=== PATIENT | female | born 1965 | race Caucasian/White ===

== ENCOUNTER 2019-04-06 16:15 | Emergency (ER) | payer OTHER ==
[~2019-04-06] VITALS: Ht 165.1 cm; Wt 97.5 kg
[~2019-04-06 16:15] MED LIST: Armour Thyroid90 MG PO; BUPR100ER PO
[2019-04-06 17:30] LABS: BASOPHILS ABSOLUTE AUTO 0.03 K/mm3 (0.00-0.23); BASOPHILS PERCENT AUTO 0 % (0-2); EOSINOPHILS PERCENT AUTO 2 % (0-6); Hematocrit 42.9 % (33.0-51.0); IMMATURE GRAN ABSOLUTE AUTO 0.02 K/mm3 (0.00-0.10); IMMATURE GRAN PERCENT AUTO 0 % (0-1); LYMPHOCYTES ABSOLUTE AUTO 2.35 K/mm3 (0.84-5.20); LYMPHOCYTES PERCENT AUTO 35 % (21-46); MONOCYTES ABSOLUTE AUTO 0.37 K/mm3 (0.16-1.47); MONOCYTES PERCENT AUTO 6 % (4-13); Mean Corpuscular HGB 28.6 pg (26.0-34.0); Mean Corpuscular HGB Conc 32.6 g/dL (31.5-36.5); Mean Corpuscular Volume 88 fL (80-100); Mean Platelet Volume 8.9 fL (9.1-12.4); NEUTROPHILS ABSOLUTE AUTO 3.83 K/mm3 (1.96-9.15); NEUTROPHILS PERCENT AUTO 57 % (41-73); Platelet Count 332 K/mm3 (150-400); RDW Coefficient Variation 12.9 % (11.7-14.2); RDW Standard Deviation 41.7 fL (35.1-46.3); Red Blood Cell Count 4.89 M/mm3 (3.80-5.20)
[2019-04-06 17:44] LABS: International Normalized Ratio 0.99; Prothrombin Time Results 10.5 Sec (9.7-11.5)
[2019-04-06 17:58] LABS: Alanine Aminotransfer (ALT/SGP 23 U/L (12-78); Albumin, Blood 3.5 g/dL (3.4-5.0); Alk Phos 78 U/L (50-136); Anion Gap 4 mmol/L (6-16); Aspartate Aminotrans (AST/SGOT 23 U/L (12-37); Bilirubin, Total 0.2 mg/dL (0.1-1.0); Blood Urea Nitrogen 17 mg/dL (8-24); Bun/Creatinine Ratio 17.3 (12.0-20.0); CO2, Blood 29 mmol/L (21-32); Calcium, Blood 9.1 mg/dL (8.5-10.1); Chloride, Blood 110 mmol/L (98-108); Creatinine, Blood 0.98 mg/dL (0.40-1.00); Globulin, Blood 3.5 g/dL (2.2-4.0); Glomerular Filtration Rate >60 (60-); Glucose, Blood 120 mg/dL (70-99); Potassium, Blood 3.8 mmol/L (3.5-5.5); Sodium, Blood 143 mmol/L (136-145)
== END 2019-04-06 21:15 | disposition short-term general hospital (02) ==
LOC: ER 16:15
PROVIDERS: Physician Assistant
DX: G93.89 Other specified disorders of brain (principal); Z88.2 Allergy status to sulfonamides; Z79.899 Other long term (current) drug therapy
CPT/HCPCS: 36415; 70450; 80053; 82947; 85025; 85610; 93005; 93010; 96374; 99285-25; J1100

== ENCOUNTER 2019-04-26 16:41 | Emergency (ER) | payer OTHER ==
[~2019-04-26] VITALS: Ht 160 cm; Wt 82.1 kg
[2019-04-26] MEDS ORDERED: ALPR.25 PO (18:42)
[2019-04-26] MEDS ORDERED: AM STRESS PO (18:44)
[2019-04-26] MEDS ORDERED: VITAMIN D35000 UNIT PO (18:45)
[2019-04-26] MEDS ORDERED: Lexapro 10 mg T10 MG PO (22:19)
[2019-04-26] MEDS ORDERED: Klonopin0.5 MG PO (22:19)
== END 2019-04-26 22:50 | disposition home or self-care (01) ==
LOC: ER 16:41
DX: F32.9 Major depressive disorder, single episode, unspecified (principal); F41.9 Anxiety disorder, unspecified; Z88.2 Allergy status to sulfonamides; Z79.899 Other long term (current) drug therapy
CPT/HCPCS: 99284; Q3014

== ENCOUNTER → 2019-08-11 | Outpatient (CLI) | payer OTHER ==
[~2019-08-11] MED LIST changes: +ALPR.25 PO; +AM STRESS PO; +Klonopin0.5 MG PO; +Lexapro 10 mg T10 MG PO; +VITAMIN D35000 UNIT PO
== END | disposition home or self-care (01) ==
LOC: OLS 17:24 → LAB SHORT 17:24
DX: R19.7 Diarrhea, unspecified (principal)
CPT/HCPCS: 87177; 87209

== ENCOUNTER 2020-04-01 00:32 | Emergency (ER) | payer OTHER ==
[~2020-04-01] VITALS: Ht 160 cm; Wt 66.2 kg
[2020-04-01] MEDS ORDERED: LEVSOD25 PO (01:18)
[2020-04-01] MEDS ORDERED: CAPE500 (01:19)
[2020-04-01] MEDS ORDERED: OMEP20ER PO (02:02)
[2020-04-01] MEDS ORDERED: SUCR1 PO (02:02)
== END 2020-04-01 02:00 | disposition home or self-care (01) ==
LOC: ER 00:32
DX: R20.2 Paresthesia of skin (principal); M79.81 Nontraumatic hematoma of soft tissue; F32.9 Major depressive disorder, single episode, unspecified; E03.9 Hypothyroidism, unspecified; Z88.2 Allergy status to sulfonamides; Z79.899 Other long term (current) drug therapy
CPT/HCPCS: 99283

== ENCOUNTER 2020-10-24 14:30 | Emergency (ER) | payer OTHER ==
[~2020-10-24] VITALS: Ht 162.6 cm; Wt 68.0 kg
[~2020-10-24 14:30] MED LIST changes: +CAPE500; +LEVSOD25 PO; +OMEP20ER PO; +SUCR1 PO
[2020-10-24] MEDS ORDERED: EUTHYROX100 MC1 PO (14:52)
[2020-10-24] MEDS ORDERED: Lexapro5 MG PO (14:53)
[2020-10-24] MEDS ORDERED: HYDROCODONE-AC1 EA11 PO (14:53)
[2020-10-24] MEDS ORDERED: ANASTROZOLE1 M2 PO (14:53)
[2020-10-24] MEDS ORDERED: VERZENIO150 MG PO (14:53)
--- NOTE | 2020-10-24 15:03 | NUR ---
Rapid presponse called to ultra-sound rm 4, I find out that patient's spouse, Radha is in the waiting rm. Patient is brought to ER rm 3 and I bring patient around through admitting and we meet patient in the rm. Radha tells me about their 37yrs of marriage, their 4 grown children and the patient's long pa with breast cancer metastasized to her brain. He talks about the many ups and downs with the pa and how he has been along for the ride. I normalize his experience and stay with Radha provide therapeutic listening and a calming presence until the ER doctor comes in. I will continue to remain available to patient and family.
[2020-10-24 15:11] LABS: BASOPHILS ABSOLUTE AUTO 0.06 K/mm3 (0.00-0.23); BASOPHILS PERCENT AUTO 1 % (0-2); EOSINOPHILS ABSOLUTE AUTO 0.05 K/mm3 (0.00-0.68); EOSINOPHILS PERCENT AUTO 1 % (0-6); Hematocrit 37.9 % (33.0-51.0); Hemoglobin 12.6 g/dL (11.5-16.0); IMMATURE GRAN ABSOLUTE AUTO 0.02 K/mm3 (0.00-0.10); IMMATURE GRAN PERCENT AUTO 0 % (0-1); LYMPHOCYTES ABSOLUTE AUTO 2.36 K/mm3 (0.84-5.20); LYMPHOCYTES PERCENT AUTO 38 % (21-46); MONOCYTES ABSOLUTE AUTO 0.33 K/mm3 (0.16-1.47); MONOCYTES PERCENT AUTO 5 % (4-13); Mean Corpuscular HGB 34.3 pg (26.0-34.0); Mean Corpuscular HGB Conc 33.2 g/dL (31.5-36.5); Mean Corpuscular Volume 103 fL (80-100); Mean Platelet Volume 9.1 fL (9.1-12.4); NEUTROPHILS ABSOLUTE AUTO 3.41 K/mm3 (1.96-9.15); NEUTROPHILS PERCENT AUTO 55 % (41-73); Platelet Count 182 K/mm3 (150-400); RDW Coefficient Variation 13.3 % (11.7-14.2); RDW Standard Deviation 50.4 fL (35.1-46.3); Red Blood Cell Count 3.67 M/mm3 (3.80-5.20); White Blood Cell Count 6.23 K/mm3 (4.00-11.30)
[2020-10-24 15:43] LABS: Albumin, Blood 2.9 g/dL (3.4-5.0); Albumin/Globulin Ratio 0.8 (0.8-1.8); Bilirubin, Total 0.4 mg/dL (0.1-1.0); Bun/Creatinine Ratio 15.8 (12.0-20.0); Calcium, Blood 8.6 mg/dL (8.5-10.1); Creatinine, Blood 1.2 mg/dL (0.40-1.00); Globulin, Blood 3.5 g/dL (2.2-4.0); Total Protein, Blood 6.4 g/dL (6.4-8.2)
[2020-10-24] MEDS ORDERED: DEXA1 PO (17:31)
== END 2020-10-24 18:57 | disposition short-term general hospital (02) ==
LOC: ER 14:30
PROVIDERS: Emergency Medicine
DX: C79.31 Secondary malignant neoplasm of brain (principal); R56.9 Unspecified convulsions; E03.9 Hypothyroidism, unspecified; Z88.2 Allergy status to sulfonamides; Z79.899 Other long term (current) drug therapy
CPT/HCPCS: 36415; 70450; 80053; 85025; 93005; 93010; 96365; 96374; 96375; 99285-25; J1953; J2405

== ENCOUNTER 2021-01-14 14:03 | Emergency (ER) | payer OTHER ==
[~2021-01-14] VITALS: Ht 160 cm; Wt 68.0 kg
[~2021-01-14 14:03] MED LIST changes: +ANASTROZOLE1 M2 PO; +DEXA1 PO; +EUTHYROX100 MC1 PO; +HYDROCODONE-AC1 EA11 PO; +Lexapro5 MG PO; +VERZENIO150 MG PO
[2021-01-14 15:10] LABS: BASOPHILS ABSOLUTE AUTO 0.01 K/mm3 (0.00-0.23); BASOPHILS PERCENT AUTO 0 % (0-2); EOSINOPHILS ABSOLUTE AUTO 0.02 K/mm3 (0.00-0.68); EOSINOPHILS PERCENT AUTO 1 % (0-6); Hematocrit 38.6 % (33.0-51.0); Hemoglobin 12.7 g/dL (11.5-16.0); IMMATURE GRAN ABSOLUTE AUTO 0.02 K/mm3 (0.00-0.10); IMMATURE GRAN PERCENT AUTO 1 % (0-1); LYMPHOCYTES PERCENT AUTO 27 % (21-46); MONOCYTES ABSOLUTE AUTO 0.25 K/mm3 (0.16-1.47); MONOCYTES PERCENT AUTO 6 % (4-13); Mean Corpuscular HGB 35.9 pg (26.0-34.0); Mean Corpuscular HGB Conc 32.9 g/dL (31.5-36.5); Mean Corpuscular Volume 109 fL (80-100); Mean Platelet Volume 9.8 fL (9.1-12.4); NEUTROPHILS ABSOLUTE AUTO 2.89 K/mm3 (1.96-9.15); NEUTROPHILS PERCENT AUTO 66 % (41-73); NRBC ABSOLUTE 0.02 K/mm3 (0.00-0.02); NRBC Auto 0.5 /100 WBC (0.0-0.2); Platelet Count 148 K/mm3 (150-400); RDW Coefficient Variation 12.2 % (11.7-14.2); Red Blood Cell Count 3.54 M/mm3 (3.80-5.20); White Blood Cell Count 4.39 K/mm3 (4.00-11.30)
[2021-01-14 15:31] LABS: Alanine Aminotransfer (ALT/SGP 86 U/L (12-78); Albumin, Blood 2.7 g/dL (3.4-5.0); Albumin/Globulin Ratio 0.8 (0.8-1.8); Alk Phos 57 U/L (50-136); Anion Gap 2 mmol/L (6-16); Aspartate Aminotrans (AST/SGOT 25 U/L (12-37); Bilirubin, Total 0.3 mg/dL (0.1-1.0); Blood Urea Nitrogen 24 mg/dL (8-24); Bun/Creatinine Ratio 26.6 (12.0-20.0); CO2, Blood 31 mmol/L (21-32); Calcium, Blood 8.3 mg/dL (8.5-10.1); Chloride, Blood 106 mmol/L (98-108); Globulin, Blood 3.2 g/dL (2.2-4.0); Glomerular Filtration Rate >60 (60-); Glucose, Blood 93 mg/dL (70-99); Potassium, Blood 4.4 mmol/L (3.5-5.5); Sodium, Blood 139 mmol/L (136-145); Total Protein, Blood 5.9 g/dL (6.4-8.2)
[2021-01-14] MEDS ORDERED: SYNTHROID150 MC1 PO (15:49)
[2021-01-14] MEDS ORDERED: LEVETIRACETAM PO (15:49)
[2021-01-14] MEDS ORDERED: POTCHL20ER PO (18:14)
[2021-01-14] MEDS ORDERED: LASIX20 M2 PO (18:14)
[2021-01-14] MEDS ORDERED: OXYC5 PO (18:14)
== END 2021-01-14 18:41 | disposition home or self-care (01) ==
LOC: ER 14:03
PROVIDERS: Physician Assistant
DX: R60.0 Localized edema (principal); S50.11XA Contusion of right forearm, initial encounter; E03.9 Hypothyroidism, unspecified; Z79.899 Other long term (current) drug therapy; X58.XXXA Exposure to other specified factors, initial encounter
CPT/HCPCS: 36415; 71045; 80053; 83880; 84484; 85025; 93005; 93010; 93970; 99284-25

== ENCOUNTER 2021-01-29 12:11 | Emergency (ER) | payer OTHER ==
[~2021-01-29] VITALS: Ht 170.2 cm; Wt 81.7 kg
[~2021-01-29 12:11] MED LIST changes: +LASIX20 M2 PO; +LEVETIRACETAM PO; +OXYC5 PO; +POTCHL20ER PO; +SYNTHROID150 MC1 PO
[2021-01-29 12:59] LABS: BASOPHILS ABSOLUTE AUTO 0.02 K/mm3 (0.00-0.23); BASOPHILS PERCENT AUTO 1 % (0-2); EOSINOPHILS ABSOLUTE AUTO 0.02 K/mm3 (0.00-0.68); EOSINOPHILS PERCENT AUTO 1 % (0-6); Hematocrit 34.7 % (33.0-51.0); Hemoglobin 11.6 g/dL (11.5-16.0); Mean Corpuscular HGB 33.7 pg (26.0-34.0); Mean Corpuscular HGB Conc 33.4 g/dL (31.5-36.5); Mean Corpuscular Volume 101 fL (80-100); Mean Platelet Volume 8.6 fL (9.1-12.4); Platelet Count 272 K/mm3 (150-400); RDW Coefficient Variation 11.8 % (11.7-14.2); RDW Standard Deviation 43.4 fL (35.1-46.3); Red Blood Cell Count 3.44 M/mm3 (3.80-5.20); White Blood Cell Count 2.92 K/mm3 (4.00-11.30)
[2021-01-29 13:04] LABS: IMMATURE GRAN ABSOLUTE AUTO 0.03 K/mm3 (0.00-0.10); IMMATURE GRAN PERCENT AUTO 1 % (0-1); LYMPHOCYTES ABSOLUTE AUTO 0.57 K/mm3 (0.84-5.20); LYMPHOCYTES PERCENT AUTO 20 % (21-46); MONOCYTES ABSOLUTE AUTO 0.11 K/mm3 (0.16-1.47); MONOCYTES PERCENT AUTO 4 % (4-13); NEUTROPHILS ABSOLUTE AUTO 2.17 K/mm3 (1.96-9.15); NEUTROPHILS PERCENT AUTO 74 % (41-73)
[2021-01-29 13:24] LABS: Alanine Aminotransfer (ALT/SGP 51 U/L (12-78); Albumin, Blood 2.4 g/dL (3.4-5.0); Albumin/Globulin Ratio 0.6 (0.8-1.8); Alk Phos 76 U/L (50-136); Anion Gap 3 mmol/L (6-16); Aspartate Aminotrans (AST/SGOT 24 U/L (12-37); Bilirubin, Total 0.3 mg/dL (0.1-1.0); Blood Urea Nitrogen 13 mg/dL (8-24); Bun/Creatinine Ratio 12.7 (12.0-20.0); CO2, Blood 32 mmol/L (21-32); Calcium, Blood 8.7 mg/dL (8.5-10.1); Chloride, Blood 101 mmol/L (98-108); Creatinine, Blood 1.02 mg/dL (0.40-1.00); Globulin, Blood 4.2 g/dL (2.2-4.0); Glomerular Filtration Rate 59 (60-); Glucose, Blood 91 mg/dL (70-99); Potassium, Blood 4.3 mmol/L (3.5-5.5); Sodium, Blood 136 mmol/L (136-145); Total Protein, Blood 6.6 g/dL (6.4-8.2); Troponin I <0.015 ng/mL (0.000-0.040)
[2021-01-29 14:18] LABS: BASOPHILS ABSOLUTE MAN 0.05 K/mm3 (0.00-0.23); BASOPHILS PERCENT MAN 2 % (0-2); EOSINOPHILS PERCENT MAN 0 % (0-6); LYMPHOCYTES % ATYPICAL MANUAL 2 % (0-0); LYMPHOCYTES ABSOLUTE MAN 0.37 K/mm3 (0.84-5.20); LYMPHOCYTES PERCENT MAN 11 % (21-46); METAMYELOCYTE ABSOLUTE MAN 0.02 K/mm3 (0.00-0.00); METAMYELOCYTE PERCENT MAN 1 % (0-0); MONOCYTES ABSOLUTE MAN 0.11 K/mm3 (0.16-1.47); MONOCYTES PERCENT MAN 4 % (4-13); NEUTROPHILS ABSOLUTE MAN 2.33 K/mm3 (1.96-9.15); SEG NEUTROPHILS PERCENT MAN 80 % (41-73); TOTAL CELLS COUNTED 100
[2021-01-29 15:20] LABS: Source, Urine Clean Catch
[2021-01-29 15:44] LABS: Appearance, Urine Clear (Clear); Bilirubin, Urine Neg (Neg); Blood, Urine 4+ (Neg); Color, Urine Amber (P-Yellow); Glucose Qualitative, Urine Neg (Neg); Ketones, Urine Neg (Neg); Leukocyte Esterase, Urine Neg (Neg); Nitrite, Urine Neg (Neg); Protein, Urine 1+ (Neg); Urobilinogen, Urine NORM (Normal)
[2021-01-29 16:06] LABS: Bacteria Few /hpf; Mucus Light (0-Heavy); Squamous Epithelial Cells Few /hpf (Few); White Blood Cells, Urine 0-2 /hpf (0-5)
[2021-01-29 16:07] LABS: Transitional Epithelial Cells Rare /hpf (0-Rare)
[2021-01-29] MEDS ORDERED: AMOCLA875 PO (17:57)
== END 2021-01-29 18:58 | disposition home or self-care (01) ==
LOC: ER 12:11
PROVIDERS: Emergency Medicine
DX: J18.9 Pneumonia, unspecified organism (principal); E03.9 Hypothyroidism, unspecified; Z88.2 Allergy status to sulfonamides; Z79.899 Other long term (current) drug therapy
CPT/HCPCS: 36415; 70450; 71046; 71260; 80053; 81001; 83605; 84484; 85025; 87040; 93005; 93010; 99284-25; A9270; Q9967

== ENCOUNTER 2021-02-09 10:05 | Emergency (ER) | payer OTHER ==
[~2021-02-09] VITALS: Ht 160 cm; Wt 71.2 kg
[~2021-02-09 10:05] MED LIST changes: +AMOCLA875 PO
[2021-02-09 11:34] LABS: Hematocrit 31.5 % (33.0-51.0); Hemoglobin 10.3 g/dL (11.5-16.0); Mean Corpuscular HGB 33.3 pg (26.0-34.0); Mean Corpuscular HGB Conc 32.7 g/dL (31.5-36.5); Mean Corpuscular Volume 102 fL (80-100); Mean Platelet Volume 8.6 fL (9.1-12.4); Platelet Count 180 K/mm3 (150-400); RDW Coefficient Variation 11.8 % (11.7-14.2); RDW Standard Deviation 42.8 fL (35.1-46.3); Red Blood Cell Count 3.09 M/mm3 (3.80-5.20); White Blood Cell Count 2.39 K/mm3 (4.00-11.30)
[2021-02-09 11:49] LABS: Albumin, Blood 2.3 g/dL (3.4-5.0); Albumin/Globulin Ratio 0.6 (0.8-1.8); Bilirubin, Total 0.1 mg/dL (0.1-1.0); Bun/Creatinine Ratio 10.4 (12.0-20.0); Calcium, Blood 8.8 mg/dL (8.5-10.1); Creatinine, Blood 1.06 mg/dL (0.40-1.00); Globulin, Blood 3.6 g/dL (2.2-4.0); Potassium, Blood 4.4 mmol/L (3.5-5.5); Total Protein, Blood 5.9 g/dL (6.4-8.2)
[2021-02-09 12:21] LABS: BAND PERCENT MAN 1 % (0-8); BASOPHILS ABSOLUTE MAN 0.04 K/mm3 (0.00-0.23); BASOPHILS PERCENT MAN 2 % (0-2); EOSINOPHILS PERCENT MAN 0 % (0-6); LYMPHOCYTES % ATYPICAL MANUAL 1 % (0-0); LYMPHOCYTES ABSOLUTE MAN 1.21 K/mm3 (0.84-5.20); LYMPHOCYTES PERCENT MAN 50 % (21-46); MONOCYTES ABSOLUTE MAN 0.04 K/mm3 (0.16-1.47); MONOCYTES PERCENT MAN 2 % (4-13); MYELOCYTE ABSOLUTE MAN 0.02 K/mm3 (0.00-0.00); MYELOCYTE PERCENT MAN 1 % (0-0); NEUTROPHILS ABSOLUTE MAN 1.05 K/mm3 (1.96-9.15); SEG NEUTROPHILS PERCENT MAN 43 % (41-73); TOTAL CELLS COUNTED 100
[2021-02-09 12:48] LABS: International Normalized Ratio 0.97; Prothrombin Time Results 10.5 Sec (9.7-11.5)
[2021-02-09] MEDS ORDERED: PRED20 PO (14:06)
== END 2021-02-09 14:30 | disposition home or self-care (01) ==
LOC: ER 10:05
PROVIDERS: Student in an Organized Health Care Education/Training Program
DX: L27.1 Localized skin eruption due to drugs and medicaments taken internally (principal); T36.3X5A Adverse effect of macrolides, initial encounter; E03.9 Hypothyroidism, unspecified; Z88.2 Allergy status to sulfonamides; Z79.899 Other long term (current) drug therapy
CPT/HCPCS: 36415; 71046; 80053; 83605; 85025; 85610; 85730; 87040; 93005; 93010; 99283-25; A9270; J7030; J7512

== ENCOUNTER → 2021-04-17 | Outpatient (CLI) | payer OTHER ==
[~2021-04-17] MED LIST changes: +NEURONTIN300 MG PO; +Nitrofurantoin100 M1 PO; +PRED20 PO; +Prednisone20 MG PO
== END | disposition home or self-care (01) ==
LOC: LAB 09:19 → LAB SHORT 09:19
DX: N31.9 Neuromuscular dysfunction of bladder, unspecified (principal)
CPT/HCPCS: 87086

== ENCOUNTER 2021-04-19 16:07 | Emergency (ER) | payer OTHER ==
[~2021-04-19] VITALS: Ht 160 cm; Wt 69.4 kg
[~2021-04-19 16:07] MED LIST changes: -NEURONTIN300 MG PO; -Nitrofurantoin100 M1 PO; -Prednisone20 MG PO
[2021-04-19] MEDS ORDERED: Nitrofurantoin100 M1 PO (16:16)
[2021-04-19] MEDS ORDERED: NEURONTIN300 MG PO (16:16)
[2021-04-19] MEDS ORDERED: OXYC5 PO (16:17)
[2021-04-19 18:51] LABS: Source, Urine Catheter
[2021-04-19 18:55] LABS: Appearance, Urine Clear (Clear); Bilirubin, Urine Neg (Neg); Blood, Urine Neg (Neg); Color, Urine Yellow (P-Yellow); Glucose Qualitative, Urine Neg (Neg); Ketones, Urine Neg (Neg); Leukocyte Esterase, Urine Neg (Neg); Nitrite, Urine Neg (Neg); Protein, Urine Neg (Neg); Urobilinogen, Urine NORM (Normal); pH, Urine 6.5 (5.0-8.0)
[2021-04-19 19:04] LABS: BASOPHILS ABSOLUTE AUTO 0.05 K/mm3 (0.00-0.23); BASOPHILS PERCENT AUTO 1 % (0-2); EOSINOPHILS ABSOLUTE AUTO 0.07 K/mm3 (0.00-0.68); EOSINOPHILS PERCENT AUTO 2 % (0-6); Hemoglobin 12.4 g/dL (11.5-16.0); IMMATURE GRAN ABSOLUTE AUTO 0.03 K/mm3 (0.00-0.10); IMMATURE GRAN PERCENT AUTO 1 % (0-1); LYMPHOCYTES ABSOLUTE AUTO 1.59 K/mm3 (0.84-5.20); LYMPHOCYTES PERCENT AUTO 36 % (21-46); MONOCYTES ABSOLUTE AUTO 0.26 K/mm3 (0.16-1.47); MONOCYTES PERCENT AUTO 6 % (4-13); Mean Corpuscular HGB 33.1 pg (26.0-34.0); Mean Corpuscular HGB Conc 33.5 g/dL (31.5-36.5); Mean Corpuscular Volume 99 fL (80-100); Mean Platelet Volume 9.4 fL (9.1-12.4); NEUTROPHILS ABSOLUTE AUTO 2.46 K/mm3 (1.96-9.15); NEUTROPHILS PERCENT AUTO 55 % (41-73); Platelet Count 208 K/mm3 (150-400); RDW Coefficient Variation 12.4 % (11.7-14.2); RDW Standard Deviation 44.6 fL (35.1-46.3); Red Blood Cell Count 3.75 M/mm3 (3.80-5.20); White Blood Cell Count 4.46 K/mm3 (4.00-11.30)
[2021-04-19 19:21] LABS: Albumin, Blood 3.2 g/dL (3.4-5.0); Bilirubin, Total 0.3 mg/dL (0.1-1.0); Bun/Creatinine Ratio 9.8 (12.0-20.0); Calcium, Blood 8.9 mg/dL (8.5-10.1); Creatinine, Blood 1.02 mg/dL (0.40-1.00); Globulin, Blood 3.3 g/dL (2.2-4.0); Potassium, Blood 4.6 mmol/L (3.5-5.5); Total Protein, Blood 6.5 g/dL (6.4-8.2)
[2021-04-19] MEDS ORDERED: Prednisone20 MG PO (23:41)
== END 2021-04-20 00:10 | disposition home or self-care (01) ==
LOC: ER 16:07
PROVIDERS: Family Medicine
DX: C50.919 Malignant neoplasm of unspecified site of unspecified female breast (principal); C79.31 Secondary malignant neoplasm of brain; C78.00 Secondary malignant neoplasm of unspecified lung; E03.9 Hypothyroidism, unspecified; R33.9 Retention of urine, unspecified; R93.89 Abnormal findings on diagnostic imaging of other specified body structures; Z79.899 Other long term (current) drug therapy; Z79.890 Hormone replacement therapy
CPT/HCPCS: 36415; 72158; 80053; 81003; 85025; 93005; 93010; 99285-25; A9579

== ENCOUNTER → 2021-06-20 | Outpatient (CLI) | payer OTHER ==
[~2021-06-20] MED LIST changes: +NEURONTIN300 MG PO; +Nitrofurantoin100 M1 PO; +Prednisone20 MG PO
[2021-06-20 17:51] LABS: Appearance, Urine Clear (Clear); Bilirubin, Urine Neg (Neg); Blood, Urine Neg (Neg); Color, Urine Yellow (P-Yellow); Glucose Qualitative, Urine Neg (Neg); Ketones, Urine Neg (Neg); Leukocyte Esterase, Urine 3+ (Neg); Nitrite, Urine Pos (Neg); Protein, Urine Neg (Neg); Specific Gravity, Urine 1.015 (1.003-1.022); Urobilinogen, Urine NORM (Normal)
[2021-06-20 18:10] LABS: Bacteria Many /hpf; Red Blood Cells, Urine 0-2 /hpf (0-2); Squamous Epithelial Cells Rare /hpf (Few)
== END | disposition home or self-care (01) ==
LOC: LAB HH 16:31 → LAB 16:31 → LAB SHORT 16:31
PROVIDERS: Nurse Practitioner Family
DX: R39.9 Unspecified symptoms and signs involving the genitourinary system (principal); Z87.440 Personal history of urinary (tract) infections
CPT/HCPCS: 81001; 87077; 87086; 87186

== ENCOUNTER → 2021-07-04 | Outpatient (CLI) | payer OTHER ==
[2021-07-04 16:42] LABS: Appearance, Urine Clear (Clear); Bilirubin, Urine Neg (Neg); Blood, Urine 1+ (Neg); Color, Urine Yellow (P-Yellow); Glucose Qualitative, Urine Neg (Neg); Ketones, Urine Neg (Neg); Leukocyte Esterase, Urine Neg (Neg); Nitrite, Urine Neg (Neg); Protein, Urine Neg (Neg); Urobilinogen, Urine NORM (Normal)
[2021-07-04 16:59] LABS: Bacteria Few /hpf; Mucus Light (0-Heavy); Squamous Epithelial Cells Few /hpf (Few)
== END | disposition home or self-care (01) ==
LOC: LAB HH 15:15
PROVIDERS: Nurse Practitioner Family
DX: N39.0 Urinary tract infection, site not specified (principal); R82.79 Other abnormal findings on microbiological examination of urine
CPT/HCPCS: 81001

== ENCOUNTER 2021-07-07 18:39 | Inpatient (IN) | payer OTHER ==
[~2021-07-07] VITALS: Ht 160 cm; Wt 70.9 kg
[2021-07-07 19:53] LABS: Alanine Aminotransfer (ALT/SGP 367 U/L (12-78); Albumin, Blood 2.4 g/dL (3.4-5.0); Albumin/Globulin Ratio 0.7 (0.8-1.8); Alk Phos 128 U/L (50-136); Anion Gap 8 mmol/L (6-16); Aspartate Aminotrans (AST/SGOT 138 U/L (12-37); Bilirubin, Total 0.6 mg/dL (0.1-1.0); Blood Urea Nitrogen 34 mg/dL (8-24); Bun/Creatinine Ratio 42.6 (12.0-20.0); CO2, Blood 25 mmol/L (21-32); Calcium, Blood 8.8 mg/dL (8.5-10.1); Chloride, Blood 109 mmol/L (98-108); Globulin, Blood 3.5 g/dL (2.2-4.0); Glomerular Filtration Rate >60 (60-); Glucose, Blood 146 mg/dL (70-99); Potassium, Blood 4.3 mmol/L (3.5-5.5); Sodium, Blood 142 mmol/L (136-145); Total Protein, Blood 5.9 g/dL (6.4-8.2)
[2021-07-07 21:27] LABS: BASOPHILS ABSOLUTE AUTO 0.01 K/mm3 (0.00-0.23); BASOPHILS PERCENT AUTO 0 % (0-2); Hematocrit 46.5 % (33.0-51.0); Hemoglobin 15.9 g/dL (11.5-16.0); LYMPHOCYTES ABSOLUTE AUTO 0.69 K/mm3 (0.84-5.20); LYMPHOCYTES PERCENT AUTO 29 % (21-46); MONOCYTES ABSOLUTE AUTO 0.02 K/mm3 (0.16-1.47); MONOCYTES PERCENT AUTO 1 % (4-13); Mean Corpuscular HGB Conc 34.2 g/dL (31.5-36.5); Mean Corpuscular Volume 94 fL (80-100); Mean Platelet Volume 9.6 fL (9.1-12.4); NRBC ABSOLUTE 0.03 K/mm3 (0.00-0.02); NRBC Auto 1.2 /100 WBC (0.0-0.2); Platelet Count 64 K/mm3 (150-400); RDW Coefficient Variation 12.6 % (11.7-14.2); RDW Standard Deviation 43.4 fL (35.1-46.3); Red Blood Cell Count 4.97 M/mm3 (3.80-5.20); White Blood Cell Count 2.42 K/mm3 (4.00-11.30)
[2021-07-07 21:28] LABS: EOSINOPHILS PERCENT AUTO 0 % (0-6); IMMATURE GRAN ABSOLUTE AUTO 0.08 K/mm3 (0.00-0.10); IMMATURE GRAN PERCENT AUTO 3 % (0-1); NEUTROPHILS ABSOLUTE AUTO 1.62 K/mm3 (1.96-9.15); NEUTROPHILS PERCENT AUTO 67 % (41-73)
[2021-07-08 01:03] LABS: SARS-Cov-2 (COVID-19) PCR, MMC NEGATIVE (NEGATIVE)
[2021-07-08 03:00] LABS: Source, Urine Catheter
[2021-07-08 03:02] LABS: Appearance, Urine Hazy (Clear); Bilirubin, Urine Neg (Neg); Blood, Urine 2+ (Neg); Color, Urine Yellow (P-Yellow); Glucose Qualitative, Urine Neg (Neg); Ketones, Urine Neg (Neg); Leukocyte Esterase, Urine 2+ (Neg); Nitrite, Urine Neg (Neg); Protein, Urine 1+ (Neg); Specific Gravity, Urine 1.015 (1.003-1.022); Urobilinogen, Urine NORM (Normal)
[2021-07-08 03:08] LABS: Bacteria Many /hpf; Red Blood Cells, Urine 0-2 /hpf (0-2); Squamous Epithelial Cells Not Seen /hpf (Few); White Blood Cells, Urine 50-100 /hpf (0-5); Yeast/Fungi Urine Few /hpf
[2021-07-08 04:14] LABS: Hematocrit 36.6 % (33.0-51.0); Hemoglobin 12.4 g/dL (11.5-16.0); Mean Corpuscular HGB 31.7 pg (26.0-34.0); Mean Corpuscular HGB Conc 33.9 g/dL (31.5-36.5); Mean Corpuscular Volume 94 fL (80-100); Mean Platelet Volume 10.1 fL (9.1-12.4); NRBC ABSOLUTE 0.24 K/mm3 (0.00-0.02); NRBC Auto 16.4 /100 WBC (0.0-0.2); RDW Standard Deviation 44.5 fL (35.1-46.3); Red Blood Cell Count 3.91 M/mm3 (3.80-5.20); White Blood Cell Count 1.46 K/mm3 (4.00-11.30)
[2021-07-08 04:20] LABS: Platelet Count 39 K/mm3 (150-400)
[2021-07-08 04:34] LABS: Albumin, Blood 1.3 g/dL (3.4-5.0); Albumin/Globulin Ratio 0.5 (0.8-1.8); Bilirubin, Total 0.5 mg/dL (0.1-1.0); Bun/Creatinine Ratio 32.5 (12.0-20.0); Calcium, Blood 6.7 mg/dL (8.5-10.1); Creatinine, Blood 1.14 mg/dL (0.40-1.00); Globulin, Blood 2.5 g/dL (2.2-4.0); Potassium, Blood 3.6 mmol/L (3.5-5.5); Total Protein, Blood 3.8 g/dL (6.4-8.2)
[2021-07-08 05:58] LABS: BAND PERCENT MAN 11 % (0-8); BASOPHILS PERCENT MAN 0 % (0-2); EOSINOPHILS ABSOLUTE MAN 0.01 K/mm3 (0.00-0.68); EOSINOPHILS PERCENT MAN 1 % (0-6); LYMPHOCYTES PERCENT MAN 55 % (21-46); METAMYELOCYTE ABSOLUTE MAN 0.01 K/mm3 (0.00-0.00); METAMYELOCYTE PERCENT MAN 1 % (0-0); MONOCYTES ABSOLUTE MAN 0.01 K/mm3 (0.16-1.47); MONOCYTES PERCENT MAN 1 % (4-13); MYELOCYTE ABSOLUTE MAN 0.05 K/mm3 (0.00-0.00); MYELOCYTE PERCENT MAN 4 % (0-0); NEUTROPHILS ABSOLUTE MAN 0.55 K/mm3 (1.96-9.15); SEG NEUTROPHILS PERCENT MAN 27 % (41-73); TOTAL CELLS COUNTED 100
--- NOTE | 2021-07-08 07:30 | NUR ---
ASSUMED CARE BEDSIDE REPORT COMPLETED W/ SURVEY RESEARCH ANALYST NURSE. PATIENT IS INTUBATED ON AC/VC 20/350/5/100% W/ SPO2 100% AND RR IN HIGH 20'S TO LOW 30'S. NO SEDATION AT THIS TIME W/ NO PURPOSEFUL MOVEMENTS. TEMP FERREIRA PATENT AND DRAINING TO GRAVITY. ART LINE TO LT FEMORAL ARTERY AND CENTRAL LINE TO RT IJ. NEOSYNEPHRINE AND VASOPRESSIN ARE OFF AT THIS TIME, BUT STILL ATTACHED TO CL. CL INF LEVOPHED @ 30MCG/MIN, ZOSYN @ 25ML/HR, NS @ 125ML/HR, AND VERSED @ 2MG/HR. AT BEDSIDE TO ANSWER QUESTIONS AND PROVIDE DETAILED HISTORY.
--- NOTE | 2021-07-08 10:38 | NUR ---
Echocardiogram completed.
[2021-07-08 13:28] LABS: Bun/Creatinine Ratio 32.7 (12.0-20.0); Calcium, Blood 7.3 mg/dL (8.5-10.1); Creatinine, Blood 1.01 mg/dL (0.40-1.00); Potassium, Blood 3.3 mmol/L (3.5-5.5)
[2021-07-08 15:57] LABS: Magnesium, Blood 1.6 mg/dL (1.6-2.4); Phosphorus, Blood 3.3 mg/dL (2.5-4.9)
--- NOTE | 2021-07-08 16:30 | NUR ---
Discussion with patient's spouse, Radha, Outside patient's rm. Discussed the many stressors and struggles he is facing with his dad's failing health and his 's at the very same time and trying to manage all this with a special needs daughter at home. I normalize his experience, and provide therapetic listening, inspiring scriptures and a calming presence. Radha respond swell and shows signs of an elevated mood.
--- NOTE | 2021-07-08 17:50 | NUR ---
SHIFT SUMMARY PATIENT STILL INTUBATED, VENT SETTINGS AC/VC 20/370/5/80%. PATIENTS AT BEDSIDE THROUGHOUT SHIFT. PATIENT IS NOW BEGINNING TO PULL LT ARM UP TOWARDS CHEST AND HAS GROSS MOVEMENT OF THE BLE WITH NO PURPOSE, INCREASE OF THESE MOVEMENTS W/ STIMULI. EYES ARE STILL MAKING THE WINDHIELD WIPER MOTION AND ARE SLUGGISH TO LIGHT. LUNGS REMAINED CLEAR EXCEPT WHEN REPOSITIONED ONTO RT SIDE. AFTER RESTING ON THE RIGHT SIDE THE LUNG SOUNDS BEGAN CLEARING. OXYGEN DEMANDS ARE HIGHER WHEN ON THE RIGHT SIDE W/ FIO2 80%, INSTEAD OF THE 70% NEEDED ON THE LEFT SIDE. MOTTLING HAS SPREAD AND IS NOW ON BLE FROM KNEES DOWN TO THE FEET AND SPREADING OUTWARD FROM THE ELBOWS. GTTS INFUSING INTO RT IJ CENTRAL LINE; LEVOPHED @ 30MCG/KG/MIN, VASOPRESSIN @ 0.04 UNITS/MIN, NEOSYNEPHRINE @ 40MCG/MIN. PRESSURES MAINTAINING W/ MAP GREATER THAN 60 AND SBP 90 OR GREATER. LT FEMORAL ART LINE STILL PATENT.
[2021-07-09 04:29] LABS: BASOPHILS ABSOLUTE AUTO 0.04 K/mm3 (0.00-0.23); BASOPHILS PERCENT AUTO 1 % (0-2); Hematocrit 33.1 % (33.0-51.0); Hemoglobin 11.4 g/dL (11.5-16.0); Mean Corpuscular HGB 31.8 pg (26.0-34.0); Mean Corpuscular HGB Conc 34.4 g/dL (31.5-36.5); Mean Corpuscular Volume 93 fL (80-100); NRBC ABSOLUTE 0.32 K/mm3 (0.00-0.02); NRBC Auto 9.8 /100 WBC (0.0-0.2); RDW Coefficient Variation 13.7 % (11.7-14.2); Red Blood Cell Count 3.58 M/mm3 (3.80-5.20); White Blood Cell Count 3.25 K/mm3 (4.00-11.30)
[2021-07-09 04:32] LABS: EOSINOPHILS ABSOLUTE AUTO 0.01 K/mm3 (0.00-0.68); EOSINOPHILS PERCENT AUTO 0 % (0-6); IMMATURE GRAN ABSOLUTE AUTO 0.05 K/mm3 (0.00-0.10); IMMATURE GRAN PERCENT AUTO 2 % (0-1); LYMPHOCYTES ABSOLUTE AUTO 1.13 K/mm3 (0.84-5.20); LYMPHOCYTES PERCENT AUTO 35 % (21-46); MONOCYTES ABSOLUTE AUTO 0.06 K/mm3 (0.16-1.47); MONOCYTES PERCENT AUTO 2 % (4-13); Mean Platelet Volume 12.8 fL (9.1-12.4); NEUTROPHILS ABSOLUTE AUTO 1.96 K/mm3 (1.96-9.15); NEUTROPHILS PERCENT AUTO 60 % (41-73); Platelet Count 8 K/mm3 (150-400)
[2021-07-09 04:54] LABS: PCO2 Arterial 28.1 mmHg (35-45); PO2 Arterial 165 mmHg (80-100); pH Blood Arterial 7.34 (7.35-7.45)
[2021-07-09 04:56] LABS: Albumin, Blood 1.1 g/dL (3.4-5.0); Albumin/Globulin Ratio 0.4 (0.8-1.8); Bilirubin, Total 0.5 mg/dL (0.1-1.0); Bun/Creatinine Ratio 33.8 (12.0-20.0); Calcium, Blood 7.3 mg/dL (8.5-10.1); Creatinine, Blood 0.98 mg/dL (0.40-1.00); Globulin, Blood 2.9 g/dL (2.2-4.0); Magnesium, Blood 2.4 mg/dL (1.6-2.4); Phosphorus, Blood 4.8 mg/dL (2.5-4.9); Potassium, Blood 3.9 mmol/L (3.5-5.5)
--- NOTE | 2021-07-09 09:47 | NUR ---
ASSUMED CARE REPORT RECIEVED FROM INFANTRY UNIT LEADER RN. PATIENT'S AT BEDSIDE, LEFT TO GO HOME AND STATED HE WOULD BE BACK LATER WITH HIS DAUGHTERS. NEURO EXAM REMARKABLE FOR NEGATIVE DOLLS EYES, NYSTAGMUS PRESENT, PUPILS REACTIVE TO LIGHT AND SIZE VARIABLE FROM 3-7MM. EYES NOT MIDLINE, THEY MOVE HARD RIGHT, UP AND DOWN AND SOMETIMES EYES MOVE INDEPENDLY OF EACH OTHER. NO SPONT MOVEMENT NOTED TO UPPER EXT. PATIENT WITHDRAWS LEGS FROM NOXIOUS STIMULI. NO OTHER REPONSE TO PAIN NOTED. VERY WEAK COUGH, BUT NO GAG OR SWALLOW PRESENT. DOPPLER HERBIE RADIAL PULSES, ABSENT DP PULSES, DOPPLER POST TIBIAL PULSES BILATERALLY. LAST THREE TOES ON RT FOOT ARE PURPLE IN COLOR W/ VARIABLE CAP REFILL IN FOOT AND LEG. PATIENT HAS EDEMA TO THE FACE, HERBIE HANDS, AND HERBIE FEET. LUNG SOUNDS COARSE T/O. INTUBATED W/ 7.5 ETT 25CM @ TEETH; ON AC/VC 20/370/5/80% INITIALLY. WHEN PATIENT WAS REPOSITIONED TO HER RIGHT SIDE, SHE DESATTED TO THE MID 50'S DESPITE 100% FIO2; DR. GUZMÁN CALLED TO BEDSIDE AND ORDERED TO INCREASE PEEP TO 10. PATIENT REPOSITIONED SUPINE AND RECOVERED TO 100% SPO2 WITHIN MINUTES OF BEING TURNED TO SUPINE POSTITION. 20 OF LASIX ORDERED AND GIVEN WELL. BOWEL TONES HYPOACTIVE T/O, HAD ONE BM WHILE NURSES WERE AT BEDSIDE THAT WAS LIQUID AND GREEN W/ MUCUS, APPROXIMATELY 100CC IN AMOUNT. TEMP FERREIRA PATENT AND DRAINING YELLOW URINE TO GRAVITY W/ LARGE AMOUNTS OF SEDIMENT. STAT LOCK REPLACED. PETECHIA PRESENT ON HERBIE ARMS FROM HANDS TO ELBOWS, MOTTLING INCREASED FROM YESTERDAY IN HERBIE LEGS AND HERBIE HANDS, KNOW PAST THE KNEES ON HERBIE LEGS AND SPREADING DOWN FOREARM BILATERALLY. STAGE 2 DECUBITOUS ULCER TO SACRUM THAT IS UNCHANGED FROM PREVIOUS ASSESSMENT YESTERDAY AND WAS PRESENT ON ADMISSION; DRESSING CHANGED AND PICTURES PLACED IN CHART. SKIN TEAR TO LT INNER THIGH AND HERBIE INNER THIGH BRUISING, WORSE ON THE RIGHT SOFT TO PALPATION. PICTURES PLACED IN CHART. CENTRAL LINE TO THE RIGHT IJ INFUSING LEVOPHED THAT WAS TITRATED DOWN FROM 20MCG/KG/MIN TO 10MCG/KG/MIN AT THIS TIME, NEOSYNEPHRINE IS OFF, VASOPRESSIN @ 0.04 UNITS/MIN. NS TKO AND NS @ 100ML/HR INF W/ CVP PRESSURE SET UP IN PLACE; MORNING CVP 17. ART LINE TO LT FEMORAL IN PLACE AND FREE OF HEMATOMA AND BLEEDING. DR GUZMÁN, DR. GRANDE, AND ALL AT BEDSIDE THIS AM AND GIVEN FULL UPDATE.
[2021-07-09 10:43] LABS: Hematocrit 31.4 % (33.0-51.0); Hemoglobin 10.7 g/dL (11.5-16.0); Mean Corpuscular HGB 31.6 pg (26.0-34.0); Mean Corpuscular HGB Conc 34.1 g/dL (31.5-36.5); Mean Corpuscular Volume 93 fL (80-100); Mean Platelet Volume 11.2 fL (9.1-12.4); NRBC ABSOLUTE 0.21 K/mm3 (0.00-0.02); NRBC Auto 7.9 /100 WBC (0.0-0.2); Platelet Count 61 K/mm3 (150-400); RDW Coefficient Variation 13.9 % (11.7-14.2); RDW Standard Deviation 46.9 fL (35.1-46.3); Red Blood Cell Count 3.39 M/mm3 (3.80-5.20); White Blood Cell Count 2.67 K/mm3 (4.00-11.30)
--- NOTE | 2021-07-09 14:29 | NUR ---
Met with pt's Radha this morning. He spend the night at the bedside. Dr. Rowe met with Radha yesterday, and explained that pt is in multi-organ failure, along with aspiration pnumonia, metastatic breast cancer with leptomeningeal disease, sepsis and renal failure. She is requiring 100% FI02 on mechanical ventilation at this time, and most recent CT scan shows the intercranial mass has increased in size. During the meeting with Radha, he talked for approx an hour, recounting all the times since pt was initially diagnosed in 2019 when a physician had recommended comfort care. He tells me they continued pursuing treatment, and until now, have managed to "keep her going". He does state he feels some anger towards the medical community for recommending hospice or comfort through the past 2 years. However, as he continues to explain, he does calm and appear to soften some. Their 2 grown daughters came to see pt today, and they both come across as more understanding of the graveness of the situation. Radha, pt's states that pt's life is in God's hands for now, and that God will decide when she goes. I will remain available.
--- NOTE | 2021-07-09 18:03 | NUR ---
SHIFT SUMMARY NO MAJOR CHANGES TO PATIENT CONDITION TODAY. NEUROLOGICALLY NO CHANGES, VERSED REMAINED OFF THROUGHOUT SHIFT. BLOOD PRESSURE REMAINED STABLE, VASOPRESSIN TITRATED OFF, DOROTHEA REMAINED OFF, AND LEVOPHED TITRATED DOWN TO 6MCG/MIN. MAPS IN THE 80'S. HR DECREASED TO 60'S-70'S. MOTTLING IMPROVED AND DP AND PT PULSES PRESENT BY DOPPLER BILATERALLY. LASIX 40MG IV GIVEN FOR EDEMA AND FLUID RETENTION; 1800ML URINE OUT. TEMP REMAINED 97-98F. VHP TF STARTED @ 25ML/HR W/ GOAL RATE OF 55ML/HR AND 30ML Q4H WATER FLUSHES; Q6 CBG ORDERED. 1800 CBG RESULT OF 64 TREATED W/ 1/2 AMP D50 IV, GLUCOSE CORRECTED TO 124. PATIENT HAD ONE BM THAT WAS GREEN, LIQUID, AND MUCOUSY. PROTONIX ORDERS OBTAINED TO BE STARTED TOMORROW MORNING. TEMP FERREIRA STILL PATENT. NO CHANGES TO SKIN CONDITION OTHER THAN IMPROVED MOTTLING MENTIONED EARLIER. PATIENT DESATTED TO THE 50'S W/ REPOSITIONING ON THE LT SIDE; SEE ASSUMED CARE NOTE. 1 UNIT OF PLATELETS INFUSED W/ INCREASE OF PLATELETS FROM 8 TO 61. PATIENT'S DAUGHTERS VISITED TODAY W/ PATIENT'S . VISITOR POLICY REINSTATED W/ AGREEMENT TO ALLOW ALL CHILDREN TO VISIT ON THURSDAY BETWEEN [id number].
--- NOTE | 2021-07-09 20:05 | NUR ---
ASSUMED CARE REPORT RECEIVED FROM DAY SHIFT RN. PT INTUBATED, NO SEDATION INFUSING. PT IS UNRESPONSIVE, DOES NOT FOLLOW COMMANDS, DOES WITHDRAW WITH STIMULI TO LOWER EXTREMITIES AND NOT UPPER EXTREMITIES. VENT SETTINGS AC 20/370/50%/+10. VHP TUBE FEEDING RUNNING AT 25ML/HR. PT IS NSR ON MONITOR HR IN 60S. PT ON LEVOPHED GTT AT 6MCG/MIN. FERREIRA CATHETER IN PLACE. SEE SHIFT ASSESSMENT. WILL CONTINUE TO MONITOR. SAFETY MEASURES IN PLACE.
[2021-07-10 03:44] LABS: BASOPHILS ABSOLUTE AUTO 0.03 K/mm3 (0.00-0.23); BASOPHILS PERCENT AUTO 1 % (0-2); Hematocrit 26.1 % (33.0-51.0); Hemoglobin 9.2 g/dL (11.5-16.0); Mean Corpuscular HGB 31.9 pg (26.0-34.0); Mean Corpuscular HGB Conc 35.2 g/dL (31.5-36.5); Mean Corpuscular Volume 91 fL (80-100); Mean Platelet Volume 12.2 fL (9.1-12.4); NRBC ABSOLUTE 0.09 K/mm3 (0.00-0.02); NRBC Auto 3.8 /100 WBC (0.0-0.2); RDW Coefficient Variation 13.7 % (11.7-14.2); RDW Standard Deviation 45.7 fL (35.1-46.3); Red Blood Cell Count 2.88 M/mm3 (3.80-5.20)
[2021-07-10 03:45] LABS: EOSINOPHILS ABSOLUTE AUTO 0.01 K/mm3 (0.00-0.68); EOSINOPHILS PERCENT AUTO 0 % (0-6); IMMATURE GRAN PERCENT AUTO 0 % (0-1); LYMPHOCYTES ABSOLUTE AUTO 0.31 K/mm3 (0.84-5.20); LYMPHOCYTES PERCENT AUTO 13 % (21-46); MONOCYTES ABSOLUTE AUTO 0.04 K/mm3 (0.16-1.47); MONOCYTES PERCENT AUTO 2 % (4-13); NEUTROPHILS ABSOLUTE AUTO 2.01 K/mm3 (1.96-9.15); NEUTROPHILS PERCENT AUTO 84 % (41-73)
[2021-07-10 03:46] LABS: Platelet Count 27 K/mm3 (150-400)
[2021-07-10 04:03] LABS: Alanine Aminotransfer (ALT/SGP 944 U/L (12-78); Albumin/Globulin Ratio 0.3 (0.8-1.8); Alk Phos 125 U/L (50-136); Anion Gap 9 mmol/L (6-16); Aspartate Aminotrans (AST/SGOT 271 U/L (12-37); Bilirubin, Total 0.5 mg/dL (0.1-1.0); Blood Urea Nitrogen 33 mg/dL (8-24); CO2, Blood 20 mmol/L (21-32); Calcium, Blood 8.2 mg/dL (8.5-10.1); Chloride, Blood 118 mmol/L (98-108); Creatinine, Blood 0.87 mg/dL (0.40-1.00); Globulin, Blood 3.3 g/dL (2.2-4.0); Glomerular Filtration Rate >60 (60-); Glucose, Blood 91 mg/dL (70-99); Magnesium, Blood 2.2 mg/dL (1.6-2.4); Phosphorus, Blood 3.9 mg/dL (2.5-4.9); Potassium, Blood 2.7 mmol/L (3.5-5.5); Sodium, Blood 147 mmol/L (136-145); Total Protein, Blood 4.3 g/dL (6.4-8.2)
[2021-07-10 04:38] LABS: PCO2 Arterial 29.2 mmHg (35-45); PO2 Arterial 164 mmHg (80-100); pH Blood Arterial 7.42 (7.35-7.45)
[2021-07-10 08:25] LABS: Vancomycin, Trough 15.7 ug/mL (5.0-10.0)
--- NOTE | 2021-07-10 10:31 | NUR ---
A discussion relating to the pliability of our visitation protocol was facilitated with the medical authorization specialist. The question was raised as to whether or not it would be permissible, to show flexibility and allow the family increased access to the patient, even though she is not technically on comfort measures only, since her medical condition is extremely grave and she is not likely to improve. My recommendation was that we treat this equivalently to our COVID positive population, whereby we allow ventilator supported patients with a high risk of mortality, and a low rehab potential to have enhanced visitation privileges, similar to those on hospice service. This compassionate lenience will likely inspire trust with the family, create an opportunity for them to directly observe the decline of the patient, give them closure, and better prepare them to say goodbye. Thank you for this consult. Emeka Mcgarry ThD
--- NOTE | 2021-07-10 11:09 | NUR ---
AM NOTE... ASSUMED CARE OF PT AT 0700. THE PT IS INTUBATED WITH VENT SETTINGS AT AC:20/370/10/50% WITH O2 SATS >90%. L/S CLEAR T/O WITH SOME SCATTERED COARSENESS. ET TUBE IS 25 AT THE LIPS. THERE IS A SMALL AMOUNT OF BLEEDING NOTED DURING ORAL CARE, NO OBVIOUS WOUND OR OPEN AREA NOTED IN THE ORAL MUCOSA AT THIS TIME. OG TUBE PRESENT AND RUNNING TUBE FEEDS AT GOAL RATE PER ORDERS. PT IS IN SR IN THE 70'S, ART LINE IN THE LEFT FEMORAL ARTERY. PT IS ON LEVOPHED AT 2MCG TO KEEP MAPS >60. CAP REFILL WAS >4 SECONDS. THE PT'S EXTREMITIES ARE MOTTLED AND COOL TO THE TOUCH WITH PETECHIAEL RASH NOTED TO THE BUE. PULSES ARE FOUND BY DOPPLER ONLY. THE PT HAS TRACE EDEMA TO HER BLE AND BUE. THE PT IS NOTED TO HAVE BRUISES TO HER UPPER THIGHS AND ARMS. TEMP FERREIRA IN PLACE DRAINING TO GRAVITY, THE PT TEMP HAS BEEN 99.1. BT PRESENT AND HYPOACTIVE, ABD IS SOFT AND NONTENDER TO PALP. THE PT'S PUPILS ARE 6MM EQUAL AND SLUGGISH TO REACT. ALSO NOTED THAT THE PT WAS ATTEMPTING TO PULL HER EYELIDS CLOSED DURING THIS ASSESSMENT. NO GAG OR COUGH REFLEX WAS NOTED DURING THIS ASSESSMENT. THE PT HAD SCANT CLEAR TRACHIAL SECRETIONS WITH SUCTION. WILL CONTINUE TO MONITOR.
--- NOTE | 2021-07-10 13:32 | NUR ---
Pt weaned off sedation last evening. She has not woken up since. Bedside RN plans to discuss pt's status with family when they arrive today.
[2021-07-10 16:00] LABS: Hematocrit 25.3 % (33.0-51.0); Hemoglobin 8.8 g/dL (11.5-16.0); Mean Corpuscular HGB 31.9 pg (26.0-34.0); Mean Corpuscular HGB Conc 34.8 g/dL (31.5-36.5); Mean Corpuscular Volume 92 fL (80-100); NRBC ABSOLUTE 0.09 K/mm3 (0.00-0.02); NRBC Auto 3.7 /100 WBC (0.0-0.2); RDW Standard Deviation 47.1 fL (35.1-46.3); Red Blood Cell Count 2.76 M/mm3 (3.80-5.20); White Blood Cell Count 2.41 K/mm3 (4.00-11.30)
[2021-07-10 16:05] LABS: Mean Platelet Volume 13.1 fL (9.1-12.4)
[2021-07-10 16:08] LABS: Platelet Count 17 K/mm3 (150-400)
[2021-07-10 16:27] LABS: Anion Gap 9 mmol/L (6-16); Blood Urea Nitrogen 38 mg/dL (8-24); Bun/Creatinine Ratio 44.7 (12.0-20.0); CO2, Blood 19 mmol/L (21-32); Calcium, Blood 7.9 mg/dL (8.5-10.1); Chloride, Blood 119 mmol/L (98-108); Creatinine, Blood 0.85 mg/dL (0.40-1.00); Glomerular Filtration Rate >60 (60-); Glucose, Blood 135 mg/dL (70-99); Potassium, Blood 3.1 mmol/L (3.5-5.5); Sodium, Blood 147 mmol/L (136-145)
--- NOTE | 2021-07-10 18:03 | NUR ---
SHIFT SUMMARY... NO ACUTE NEGATIVE CHANGES NOTED THIS SHIFT. THE PT'S BLE HAVE WARMED TO THE TOUCH AND ARE PINK, THE PT'S LEFT FOOT IS WARMER THAN THE LEFT AND IS A BRIGHT PINK TO ALMOST RED. THE PT'S VENT SETTINGS WERE CHANGED PER DR. GUZMÁN AND ARE NOW AC: 12/370/10/40% WITH O2 SATS >95%. THERE WAS A NOTED INCREASE IN THE PT'S FACIAL AND BLE EDEMA. WAS NOTIFIED AN ORDER FOR IV LASIX WAS OBTAINED AND GIVEN. THE PT HAS HAD SEVERAL EPISODES OF LIQUID BROWN STOOLS, A RECTAL TUBE WAS PLACED D/T THE INCREASED FREQUENCY AND THE STAGE 2 PRESSURE ULCER ON THE PT'S COCCYX. ALSO NOTED THIS SHIFT WAS SEVERAL WATER BLISTERS FORMING UNDER THE PT'S THIGHS AND DISTAL TO THE ART LINE DRESSING, THE ART LINE DRESSING WAS CHANGED TO A SMALLER DRESSING IN ORDER TO TRY AND REDUCE DAMAGE TO THE BLISTERED AREA. DURING LAST ASSESSMENT THE PT SHOWED SIGNS OF A VERY MINIMAL GAG REFLEX. ASIDE FROM THE IMPROVED GAG REFLEX NO OTHER CHANGES NOTED TO THE PT'S NEURO ASSESSMENT. THE LEVOPHED WAS STOPPED AT 1300, THE PT'S BP HAS BEEN SOFT WITH SBPs IN THE 90'S BUT MAPS HAVE BEEN >65. WILL CONTINUE TO MONITOR UNTIL REPORT IS GIVEN TO ONCOMING RN.
--- NOTE | 2021-07-10 21:17 | NUR ---
ASSUMED CARE REPORT RECEIVED FROM DAY SHIFT RN. PT INUBATED, OFF SEDATION MONITORING NEURO STATUS. SR ON MONITOR, BP STABLE, OFF LEVOPHED GTT. VHP TUBE FEEDING RUNNING. FERREIRA CATHETER AND RECTAL TUBE IN PLACE AND DRAINING. CLAYTON () AT BEDSIDE VISITING WITH PATIENT. SAFETY MEASURES IN PLACE. WILL CONTINUE TO MONITOR. SEE SHIFT ASSESSMENT.
[2021-07-11 04:57] LABS: BASOPHILS ABSOLUTE AUTO 0.02 K/mm3 (0.00-0.23); BASOPHILS PERCENT AUTO 1 % (0-2); Hematocrit 26.1 % (33.0-51.0); Hemoglobin 9.3 g/dL (11.5-16.0); LYMPHOCYTES ABSOLUTE AUTO 0.36 K/mm3 (0.84-5.20); LYMPHOCYTES PERCENT AUTO 12 % (21-46); MONOCYTES ABSOLUTE AUTO 0.18 K/mm3 (0.16-1.47); MONOCYTES PERCENT AUTO 6 % (4-13); Mean Corpuscular HGB Conc 35.6 g/dL (31.5-36.5); Mean Corpuscular Volume 90 fL (80-100); NRBC ABSOLUTE 0.09 K/mm3 (0.00-0.02); NRBC Auto 2.9 /100 WBC (0.0-0.2); RDW Coefficient Variation 14.3 % (11.7-14.2); RDW Standard Deviation 46.5 fL (35.1-46.3); Red Blood Cell Count 2.91 M/mm3 (3.80-5.20); White Blood Cell Count 3.09 K/mm3 (4.00-11.30)
[2021-07-11 05:07] LABS: EOSINOPHILS PERCENT AUTO 0 % (0-6); IMMATURE GRAN ABSOLUTE AUTO 0.16 K/mm3 (0.00-0.10); IMMATURE GRAN PERCENT AUTO 5 % (0-1); NEUTROPHILS ABSOLUTE AUTO 2.37 K/mm3 (1.96-9.15); NEUTROPHILS PERCENT AUTO 77 % (41-73); Platelet Count 12 K/mm3 (150-400)
[2021-07-11 05:21] LABS: BAND PERCENT MAN 4 % (0-8); BASOPHILS PERCENT MAN 0 % (0-2); EOSINOPHILS PERCENT MAN 0 % (0-6); LYMPHOCYTES ABSOLUTE MAN 0.37 K/mm3 (0.84-5.20); LYMPHOCYTES PERCENT MAN 12 % (21-46); MONOCYTES ABSOLUTE MAN 0.06 K/mm3 (0.16-1.47); MONOCYTES PERCENT MAN 2 % (4-13); MYELOCYTE ABSOLUTE MAN 0.03 K/mm3 (0.00-0.00); MYELOCYTE PERCENT MAN 1 % (0-0); NEUTROPHILS ABSOLUTE MAN 2.62 K/mm3 (1.96-9.15); SEG NEUTROPHILS PERCENT MAN 81 % (41-73); TOTAL CELLS COUNTED 100
[2021-07-11 05:22] LABS: Anion Gap 8 mmol/L (6-16); Blood Urea Nitrogen 49 mg/dL (8-24); Bun/Creatinine Ratio 62.9 (12.0-20.0); CO2, Blood 17 mmol/L (21-32); Calcium, Blood 8.2 mg/dL (8.5-10.1); Chloride, Blood 123 mmol/L (98-108); Creatinine, Blood 0.78 mg/dL (0.40-1.00); Glomerular Filtration Rate >60 (60-); Glucose, Blood 174 mg/dL (70-99); Potassium, Blood 3.8 mmol/L (3.5-5.5); Sodium, Blood 148 mmol/L (136-145)
--- NOTE | 2021-07-11 06:18 | NUR ---
SHIFT SUMMARY NO CHANGE IN PT MENTAL STATUS. DOES NOT FOLLOW COMMANDS, TRACK, DOES OPEN EYES AT TIMES BUT DOES NOT MAKE EYE CONTACT. PT OFF SEDATION, CONTINUING TO MONITOR NEURO STATUS. VENT SETTINGS UNCHANGED. AC 12/370/40%/+10. VHP TUBE FEEDING RUNNING CONTINOUSLY. PT TOLERATING WELL. AT 0400 FOR REASSESSMENT, LEFT RADIAL PULSE ABSENT VIA DOPPLER. LEFT BRACHIAL PULSE DOPPERABLE. CHARGE NURSE ANMOL INFORMED. AT 0600 REASESSED, LEFT RADIAL PULSE REMAINS UNDOPPERABLE. LEFT BRACHIAL FOUND. RIGHT RADIAL PULSE FOUND VIA DOPPER. LEFT HAND EDEMATOUS, NON PITTING EDEMA NOTED AND LEFT FINGERS ARE COLD. PT NSR ON MONITOR. BP STABLE. NO HYPOTENSION ON THIS SHIFT. ABIGAIL() WAS AT BEDSIDE. UPDATED ON PT'S POC AND HER CONDITION. SAFETY MEASURES IN PLACE. REPORT TO BE GIVEN TO DAY SHIFT RN.
--- NOTE | 2021-07-11 11:53 | NUR ---
REASSESSMENT PT CONTINUES TO BE UNRESPONSIVE. ONLY MOVEMENT NOTED IS WHEN THE BOTTOM OF HER FOOT IS BRUSHED, HER FOOT PULLS AWAY SLIGHTLY, R MORE THAN L. PUPILS ARE ABOUT 5MM, SLUGGISH, NYSTAGMUS. VERY WEAK COUGH WTIH SUCTIONING, NO GAG NOTED. ORAL SECRETIONS ARE BLOODY, BUT ETT SUCTIONING IS NOT. LUNGS ARE CLEAR. RT STARTED CPT. SR, BP STABLE, REMAINS OFF PRESSORS. DISCUSSED REMOVING ART LINE WTIH DR. GUZMÁN AND WILL WAIT FOR AFTERNOON PLATELET COUNT. TOLERATING TUBE FEED WTIH LESS THAN 10ML RESIDUAL. FERREIRA DRAINING CL YELLOW URINE. EXTREMITIES REMAIN COOL, BUT PULSES PRESENT WITH DOPPLER. CONTINUING TO MONITOR.
[2021-07-11 15:22] LABS: Hemoglobin 8.7 g/dL (11.5-16.0); Mean Corpuscular HGB 31.9 pg (26.0-34.0); Mean Corpuscular HGB Conc 34.8 g/dL (31.5-36.5); Mean Corpuscular Volume 92 fL (80-100); NRBC ABSOLUTE 0.08 K/mm3 (0.00-0.02); NRBC Auto 2.5 /100 WBC (0.0-0.2); RDW Coefficient Variation 14.5 % (11.7-14.2); RDW Standard Deviation 48.3 fL (35.1-46.3); Red Blood Cell Count 2.73 M/mm3 (3.80-5.20); White Blood Cell Count 3.22 K/mm3 (4.00-11.30)
[2021-07-11 15:42] LABS: Platelet Count 10 K/mm3 (150-400)
--- NOTE | 2021-07-11 18:05 | NUR ---
SHIFT SUMMARY PT REMAINS INTUBATED AND UNRESPONSIVE OFF OF SEDATION. THIS EVENING SHE HAS SOME VERY SLIGHT MOVEMENTS IN HER FEET WITHOUT STIMULATION, BUT NO OTHER MOVEMENTS NOTED. HER PUPILS ARE ABOUT 4MM, SLUGGISH, STILL HAS NYSTAGMUS. SR, BP STABLE. ABLE TO GET READING OFF OF ARM CUFF SO DR. GUZMÁN OK'D FOR ART LINE TO BE DC'D AFTER 1 UNIT OF PLATELETS WERE GIVEN. ART LINE DC'D WITHOUT COMPLICATION. SITE REMAINS SOFT, WITHOUT HEMATOMA. RECTAL TUBE DRAINING SM AMT OF LIQUID STOOL TODAY. FERREIRA WITH CL YELLOW URINE. PT'S VISITED THIS AFTERNOON AND WAS UPDATEDBY NURSING STAFF AND DR. GUZMÁN. PT'S DAUGHTERS ALSO VISITED THIS EVENING.
--- NOTE | 2021-07-11 19:25 | NUR ---
ASSESSMENT/ASSUMED CARE PT INTUBATED AND [facility]. NO SEDATION. PT TRIES TO OPEN EYES TO VERBAL STIMULI. SLIGHT MOVEMENT TO LEFT UPPER EXT NOTED. SLIGHT MOVEMENT TO FEET TO PAINFUL STIMULI. NO FOLLOWING INSTRUCTIONS. VENT SETTINGS AC/VC 12/370/10/40%. ET TUBE AT 24 CM AT TEETH. BLOODY ORAL FLUID NOTED. HEART RATE REGULAR, BP STABLE. EDEMA NOTED TO EXT. PULSED PER DOPPLER. PT REPOSITIONED TO LEFT WITH HOB UP. BT+ ABD SOFT. OG WITH TUBE FEED VITAL HP AT GOAL RATE 55 ML/HR, WATER 30 ML Q4HR. RESIDUAL ZERO. FERREIRA CATH PATENT DRAINING YELLOW URINE. RECTAL TUBE WITH BROWN LIQUID STOOL IN TUBE. REPOSITIONED TUBE. CENTRAL LINE TO RIGHT IJ WITH DRSG INTACT, SITE CLEAR. NS AT 10 ML/HR WITH ANTIBOTIC. AT BEDSIDE.
--- NOTE | 2021-07-11 21:44 | NUR ---
TEMP TEMP UP TO 100.2, BLANKET REMOVED AND MED WITH TYLENOL.
[2021-07-12 03:52] LABS: Hematocrit 22.7 % (33.0-51.0); Hemoglobin 7.8 g/dL (11.5-16.0); Mean Corpuscular HGB 31.5 pg (26.0-34.0); Mean Corpuscular HGB Conc 34.4 g/dL (31.5-36.5); Mean Corpuscular Volume 92 fL (80-100); Mean Platelet Volume 12.2 fL (9.1-12.4); NRBC ABSOLUTE 0.09 K/mm3 (0.00-0.02); NRBC Auto 2.6 /100 WBC (0.0-0.2); RDW Coefficient Variation 14.2 % (11.7-14.2); RDW Standard Deviation 47.1 fL (35.1-46.3); Red Blood Cell Count 2.48 M/mm3 (3.80-5.20); White Blood Cell Count 3.46 K/mm3 (4.00-11.30)
[2021-07-12 04:05] LABS: Platelet Count 27 K/mm3 (150-400)
[2021-07-12 04:10] LABS: Anion Gap 7 mmol/L (6-16); Blood Urea Nitrogen 56 mg/dL (8-24); Bun/Creatinine Ratio 77.7 (12.0-20.0); CO2, Blood 24 mmol/L (21-32); Calcium, Blood 8.1 mg/dL (8.5-10.1); Chloride, Blood 122 mmol/L (98-108); Creatinine, Blood 0.72 mg/dL (0.40-1.00); Glomerular Filtration Rate >60 (60-); Glucose, Blood 155 mg/dL (70-99); Magnesium, Blood 1.6 mg/dL (1.6-2.4); Phosphorus, Blood 1.9 mg/dL (2.5-4.9); Potassium, Blood 2.6 mmol/L (3.5-5.5); Sodium, Blood 153 mmol/L (136-145)
[2021-07-12 05:30] LABS: BAND PERCENT MAN 27 % (0-8); BASOPHILS PERCENT MAN 0 % (0-2); EOSINOPHILS PERCENT MAN 0 % (0-6); LYMPHOCYTES ABSOLUTE MAN 0.44 K/mm3 (0.84-5.20); LYMPHOCYTES PERCENT MAN 13 % (21-46); METAMYELOCYTE ABSOLUTE MAN 0.06 K/mm3 (0.00-0.00); METAMYELOCYTE PERCENT MAN 2 % (0-0); MONOCYTES PERCENT MAN 3 % (4-13); NEUTROPHILS ABSOLUTE MAN 2.83 K/mm3 (1.96-9.15); SEG NEUTROPHILS PERCENT MAN 55 % (41-73); TOTAL CELLS COUNTED 100
--- NOTE | 2021-07-12 05:37 | NUR ---
SHIFT SUMMARY PT CONT INTUBATED AND ON VENT. NO VENT CHANGES EXCEPT FIO2 DOWN TO 35% FROM 40%. NO NEURO CHANGES DURING THE NIGHT. VSS. REPLACE MG AND PHOS THIS AM. PT TURNED SIDE TO SIDE TO KEEP OFF COCCYX. LEFT FEMORAL SITE FROM [facility] CD&I. AREA SOFT TO PALPATION. NO CHANGES DURING THE NIGHT. REPORT TO ON COMING NURSE
[2021-07-12 12:53] LABS: Anion Gap 7 mmol/L (6-16); Blood Urea Nitrogen 51 mg/dL (8-24); Bun/Creatinine Ratio 79.7 (12.0-20.0); CO2, Blood 26 mmol/L (21-32); Chloride, Blood 118 mmol/L (98-108); Creatinine, Blood 0.64 mg/dL (0.40-1.00); Glomerular Filtration Rate >60 (60-); Glucose, Blood 166 mg/dL (70-99); Phosphorus, Blood 3.4 mg/dL (2.5-4.9); Potassium, Blood 2.8 mmol/L (3.5-5.5); Sodium, Blood 151 mmol/L (136-145)
--- NOTE | 2021-07-12 13:07 | NUR ---
0800 Pt recieved on bed intubated to vent non-repsonsive to verbal stmuli or tactile stimuli. Pt has Left IJ infuisng K phos, dressing intact. Myers cath present drainiing adequate output. Rectal tube also noted draining to gravity. PT repositioned and meds given. 1200 Pt reassessed; no change of pt status. Pt repositioned and oral care done. Pt family @ bediside updated on status of pt and plan of care. labs collected; will continue to monitor pt cloesely.
--- NOTE | 2021-07-12 17:18 | NUR ---
Pt reassessed no changed in pt status. Dr. Moya seen and asssessed pt; spoke to pt family regarding advance directives. Pt repositoned and meds given. Will monitor pt until remainder of shift.
--- NOTE | 2021-07-12 19:50 | NUR ---
ASSUMING PT CARE: PT IS INTUBATED. VENT: , 10/%. NO SEDATION. PT UNABLE TO FOLLOW COMMANDS, WINCES SLIGHTLY W/ NOX STIM. FAMILY IS @ BEDSIDE FINISHING UP THEIR VISIT. THEY REQUEST TO EACH SPEND A 5min ONE-ON-ONE TIME w/ THE PT SHE WAS NOT MADE COMFORT CARE TODAY & THEY MUST ADHERE TO DEFAULT VISITING HOURS TOMORROW. REQUEST GRANTED, DISCUSSED W/ RESISTANCE WELDER. WILL COMPLETE FULL ASSESSMENT ONCE FAMILY GOES HOME.
--- NOTE | 2021-07-13 00:30 | NUR ---
PT CONTINUES TO REST. VENT SETTINGS UNCHANGED. SINUS LILIYA w/ HR 50s. GOOD OUTPUT FROM RECTAL TUBE ONCE REPOSITIONED. PT NOTED TO HAVE SM LAC TO THE R CORNER OF HER MOUTH, APPEARS TO BE FROM DRYNESS. SM AMT OF BLEEDING. LOTION & MOUTH MOISTURIZER APPLIED.
--- NOTE | 2021-07-13 04:00 | NUR ---
PT CONTINUES TO BE UNRESPONSIVE; SOME SLIGHT GAG w/ ORAL CARE. WHEN LAYED FLAT, PT DOES FLUTTER EYES BUT DOES NOT OPEN THEM. +ROTARY NYSTAGMUS W/ PUPILS EXPOSED. PUPILS 5mm & REACTIVE. NO SECRETIONS FROM ETT. SINUS LILIYA, HR 45-50.
[2021-07-13 04:03] LABS: BASOPHILS ABSOLUTE AUTO 0.04 K/mm3 (0.00-0.23); BASOPHILS PERCENT AUTO 1 % (0-2); Hematocrit 23.4 % (33.0-51.0); Hemoglobin 8.1 g/dL (11.5-16.0); Mean Corpuscular HGB 31.8 pg (26.0-34.0); Mean Corpuscular HGB Conc 34.6 g/dL (31.5-36.5); Mean Corpuscular Volume 92 fL (80-100); Mean Platelet Volume 12.9 fL (9.1-12.4); NRBC ABSOLUTE 0.17 K/mm3 (0.00-0.02); NRBC Auto 3.2 /100 WBC (0.0-0.2); RDW Coefficient Variation 14.2 % (11.7-14.2); Red Blood Cell Count 2.55 M/mm3 (3.80-5.20); White Blood Cell Count 5.32 K/mm3 (4.00-11.30)
[2021-07-13 04:05] LABS: EOSINOPHILS ABSOLUTE AUTO 0.01 K/mm3 (0.00-0.68); EOSINOPHILS PERCENT AUTO 0 % (0-6); IMMATURE GRAN PERCENT AUTO 8 % (0-1); LYMPHOCYTES ABSOLUTE AUTO 0.69 K/mm3 (0.84-5.20); LYMPHOCYTES PERCENT AUTO 13 % (21-46); MONOCYTES ABSOLUTE AUTO 0.18 K/mm3 (0.16-1.47); MONOCYTES PERCENT AUTO 3 % (4-13); NEUTROPHILS PERCENT AUTO 75 % (41-73)
[2021-07-13 04:06] LABS: Platelet Count 18 K/mm3 (150-400)
[2021-07-13 04:21] LABS: Magnesium, Blood 1.8 mg/dL (1.6-2.4)
[2021-07-13 04:25] LABS: Albumin, Blood 1.2 g/dL (3.4-5.0); Anion Gap 7 mmol/L (6-16); Blood Urea Nitrogen 51 mg/dL (8-24); Bun/Creatinine Ratio 85.3 (12.0-20.0); CO2, Blood 29 mmol/L (21-32); Calcium, Blood 8.3 mg/dL (8.5-10.1); Chloride, Blood 117 mmol/L (98-108); Glomerular Filtration Rate >60 (60-); Glucose, Blood 152 mg/dL (70-99); Phosphorus, Blood 2.6 mg/dL (2.5-4.9); Potassium, Blood 2.4 mmol/L (3.5-5.5); Sodium, Blood 153 mmol/L (136-145)
[2021-07-13 05:28] LABS: BAND PERCENT MAN 9 % (0-8); BASOPHILS PERCENT MAN 0 % (0-2); EOSINOPHILS PERCENT MAN 0 % (0-6); LYMPHOCYTES ABSOLUTE MAN 0.85 K/mm3 (0.84-5.20); LYMPHOCYTES PERCENT MAN 16 % (21-46); MONOCYTES ABSOLUTE MAN 0.05 K/mm3 (0.16-1.47); MONOCYTES PERCENT MAN 1 % (4-13); NEUTROPHILS ABSOLUTE MAN 4.41 K/mm3 (1.96-9.15); SEG NEUTROPHILS PERCENT MAN 74 % (41-73); TOTAL CELLS COUNTED 100
--- NOTE | 2021-07-13 06:43 | NUR ---
SHIFT SUMMARY: PT REMAINS INTUBATED W/ NO VENT CHANGES. LOC UNCHANGED T/O SHIFT. UNRESPONSIVE, NO PURPOSEFUL MOVEMENT OBSERVED, SLIGHT WITHDRAWAL FROM NOX STIM & W/ ORAL CARE. +GAG +SWALLOW. PERRLA. +ROTARY NYSTAGMUS. 850ml FROM RECTAL TUBE. 1,600ml LIGHT YELLOW UO. AM LABS AGAIN SHOWED SUBOPTIMAL K+, REPLACEMENT ORDERED PER ELECTROLYTE PROTOCOL. 100.3 TMAX, RESOLVED TO 99.5 w/ COOL BATH & REMOVING SCDs. NO ACUTE CHANGES.
[2021-07-13 13:43] LABS: Albumin, Blood 1.3 g/dL (3.4-5.0); Albumin/Globulin Ratio 0.4 (0.8-1.8); Bilirubin, Direct 0.1 mg/dL (0.0-0.3); Bilirubin, Indirect 0.3 mg/dL (0.1-0.7); Bilirubin, Total 0.4 mg/dL (0.1-1.0); Globulin, Blood 3.6 g/dL (2.2-4.0); Total Protein, Blood 4.9 g/dL (6.4-8.2)
[2021-07-13 17:09] LABS: Hematocrit 25.4 % (33.0-51.0); Hemoglobin 8.8 g/dL (11.5-16.0); Mean Corpuscular HGB 31.9 pg (26.0-34.0); Mean Corpuscular HGB Conc 34.6 g/dL (31.5-36.5); Mean Corpuscular Volume 92 fL (80-100); NRBC ABSOLUTE 0.24 K/mm3 (0.00-0.02); NRBC Auto 3.5 /100 WBC (0.0-0.2); RDW Coefficient Variation 14.1 % (11.7-14.2); RDW Standard Deviation 47.2 fL (35.1-46.3); Red Blood Cell Count 2.76 M/mm3 (3.80-5.20); White Blood Cell Count 6.91 K/mm3 (4.00-11.30)
[2021-07-13 17:16] LABS: Platelet Count 20 K/mm3 (150-400)
[2021-07-13 17:17] LABS: Albumin, Blood 1.4 g/dL (3.4-5.0); Anion Gap 7 mmol/L (6-16); Blood Urea Nitrogen 40 mg/dL (8-24); Bun/Creatinine Ratio 75.3 (12.0-20.0); CO2, Blood 30 mmol/L (21-32); Calcium, Blood 8.1 mg/dL (8.5-10.1); Chloride, Blood 110 mmol/L (98-108); Creatinine, Blood 0.53 mg/dL (0.40-1.00); Glomerular Filtration Rate >60 (60-); Glucose, Blood 197 mg/dL (70-99); Potassium, Blood 2.9 mmol/L (3.5-5.5); Sodium, Blood 147 mmol/L (136-145)
[2021-07-13 17:33] LABS: BAND PERCENT MAN 9 % (0-8); BASOPHILS PERCENT MAN 0 % (0-2); EOSINOPHILS PERCENT MAN 0 % (0-6); LYMPHOCYTES ABSOLUTE MAN 1.17 K/mm3 (0.84-5.20); LYMPHOCYTES PERCENT MAN 17 % (21-46); METAMYELOCYTE ABSOLUTE MAN 0.13 K/mm3 (0.00-0.00); METAMYELOCYTE PERCENT MAN 2 % (0-0); MONOCYTES ABSOLUTE MAN 0.06 K/mm3 (0.16-1.47); MONOCYTES PERCENT MAN 1 % (4-13); NEUTROPHILS ABSOLUTE MAN 5.52 K/mm3 (1.96-9.15); SEG NEUTROPHILS PERCENT MAN 71 % (41-73); TOTAL CELLS COUNTED 100
--- NOTE | 2021-07-13 18:37 | NUR ---
0800 Pt recieved on bed intubated on bed reactive to tactile stimuli with minimal unpurposeful movement. Pt has rectal and pulliam drainig output. 1000 Pt family updated on status of pt; pt repositioned and meds given. \ 1200 Pt reassesed; no significant change in pt status. [address] of brain completed; pt tolerated well. Family @ bedside; updated on plan of care and status of pt. Pt afebrile, bedbath done and pericare completed. Pt repositioned and meds given. Pt afebrile, VSS and in no acute distress. Will monitor pt until remainder of shift.
--- NOTE | 2021-07-13 19:30 | NUR ---
ASSUMING PT CARE: PT INTUBATED. VENT: AC/VC 12/370, 5/35%. NO SEDATION. PT FLUTTERS EYES @ TIMES, RANDOM SM MOVEMENTS OF EXTENSION & FLEXATION FROM EXTREMs, HOWEVER NO MOVEMENT UPON COMMAND OR INTENTIONAL MOVEMENT OBSERVED. PERRLA. +ROTATIONAL NYSTAGMUS. +WEAK COUGH AGAINST ETT WHEN LAYED FLAT. +GAG +SWALLOW. MOD AMNT OF THICK, BROWN ORAL SECRETIONS. SCANT SECRETIONS FROM ETT. TF & Q4hr FLUSHES CHANGED TO ORDERED AMNTS OF 55 & 200ml RESPECTIVELY. WILL CONTINUE TO MONITOR & REPORT APPROPRIATE.
--- NOTE | 2021-07-14 | NUR ---
PT REMAINS INTUBATED & W/OUT SEDATION. NO ADVANCES IN MENTATION OR PURPOSEFUL MOVEMENT. VENT SETTINGS UNCHANGED.
[2021-07-14 03:58] LABS: Hematocrit 23.9 % (33.0-51.0); Hemoglobin 8.2 g/dL (11.5-16.0); Mean Corpuscular HGB 31.8 pg (26.0-34.0); Mean Corpuscular HGB Conc 34.3 g/dL (31.5-36.5); Mean Corpuscular Volume 93 fL (80-100); NRBC ABSOLUTE 0.39 K/mm3 (0.00-0.02); NRBC Auto 5.1 /100 WBC (0.0-0.2); RDW Coefficient Variation 14.2 % (11.7-14.2); Red Blood Cell Count 2.58 M/mm3 (3.80-5.20); White Blood Cell Count 7.71 K/mm3 (4.00-11.30)
[2021-07-14 04:02] LABS: Platelet Count 21 K/mm3 (150-400)
[2021-07-14 04:13] LABS: Albumin, Blood 1.4 g/dL (3.4-5.0); Anion Gap 7 mmol/L (6-16); Blood Urea Nitrogen 35 mg/dL (8-24); Bun/Creatinine Ratio 87.1 (12.0-20.0); CO2, Blood 31 mmol/L (21-32); Calcium, Blood 8.4 mg/dL (8.5-10.1); Chloride, Blood 106 mmol/L (98-108); Glomerular Filtration Rate >60 (60-); Glucose, Blood 195 mg/dL (70-99); Potassium, Blood 3.8 mmol/L (3.5-5.5); Sodium, Blood 144 mmol/L (136-145)
[2021-07-14 05:24] LABS: BAND PERCENT MAN 12 % (0-8); BASOPHILS PERCENT MAN 0 % (0-2); EOSINOPHILS ABSOLUTE MAN 0.07 K/mm3 (0.00-0.68); EOSINOPHILS PERCENT MAN 1 % (0-6); LYMPHOCYTES ABSOLUTE MAN 0.77 K/mm3 (0.84-5.20); LYMPHOCYTES PERCENT MAN 10 % (21-46); MONOCYTES PERCENT MAN 0 % (4-13); MYELOCYTE ABSOLUTE MAN 0.07 K/mm3 (0.00-0.00); MYELOCYTE PERCENT MAN 1 % (0-0); NEUTROPHILS ABSOLUTE MAN 6.78 K/mm3 (1.96-9.15); SEG NEUTROPHILS PERCENT MAN 76 % (41-73); TOTAL CELLS COUNTED 100
--- NOTE | 2021-07-14 06:30 | NUR ---
SHIFT SUMMARY: PT REMAINS INTUBATED & W/OUT SEDATION. NO POSITIVE PROGRESSION IN MENTATION OR LOC. NO INTENTIONAL MOVEMENT. SOME INTERMITTENT EXTENSION & FLEXATION OF THE FEET, SLIGHT WITHDRAWAL FROM PAIN. +GAG, +SWALLOW, +COUGH w/ORAL CARE. MINIMAL OUTPUT FROM RECTAL TUBE, 50ml. GOOD URINE OUTPUT, 1600ml. NO NEW CHANGES TO PLAN OF CARE.
--- NOTE | 2021-07-14 12:07 | NUR ---
0730 Pt recieved on bed intubated on vent responsive to tactile stimuli; but with no purposeful movements. Pt assessed, pt has pulliam and rectal tube draining adequate output. NG tube present with feedings of Vital HP @ goal tolerating well. 1000 Dr. Moya seen and assessed pt. No orders recieved; Pt repositioned. Pt family updated on status of pt by Dr. Moya. 1200 Pt reassesed, no significant change in pt status. Pericare done and pt repositioned. Pt afebrile, VSS and in no acute distress. Will continue to montitor pt closely.
--- NOTE | 2021-07-14 18:31 | NUR ---
0800 Pt recieved on bed intubated to vent reactive to tactile stimuli but with no purposeful movement. Pt assessment done. Pt has R-IJ cvc dressing intact. Myers and rectal present draining adequate output. 1200 Pt reassessed, no significant change in pt status. Pt family updated via phone by Dr. Moya. 1600 Pt repositioned and meds given. Pericare done; pt afebrile, VSS and in no acute distress. Family @ bedside. Will monitor pt until remainder of shift.
--- NOTE | 2021-07-14 20:08 | NUR ---
ASSUMING PT CARE: PT INTUBATED, VENT: AC/VC 12/370, 5/50%. UNABLE TO FOLLOW COMMANDS. WHEN STIMULATED, PT SLIGHTLY OPENS EYES; STRONG COUGH, GAG, SWALLOW, & CORNEAL REFLEX. NEG BABINSKI. SPO2 >95%, LS COARSE T/O. SCANT KINCAID SECRETIONS FROM ETT. COPIOUS AMTs OF THICK, TENACIOUS SECRETIONS SUCTIONED FROM MOUTH. THOROUGH ORAL CARE PERFORMED. DRY AREAS TO THE CORNERS OF THE MOUTH BLEED W/ ORAL CARE; CLEANSED & MOISTURIZER APPLIED. SEE INITIAL SHIFT DOCUMENTATION FOR FULL ASSESSMENT.
--- NOTE | 2021-07-14 23:57 | NUR ---
PT REPOSITIONED FOR COMFORT. RECTAL TUBE FOUND TO BE DISLODGED. SANAM-CARE & CATH CARE GIVEN, RECTAL TUBE DEFLATED & RESEATED. PT IS NOW OPENING HER EYES ABOUT SNF TO HER NAME & TO STIM. NO NYSTAGMUS OBSERVED, APPEARS TO BE TRACKING SOMEWHAT. PERRLA. +CORNEAL REFLEX. PT BLINKING @ REGULAR & CONSISTENT INTERVALS; EYE CARE PROVIDED. PT ALSO INTERMITTENTLY TAPPING & SHAKING FEET. NO MOVEMENT UPON COMMAND.
--- NOTE | 2021-07-15 04:00 | NUR ---
NO CHANGES SINCE LAST ENTRY. PT CONTINUES INTUBATED & W/OUT SEDATION. UNABLE TO FOLLOW COMMANDS BUT DOES HAVE INTERMITTENT MOVEMENT OF THE R ARM & LEG. IT DOES NOT APPEAR RYTHMIC AND/OR SEIZURE-LIKE. SHE CONTINUES TO OPEN HER EYES SLIGHTLY, BUT DOES NOT APPEAR TO TRACK.
[2021-07-15 04:01] LABS: Hematocrit 25.6 % (33.0-51.0); Hemoglobin 8.6 g/dL (11.5-16.0); Mean Corpuscular HGB 31.5 pg (26.0-34.0); Mean Corpuscular HGB Conc 33.6 g/dL (31.5-36.5); Mean Corpuscular Volume 94 fL (80-100); NRBC ABSOLUTE 0.63 K/mm3 (0.00-0.02); NRBC Auto 6.7 /100 WBC (0.0-0.2); RDW Coefficient Variation 14.3 % (11.7-14.2); RDW Standard Deviation 48.2 fL (35.1-46.3); Red Blood Cell Count 2.73 M/mm3 (3.80-5.20); White Blood Cell Count 9.43 K/mm3 (4.00-11.30)
[2021-07-15 04:08] LABS: Platelet Count 21 K/mm3 (150-400)
[2021-07-15 04:13] LABS: Albumin, Blood 1.5 g/dL (3.4-5.0); Anion Gap 4 mmol/L (6-16); Blood Urea Nitrogen 29 mg/dL (8-24); Bun/Creatinine Ratio 70.7 (12.0-20.0); CO2, Blood 32 mmol/L (21-32); Calcium, Blood 8.7 mg/dL (8.5-10.1); Chloride, Blood 106 mmol/L (98-108); Creatinine, Blood 0.41 mg/dL (0.40-1.00); Glomerular Filtration Rate >60 (60-); Glucose, Blood 148 mg/dL (70-99); Phosphorus, Blood 2.1 mg/dL (2.5-4.9); Potassium, Blood 4.5 mmol/L (3.5-5.5); Sodium, Blood 142 mmol/L (136-145)
[2021-07-15 05:52] LABS: BASOPHILS PERCENT MAN 0 % (0-2); MONOCYTES ABSOLUTE MAN 0.28 K/mm3 (0.16-1.47); MONOCYTES PERCENT MAN 3 % (4-13); TOTAL CELLS COUNTED 100
[2021-07-15 05:58] LABS: BAND PERCENT MAN 7 % (0-8); EOSINOPHILS PERCENT MAN 0 % (0-6); LYMPHOCYTES ABSOLUTE MAN 1.03 K/mm3 (0.84-5.20); LYMPHOCYTES PERCENT MAN 11 % (21-46); METAMYELOCYTE ABSOLUTE MAN 0.09 K/mm3 (0.00-0.00); METAMYELOCYTE PERCENT MAN 1 % (0-0); NEUTROPHILS ABSOLUTE MAN 8.01 K/mm3 (1.96-9.15); SEG NEUTROPHILS PERCENT MAN 78 % (41-73)
--- NOTE | 2021-07-15 06:21 | NUR ---
SHIFT SUMMARY: PT REMAINS INTUBATED, NO CHANGES TO VENT SETTINGS. SEE PREVIOUS NOTATION FOR NEURO STATUS. MOD AMNT OF THIN/THICK SECRETIONS FROM ETT. COPIOUS THICK/TENACIOUS ORAL SECRETIONS, PT OFTEN GAGS & COUGHS AGAINST ETT D/T SECRETIONS. 750ml RECTAL TUBE OUTPUT. 1350ml URINE OUTPUT. PLAN OF CARE CONTNIUES w/OUT CHANGE. PHOS TO BE REPLACED THIS AM.
--- NOTE | 2021-07-15 18:40 | NUR ---
Pt recieved on bed intubated reactive to tactile stimuli. Pt opens eyes during oral care or physical stimulation but doesn't follow commands. Rectal tube and folay noted draining adequate output. Dr. Hayes seen and assessed pt. Pt place do Spomtaneous mode on vent; toletaring well. 1500 Pt family @ bedside; updated on status of pt and plan of care. EEG pending. 1800 Pt repoistion and meds given. Pt afebrile, VSS and in no acute distress. Will montior pt until remainder of shift.
--- NOTE | 2021-07-15 20:48 | NUR ---
ASSUMING PT CARE: PT INTUBATED. VENT: SPONTANEOUS PS 12, 5/40%. TVs 400s. SPO2 96%. PLACED ON SPONTANEOUS @ APPROX 1200 TODAY, PT CONTINUES TO DO WELL. OPENS EYES TO STIM, SOMEWHAT TRACKS. PERRLA. BLINKS @ CONSISTENT INTERVALS, EYE CARE PROVIDED. NO PURPOSEFUL MOVEMENT OR MOVEMENT UPON COMMAND. PT BEGINNING TO DISPLAY MORE OBVIOUS SIGNS OF SEZIRE-LIKE ACTIVITY COMPARED TO YESTERDAY w/ RHYTHMIC JERKING OF R ARM LASTING APPROX 5min & CONSTANT FINE RESTING TREMOR TO L ARM. KEPPRA SCHEDULED & GIVEN. EEG PENDING. SEE INITIAL SHIFT DOCUMENTATION FOR FULL ASSESSMENT.
--- NOTE | 2021-07-15 22:46 | NUR ---
UPDATE: VENT CHANGES. TVs TRENDING DOWNWARD, CONSISTENTLY IN THE 200s. RT CALLED & PT PLACED BACK TO AC AV , 5/40%. SPO2 >90%, PT TOLERATING WELL.
[2021-07-16 03:55] LABS: BASOPHILS ABSOLUTE AUTO 0.04 K/mm3 (0.00-0.23); BASOPHILS PERCENT AUTO 0 % (0-2); Hematocrit 27.5 % (33.0-51.0); Hemoglobin 9.2 g/dL (11.5-16.0); Mean Corpuscular HGB 31.6 pg (26.0-34.0); Mean Corpuscular HGB Conc 33.5 g/dL (31.5-36.5); Mean Corpuscular Volume 95 fL (80-100); NRBC ABSOLUTE 0.78 K/mm3 (0.00-0.02); NRBC Auto 7.7 /100 WBC (0.0-0.2); RDW Coefficient Variation 14.4 % (11.7-14.2); RDW Standard Deviation 48.8 fL (35.1-46.3); Red Blood Cell Count 2.91 M/mm3 (3.80-5.20); White Blood Cell Count 10.12 K/mm3 (4.00-11.30)
--- NOTE | 2021-07-16 04:00 | NUR ---
NO ACUTE CHANGES SINCE LAST ENTRY. PT DOING WELL ON AC; @ TIMES COUGHS AGAINST ETT OTHERWISE TOLERATING WELL. CONTINUOUS RESTING TREMORS CONTINUE IN BUE.
[2021-07-16 04:02] LABS: EOSINOPHILS PERCENT AUTO 0 % (0-6); IMMATURE GRAN ABSOLUTE AUTO 0.64 K/mm3 (0.00-0.10); IMMATURE GRAN PERCENT AUTO 6 % (0-1); LYMPHOCYTES PERCENT AUTO 10 % (21-46); MONOCYTES ABSOLUTE AUTO 0.34 K/mm3 (0.16-1.47); MONOCYTES PERCENT AUTO 3 % (4-13); NEUTROPHILS PERCENT AUTO 80 % (41-73); Platelet Count 21 K/mm3 (150-400)
[2021-07-16 04:10] LABS: Anion Gap 5 mmol/L (6-16); Blood Urea Nitrogen 31 mg/dL (8-24); Bun/Creatinine Ratio 76.2 (12.0-20.0); CO2, Blood 31 mmol/L (21-32); Calcium, Blood 8.7 mg/dL (8.5-10.1); Chloride, Blood 106 mmol/L (98-108); Creatinine, Blood 0.41 mg/dL (0.40-1.00); Glomerular Filtration Rate >60 (60-); Glucose, Blood 152 mg/dL (70-99); Sodium, Blood 142 mmol/L (136-145)
[2021-07-16 05:52] LABS: BAND PERCENT MAN 1 % (0-8); BASOPHILS PERCENT MAN 0 % (0-2); EOSINOPHILS PERCENT MAN 0 % (0-6); LYMPHOCYTES PERCENT MAN 8 % (21-46); MONOCYTES PERCENT MAN 2 % (4-13); MYELOCYTE PERCENT MAN 3 % (0-0); SEG NEUTROPHILS PERCENT MAN 86 % (41-73); TOTAL CELLS COUNTED 100
--- NOTE | 2021-07-16 06:12 | NUR ---
SHIFT SUMMARY: PT INTUBATED. VENT: AC 12/370, 5/40%. OPENS EYES TO NAME, @ TIMES WILL TRACK ABOUT THE ROOM, PT WILL SLIGHTLY TURN HER HEAD TOWARDS HER NAME. +CORNEAL REFLEX. PERRLA. PT BLINKING @ REGULAR INTERVALS; FREQUENT EYE CARE GIVEN. CONTINUOUS RESTING TREMORS CONTINUE TO BUE; INTERMITTENT EPISODES OF RYTHMIC JERKING LASTING APPROX 5 min TO 1 ARM OR THE OTHER. NEG BABINSKI. WITHDRAWS FROM NOX STIM IN BLEs. AWAITING CALL BACK FROM NEURO FOR EEG TIME, ADMINISTRATION MANAGER AWARE.
--- NOTE | 2021-07-16 09:00 | NUR ---
PATIENT SPONTANEOUSLY OPENS EYES, DOES NOT TRACK. OBSERVED NON-PURPOSEFUL MOVEMENT IN ALL FOUR EXTREMEMTIES, NO PURPOSEFUL MOVEMENT OR RESPONSE TO COMMAND. SOME RHYTHMIC SHAKING NOTED IN BILATERAL SHOULDERS, DR. WADSWORTH NOTIFIED. SHE IS TO HAVE AN EEG THIS MORNING. MECHANICAL VENTILATION W/ FIO2 40%, PEEP 5. SR.
--- NOTE | 2021-07-16 18:34 | NUR ---
SHIFT SUMMARY NO SIGNIFICANT EVENTS THIS SHIFT. WITH DAUGHTER VISITING THIS AFTERNOON, PATIENT APPEARED TO GRIMACE AT HER DAUGHTER'S REQUEST TO "MAKE A FUNNY FACE." NEURO ASSESSMENT OTHERWISE UNCHANGED FROM MY MORNING ASSESSMENT. EEG WAS OBTAINED THIS MORNING. MECHANICAL VENTILATION, 30% PEEP 5. CONTINUOUS TUBE FEEDING, RECTAL TUBE DRAINING LIQUID STOOL. UOP THIS SHIFT WAS 1550ML. DAUGHTER EXPRESSED CONCERN FOR PATIENT'S PAIN MANAGEMENT D/T NEW GRIMACING. DR WADSWORTH ORDERED PRN FENTANYL AND I ASSURED PATIENT THE TEAM WILL ASSESS PAIN EVERY HOUR AND TREAT NEEDED.
[2021-07-17 03:38] LABS: Hematocrit 26.2 % (33.0-51.0); Mean Corpuscular HGB 32.3 pg (26.0-34.0); Mean Corpuscular HGB Conc 34.4 g/dL (31.5-36.5); Mean Corpuscular Volume 94 fL (80-100); NRBC ABSOLUTE 0.52 K/mm3 (0.00-0.02); NRBC Auto 6.4 /100 WBC (0.0-0.2); RDW Coefficient Variation 14.4 % (11.7-14.2); RDW Standard Deviation 47.8 fL (35.1-46.3); Red Blood Cell Count 2.79 M/mm3 (3.80-5.20); White Blood Cell Count 8.08 K/mm3 (4.00-11.30)
[2021-07-17 03:39] LABS: Platelet Count 24 K/mm3 (150-400)
[2021-07-17 03:51] LABS: Anion Gap 4 mmol/L (6-16); Blood Urea Nitrogen 32 mg/dL (8-24); Bun/Creatinine Ratio 85.1 (12.0-20.0); CO2, Blood 32 mmol/L (21-32); Calcium, Blood 8.7 mg/dL (8.5-10.1); Chloride, Blood 107 mmol/L (98-108); Creatinine, Blood 0.38 mg/dL (0.40-1.00); Glomerular Filtration Rate >60 (60-); Glucose, Blood 171 mg/dL (70-99); Sodium, Blood 143 mmol/L (136-145)
[2021-07-17 05:17] LABS: BAND PERCENT MAN 2 % (0-8); BASOPHILS PERCENT MAN 0 % (0-2); EOSINOPHILS ABSOLUTE MAN 0.08 K/mm3 (0.00-0.68); EOSINOPHILS PERCENT MAN 1 % (0-6); LYMPHOCYTES ABSOLUTE MAN 0.56 K/mm3 (0.84-5.20); LYMPHOCYTES PERCENT MAN 7 % (21-46); MONOCYTES ABSOLUTE MAN 0.08 K/mm3 (0.16-1.47); MONOCYTES PERCENT MAN 1 % (4-13); MYELOCYTE ABSOLUTE MAN 0.08 K/mm3 (0.00-0.00); MYELOCYTE PERCENT MAN 1 % (0-0); NEUTROPHILS ABSOLUTE MAN 7.27 K/mm3 (1.96-9.15); SEG NEUTROPHILS PERCENT MAN 88 % (41-73); TOTAL CELLS COUNTED 100
--- NOTE | 2021-07-17 05:23 | NUR ---
sUMMARY: NEURO- PT OPENS EYES, NONPURPOSEFUL MOVEMENT IN RUE AND RLE. SHRUGGING OF SHOULDER AND MOVING HER FOOT. LOOKS AROUND BUT WILL NOT FOLLOW COMMANDS TO LOOK AT RN OR IN A DIRECTION. PERRL 4MM SLUGGISH. NA INCREASED FROM 142 TO 143. CV- HTN AT TIMES. PRN MEDS GIVEN FOR PAIN SEEM TO ALSO IMPROVE BP. HR HAS BEEN 50'S UP TO 70'S IN A NSR. PALPABLE PULSES X 4 FAIR CAP REFILL. RESP- ON VENT, MINIMAL SETTINGS. TRIGGERING FROM TIME TO TIME. SUCTIONED A COUPLE TIMES, THICK KIN[place]ID SECRETIONS SMALL AMOUNT.COARSE T/O DIMINISHED IN BASES GI- TF AT GOAL 55ML/HR. FWF 250ML/Q4H.HYPOACTIVE BS. FMS IN PLACE AND DRAINING WELL. 300ML OUT. -GOOD UOP FOR SHIFT. 2400ML APPROX. YELLOW CLEAR. SKIN NO CHANGES. Q2 TURNS AND Q4 ORAL CARE PERFORMED. FERREIRA CARE AND RECTAL TUBE CARE COMPLETE
[2021-07-17 10:52] LABS: Appearance, Urine Clear (Clear); Bilirubin, Urine Neg (Neg); Blood, Urine 2+ (Neg); Color, Urine Yellow (P-Yellow); Glucose Qualitative, Urine Neg (Neg); Ketones, Urine Neg (Neg); Leukocyte Esterase, Urine Neg (Neg); Nitrite, Urine Neg (Neg); Protein, Urine Neg (Neg); Specific Gravity, Urine 1.005 (1.003-1.022); Urobilinogen, Urine NORM (Normal)
[2021-07-17 11:14] LABS: Bacteria Few /hpf; Squamous Epithelial Cells Rare /hpf (Few); Yeast/Fungi Urine Mod /hpf
--- NOTE | 2021-07-17 17:31 | NUR ---
SHIFT SUMMARY PATIENT REMAINS INTUBATED, RESPONDS TO PAIN. OPENS EYES, GRIMACES TO PAIN. DOES NOT TRACK. CONTINUES TO HAVE TREMORS IN R SHOULDER. NONPURPOSEFUL MOVEMENT OBSERVED IN BLE. TREATED WITH PRN FENTANYL FOR PAIN. A/C V/C 35%, PEEP 5. DESATS TO MID 80S WITH MAJOR TURNS, LONG RECOVERY TIME. SHE WAS ON CPAP FOR ABOUT AN HOUR TODAY BUT BECAME APNEIC AND WAS PLACED BACK ON A/C V/C. SCANT WHITE SECRETIONS FROM ETT SB-SR. BLOOD PRESSURE LABILE - SBP 110S - 170S. CLEAR YELLOW URINE DRAINING FROM FERREIRA. RECTAL TUBE DRAINING BROWN STOOL. CONTINUOUS TUBE FEED. FREE WATER FLUSHES D/C'D PER DR. WADSWORTH. SKIN - COCCYX PRESSURE ULCER CLEANSED AND REDRESSED. GENERALIZED ECCYMOSIS AND PETECHIA. TURNS Q2. AT BEDSIDE TODAY.
[2021-07-18 05:56] LABS: BASOPHILS ABSOLUTE AUTO 0.03 K/mm3 (0.00-0.23); BASOPHILS PERCENT AUTO 0 % (0-2); Hematocrit 27.6 % (33.0-51.0); Hemoglobin 9.1 g/dL (11.5-16.0); LYMPHOCYTES ABSOLUTE AUTO 0.79 K/mm3 (0.84-5.20); LYMPHOCYTES PERCENT AUTO 11 % (21-46); MONOCYTES ABSOLUTE AUTO 0.22 K/mm3 (0.16-1.47); MONOCYTES PERCENT AUTO 3 % (4-13); Mean Corpuscular HGB 31.8 pg (26.0-34.0); Mean Corpuscular Volume 97 fL (80-100); NRBC ABSOLUTE 0.53 K/mm3 (0.00-0.02); NRBC Auto 7.1 /100 WBC (0.0-0.2); RDW Coefficient Variation 14.9 % (11.7-14.2); Red Blood Cell Count 2.86 M/mm3 (3.80-5.20); White Blood Cell Count 7.51 K/mm3 (4.00-11.30)
[2021-07-18 06:07] LABS: Anion Gap 8 mmol/L (6-16); Blood Urea Nitrogen 31 mg/dL (8-24); Bun/Creatinine Ratio 83.6 (12.0-20.0); CO2, Blood 28 mmol/L (21-32); Calcium, Blood 8.9 mg/dL (8.5-10.1); Chloride, Blood 107 mmol/L (98-108); Creatinine, Blood 0.37 mg/dL (0.40-1.00); Glomerular Filtration Rate >60 (60-); Glucose, Blood 165 mg/dL (70-99); Phosphorus, Blood 2.9 mg/dL (2.5-4.9); Potassium, Blood 3.9 mmol/L (3.5-5.5); Sodium, Blood 143 mmol/L (136-145)
--- NOTE | 2021-07-18 06:13 | NUR ---
SUMMARY: NEURO- PT OPENS EYES, NO TRACKING THAT IS REPRODUCABLE. PT WILL LOOK AT YOU BUT IF YOU SWITCH SIDES OF BED PT DOESNT TRACK OR LOOK THAT WAY TO COMMAND. TREMORS NOTED IN RUE AND RLE. NO PURPOSEFUL MOVEMENT NOTED. PERRL 5MM CV- NSR AND BP STABLE. SOME MILD HTN. HAS RESOLVE. PALPABLE PULSES X 4 RESP- VENT, 35% PEEP 5. CLEAR T/O GI- TF AT GOAL, ACTIVE BS, RECTAL TUBE DRAINING. - ERNESTO CLEAR URINE, GOOD AMOUNT SEE I/O'S. SKIN NO CHANGES
[2021-07-18 06:16] LABS: EOSINOPHILS PERCENT AUTO 0 % (0-6); IMMATURE GRAN ABSOLUTE AUTO 0.42 K/mm3 (0.00-0.10); IMMATURE GRAN PERCENT AUTO 6 % (0-1); NEUTROPHILS ABSOLUTE AUTO 6.05 K/mm3 (1.96-9.15); NEUTROPHILS PERCENT AUTO 81 % (41-73); Platelet Count 34 K/mm3 (150-400)
--- NOTE | 2021-07-18 07:15 | NUR ---
Assumed care of pt at 0700. Bedside report received from Sagar CHAVEZ. Pt on ventilator. ACVC 440/5/35%. SpO2 90% or greater. Pt synchronous with ventilator. No sedation. No vasopressors. Opens eyes to verbal stimulus or spontaneously. No purposeful movement noted to extremities. Pt not in restraints.
--- NOTE | 2021-07-18 09:41 | NUR ---
Dr Galeas in to see patient. Plan of care discussed. No new orders at this time.
--- NOTE | 2021-07-18 11:40 | NUR ---
Patient has new redness, swelling and warmth to anterior neck. Area hard to palpation. No signs of pain with palpation. No crepitus noted. Central line working as expected with all ports flushing without resistance and drawing back blood. Central line insertion site is not focal point of redness. Dr Wynn notifed. Provider assessed pt's mouth for dental caries- none found. Plan to scan pt's neck.
--- NOTE | 2021-07-18 14:45 | NUR ---
Pt's daughter, Felecia, in to see patient. Update provided. Questions answered to visitor's satisfaction.
--- NOTE | 2021-07-18 18:28 | NUR ---
SUMMARY Neuro: Pt is off sedation. Eyes open spontaneously or to verbal stimulus. Pt's eyes move about room, unclear if she is tracking or not. Changes in facial expressions noted while daughter was in room talking to patient. Pt does not follow commands. Cough, gag, corneal reflexes present. No withdrawal from pain BUE. Withdrawal from pain noted BLE. Musculoskeletal: Requires Q2H repositioning and total care with ADLs. Respiratory: 7.5 cm ETT, 24 cm at teeth. Vent settings ACVC 12/440/5/35%. SpO2 90% or greater. Lungs clear t/o. This afternoon, thick armando sputum suctioned from ETT, plan to send specimen. Cardiac: SR per monitor. BP stable. Pedal and posttibial pulses identified with doppler. Thready radial pulses. Edema bilateral hands and feet unchanged from initial assessment. GI: 0 mL residual measured from OG tube. Feed and flush per orders. Rectal tube removed as stool was too thick to pass through tube and was instead leaking around it. No BM since tube was removed at 1200. : Excellent urine output from pulliam catheter. Skin: Beyond skin conditions discussed in initial assessment, pt had new redness, swelling, and warmth to anterior neck. Dr Wynn aware. CT obtained. Redness and swelling has receeded, but still persists. Psychosocial: MARC due to intubation. Pt's daughter visited and bedside and other family members visited outside window and spoke to patient on the phone.
[2021-07-19 03:28] LABS: Hematocrit 26.6 % (33.0-51.0); Hemoglobin 8.9 g/dL (11.5-16.0); Mean Corpuscular HGB 32.1 pg (26.0-34.0); Mean Corpuscular HGB Conc 33.5 g/dL (31.5-36.5); Mean Corpuscular Volume 96 fL (80-100); NRBC ABSOLUTE 0.39 K/mm3 (0.00-0.02); RDW Coefficient Variation 14.8 % (11.7-14.2); RDW Standard Deviation 47.4 fL (35.1-46.3); Red Blood Cell Count 2.77 M/mm3 (3.80-5.20); White Blood Cell Count 6.54 K/mm3 (4.00-11.30)
[2021-07-19 03:32] LABS: Mean Platelet Volume 13.9 fL (9.1-12.4); Platelet Count 41 K/mm3 (150-400)
[2021-07-19 03:45] LABS: Alanine Aminotransfer (ALT/SGP 189 U/L (12-78); Albumin, Blood 1.7 g/dL (3.4-5.0); Albumin/Globulin Ratio 0.5 (0.8-1.8); Alk Phos 149 U/L (50-136); Anion Gap 7 mmol/L (6-16); Aspartate Aminotrans (AST/SGOT 26 U/L (12-37); Bilirubin, Total 0.3 mg/dL (0.1-1.0); Blood Urea Nitrogen 29 mg/dL (8-24); Bun/Creatinine Ratio 75.5 (12.0-20.0); CO2, Blood 28 mmol/L (21-32); Calcium, Blood 8.7 mg/dL (8.5-10.1); Chloride, Blood 108 mmol/L (98-108); Creatinine, Blood 0.38 mg/dL (0.40-1.00); Globulin, Blood 3.3 g/dL (2.2-4.0); Glomerular Filtration Rate >60 (60-); Glucose, Blood 185 mg/dL (70-99); Magnesium, Blood 1.7 mg/dL (1.6-2.4); Phosphorus, Blood 2.5 mg/dL (2.5-4.9); Sodium, Blood 143 mmol/L (136-145)
[2021-07-19 03:46] LABS: BAND PERCENT MAN 2 % (0-8); BASOPHILS PERCENT MAN 0 % (0-2); EOSINOPHILS PERCENT MAN 0 % (0-6); LYMPHOCYTES ABSOLUTE MAN 0.26 K/mm3 (0.84-5.20); LYMPHOCYTES PERCENT MAN 4 % (21-46); MONOCYTES ABSOLUTE MAN 0.13 K/mm3 (0.16-1.47); MONOCYTES PERCENT MAN 2 % (4-13); MYELOCYTE ABSOLUTE MAN 0.06 K/mm3 (0.00-0.00); MYELOCYTE PERCENT MAN 1 % (0-0); NEUTROPHILS ABSOLUTE MAN 6.08 K/mm3 (1.96-9.15); SEG NEUTROPHILS PERCENT MAN 91 % (41-73); TOTAL CELLS COUNTED 100
--- NOTE | 2021-07-19 05:48 | NUR ---
SUMMARY: NEURO- PT OPENS EYES TO VOICE, DOES NOT TRACK WITH EYES. DOES NOT FOLLOW COMMANDS. DOES W/D TO PAIN IN BLE, GRIMACE AND INCREASED TREMOR WITH RICHARD NAIL PRESSURE. PERRL. AT TIMES SHE GAZES UP AND TO THE RIGHT. RESP- CLEAR T/O NOW. AT START OF SHIFT PT WAS COARS ON THE LEFT AND DID NOT TOLERATE TURNING TO THE RIGHT. THIS AM TOLERATED TURN TO RIGHT AND MAINTAINED SAT >94%. CV- PALPABLE PULSES IN BUE, DOPPLER IN BLE. 2+ EDEMA IN BILAT HANDS AND FEET. SB-NSR. 55-75. S1S2 PRESENT. GI- 1 BM OVER NIGHT. ACTIVE BS. TF AT GOAL. - ERNESTO, CLEAR, GOOD OUTPUT. FERREIRA WITH TEMP SENSOR. SKIN, WOUNDS CHARTED IN ASSESSMENT, NO CHANGES FROM THAT ASSESSMENT.
--- NOTE | 2021-07-19 19:22 | NUR ---
NO SIGNIFICANT EVENTS THIS SHIFT. PATIENT APPEARS TO BE ABLE TO TRACK UP AND DOWN INTERMITTENTLY, BUT STILL DOES NOT FOLLOW COMMANDS. OPENS EYES SPONTANEOUSLY. PUPILS 5 AND REACTIVE. MECHANICAL VENTILATION, SPONTANEOUS MODE MOST OF THE DAY TODAY - FIO2 35%, PEEP 5. SR. HAD 2 BMS TODAY. CONTINOUS TUBE FEEDING AT 55ML/HR. WOUND ON COCCYX CLEANSED AND DRESSED WITH XEROFOAM AND FOAM DRESSING. AT BEDSIDE THIS AFTERNOON, CARE EXPLAINED.
--- NOTE | 2021-07-19 19:42 | NUR ---
[place] of Care: Pt switched back to rate VC/AC FiO2 35% PEEP 5. Scant clear/white secretions, lung sounds coarse with slight exp wheezes on the left side. Resting comfortably, unable to follow commands, intermittently grimaces to pain, PERRLA 4.
[2021-07-20 04:34] LABS: Hematocrit 27.7 % (33.0-51.0); Hemoglobin 8.9 g/dL (11.5-16.0); Mean Corpuscular HGB Conc 32.1 g/dL (31.5-36.5); Mean Corpuscular Volume 97 fL (80-100); Mean Platelet Volume 11.9 fL (9.1-12.4); NRBC ABSOLUTE 0.44 K/mm3 (0.00-0.02); NRBC Auto 5.9 /100 WBC (0.0-0.2); Platelet Count 57 K/mm3 (150-400); RDW Coefficient Variation 14.7 % (11.7-14.2); RDW Standard Deviation 46.1 fL (35.1-46.3); Red Blood Cell Count 2.87 M/mm3 (3.80-5.20); White Blood Cell Count 7.41 K/mm3 (4.00-11.30)
[2021-07-20 04:56] LABS: Anion Gap 7 mmol/L (6-16); Blood Urea Nitrogen 29 mg/dL (8-24); Bun/Creatinine Ratio 89.2 (12.0-20.0); CO2, Blood 27 mmol/L (21-32); Calcium, Blood 8.8 mg/dL (8.5-10.1); Chloride, Blood 108 mmol/L (98-108); Creatinine, Blood 0.33 mg/dL (0.40-1.00); Glomerular Filtration Rate >60 (60-); Glucose, Blood 180 mg/dL (70-99); Potassium, Blood 3.9 mmol/L (3.5-5.5); Sodium, Blood 142 mmol/L (136-145)
[2021-07-20 05:47] LABS: BAND PERCENT MAN 2 % (0-8); BASOPHILS PERCENT MAN 0 % (0-2); EOSINOPHILS PERCENT MAN 0 % (0-6); LYMPHOCYTES ABSOLUTE MAN 0.51 K/mm3 (0.84-5.20); LYMPHOCYTES PERCENT MAN 7 % (21-46); METAMYELOCYTE ABSOLUTE MAN 0.14 K/mm3 (0.00-0.00); METAMYELOCYTE PERCENT MAN 2 % (0-0); MONOCYTES ABSOLUTE MAN 0.44 K/mm3 (0.16-1.47); MONOCYTES PERCENT MAN 6 % (4-13); NEUTROPHILS ABSOLUTE MAN 6.29 K/mm3 (1.96-9.15); SEG NEUTROPHILS PERCENT MAN 83 % (41-73); TOTAL CELLS COUNTED 100
--- NOTE | 2021-07-20 06:00 | NUR ---
End of Shift Summary: Neuro: Unable to follow commands, grimaces to pain but extremities do not move to painful stimuli. Intermittently able to track to the right but unable to look to the left. Pt also has tremors with slight stimulation which makes it difficult for tele monitor to capture heart rhythm. PEERLA at 4/5. Resp: Remains intubated, on AC/VC with FiO2 35% and PEEP 5. Lungs are coarse with slight exp. wheezing on left side. Small to moderate amount of clear/white secretions. Significant amount of drooling. VAP measures implemented. Cardiac: +3 pitting edema on upper and lower extremities, afebrile, BP has been stable and wnl, pulses are palpable, HR in 80 - low 100's GI/: Had 2x small and 1x large BM overnight, TF remains at goal @ 45mL. Myers also remains in place with adequate UO. Skin: Pt has fragile and ecchymotic skin. Pt perineal and groin area excoriated - put 2 pillow cases as barriers. Changed mepilex on coccyx after cleansing with NS. q2 hour turns. Lines: Right 4x lumen IJ CVC - remains patent, blood return noted on all lumens and dressing changed 07/20 Infusions: TKO @ 10mL
--- NOTE | 2021-07-20 08:00 | NUR ---
ASSUMED CARE REPORT FROM ELLE CHAVEZ AT 0700. PT INTUBATED, VENT SETTINGS AC/VC 12/440/5/35%. LUNGS COARSE THROUGHOUT. SMALL, THIN WHITE SECRETIONS THROUGH ETT. COUGH/GAG REFLEX PRESENT. OPENS EYES SPONT, DOES NOT TRACK. DOES NOT FOLLOW DIRECTIONS. TREMOROUS, WORSE ON RIGHT SIDE. NO PURPOSEFUL MOVEMENTS NOTED. PUPILS 5 MM, REACTIVE. SR ON MONITOR, RATE 80'S. BP STABLE. ABD ROUND, SOFT, NON TENDER. BT X 4. TUBE FEEDS AT GOAL, 55 ML/HR c 30 ML FLUSH q4 HR. NO RESIDUALS THIS AM. FERREIRA PATENT, DRAINING CLEAR YELLOW URINE TO GRAVITY. 3+ EDEMA TO EXT. CVC TO RIJ, DRESSING C/D/I. WILL CONTINUE TO MONITOR.
--- NOTE | 2021-07-20 17:46 | NUR ---
SHIFT SUMMARY NO ACUTE CHANGES THIS SHIFT, REMAINS ON VENT, WAS ON SPONT FOR APPROX 3 HOURS, CURRENTLY ON AV/VC 12/440/5/35%. LUNGS COARSE. THIN CLEAR SECRETIONS. VSS. TUBE FEEDS CONTINUE AT GOAL, NO RESIDUALS. FERREIRA PATENT, DRAINING TO GRAVITY. RECTAL TUBE PLACED FOR LOOSE BMS THIS SHIFT. WILL CONTINUE TO MONITOR UNTIL REPORT TO ONCOMING NURSE.
--- NOTE | 2021-07-20 19:21 | NUR ---
Assumed Care: Pt seem to be in no distress, resting comfortably. With slight stimulation pt starts tremors on right hand. Lines and drains remains patent and in place. Remains intubated with AC/VC mode FiO2 35% and PEEP 5.
--- NOTE | 2021-07-21 05:50 | NUR ---
End of Shift Summary: No significant changes throughout the night. Neuro: Pt has been of sedation for several days, unable to follow commands, only grimaces to pain and all ext. don't move to painful stimuli. Does not track but PERRLA @ 5. Resp: Remains intubated on VC/AC 35% and PEEP 5. Moderate to large amount of thick yellow secretions endotracheally. Lung sounds are course with occassional wheezing. VAP measures done throughout the night. Cardiac: HTN when being stimulated, continues have tremors, BP was able to go down after fent was given. +2/+3 edema on extremities. Afebrile. GI/: TF still running at goal (55 mL/hr), rectal tube and pulliam remains in place. Int: Q2 hour turns, perineal area still excoriated and fragile.
--- NOTE | 2021-07-21 08:41 | NUR ---
ASSUMED CARE REPORT FROM ELLE CHAVEZ AT 0700. PT INTUBATED. VENT SETTINGS SPONT 12/5/30%. TIDAL VOLUMES HIGH 500'S. LUNGS CLEAR. SMALL THICK WHITE SECRETIONS FROM ETT. COUGH/GAG REFLEX. PT OPENS EYES SPONT. OCCASIONALLY APPEARS TO MAKE EYE CONTACT BUT CANNOT GET PT TO TRACK. DOES NOT FOLLOW DIRECTIONS. TREMOROUS, WORSE ON RIGHT SIDE. RESPONSIVE TO PAINFUL STIMULI. FAVIO. ABD ROUND, SOFT, NON TENDER. BT X 4. TUBE FEEDS AT GOAL, 55 ML/HR c 30 ML FLUSH q4 HR. NO RESIDUALS THIS AM. RECTAL TUBE IN PLACE, LIQUID BROWN STOOL OUT. SKIN FRAGILE, SEE ASSESSMENT. 3+ EDEMA TO ALL EXT. ELEVATED ON PILLOWS. SR, RATE 80'S. BP STABLE. FERREIRA PATENT, DRAINING CLEAR YELLOW URINE TO GRAVITY. CVC TO RI, WILL DISCUSS REMOVAL c DR ARCINIEGA. WILL CONTINUE TO MONITOR.
[2021-07-21 09:59] LABS: Hematocrit 27.9 % (33.0-51.0); Hemoglobin 9.5 g/dL (11.5-16.0); Mean Corpuscular HGB 32.2 pg (26.0-34.0); Mean Corpuscular HGB Conc 34.1 g/dL (31.5-36.5); Mean Corpuscular Volume 95 fL (80-100); Mean Platelet Volume 12.4 fL (9.1-12.4); NRBC ABSOLUTE 0.43 K/mm3 (0.00-0.02); NRBC Auto 5.3 /100 WBC (0.0-0.2); Platelet Count 62 K/mm3 (150-400); RDW Coefficient Variation 15.4 % (11.7-14.2); Red Blood Cell Count 2.95 M/mm3 (3.80-5.20); White Blood Cell Count 8.08 K/mm3 (4.00-11.30)
[2021-07-21 10:17] LABS: BASOPHILS PERCENT MAN 0 % (0-2); EOSINOPHILS PERCENT MAN 0 % (0-6); LYMPHOCYTES PERCENT MAN 10 % (21-46); METAMYELOCYTE ABSOLUTE MAN 0.08 K/mm3 (0.00-0.00); METAMYELOCYTE PERCENT MAN 1 % (0-0); MONOCYTES PERCENT MAN 5 % (4-13); MYELOCYTE ABSOLUTE MAN 0.08 K/mm3 (0.00-0.00); MYELOCYTE PERCENT MAN 1 % (0-0); SEG NEUTROPHILS PERCENT MAN 83 % (41-73); TOTAL CELLS COUNTED 100
--- NOTE | 2021-07-21 17:26 | NUR ---
SHIFT SUMMARY NO ACUTE CHANGES THIS SHIFT. PT ON SPONT FOR MOST OF SHIFT FOR OPEN ENDED SBT. SPONT 10/5/30%, TIDAL VOLUMES 400'S. LUNGS CLEAR. TUBE FEEDS AT GOAL, NO RESIDUALS. FERREIRA PATENT, DRAINED 1100 ML CLEAR YELLOW URINE TO GRAVITY. RECTAL TUBE TO GRAVITY, 300 ML LIQUID BROWN STOOL OUT. POWERGLIDE PLACED TO RUE, LEAKING NOTED TO LATERAL SIDE, CATH RETURNS BLOOD. LEAKING APPEARS TO BE FROM PRIOR PUNCTURE SITES, WILL MONITOR CLOSELY. VSS. WILL CONTINUE TO MONITOR UNTIL REPORT TO ONCOMING NURSE.
--- NOTE | 2021-07-21 19:43 | NUR ---
[place] of Care: Pt resting comfortably, started tremors after minor stimulation and oral care. Remains intubated, on spontaneous mode satting mid 90's. Lines and drains remain patent, clean, dry and intact
[2021-07-22 04:50] LABS: Hemoglobin 9.4 g/dL (11.5-16.0); Mean Corpuscular HGB 32.2 pg (26.0-34.0); Mean Corpuscular HGB Conc 33.6 g/dL (31.5-36.5); Mean Corpuscular Volume 96 fL (80-100); NRBC ABSOLUTE 0.43 K/mm3 (0.00-0.02); NRBC Auto 4.6 /100 WBC (0.0-0.2); Platelet Count 64 K/mm3 (150-400); RDW Coefficient Variation 15.9 % (11.7-14.2); RDW Standard Deviation 46.4 fL (35.1-46.3); Red Blood Cell Count 2.92 M/mm3 (3.80-5.20); White Blood Cell Count 9.39 K/mm3 (4.00-11.30)
--- NOTE | 2021-07-22 05:49 | NUR ---
End of Shift Summary: No significant changes overnight. Pt still unable to follow commands or track. Grimaces to pain, with slight stimulation pt starts to have tremor more significant on the right side. Switched to AC/VC mode at midnight, FiO2 30% and PEEP 5, small amount of white thick secretions, lung sounds are coarse with intermittent inspiratory and expiratory wheezing. HR in 90's, monitor has a hard time reading heart rhythm due to tremors, +3 edema on upper and lower bilateral extremities, afebrile. Rectal tube and pulliam catheter remains patent. TF still running at goal (55 mL/hr), no residuals. No infusions running at this time. RN and full charge bookkeeper tried to place another IV but was unsuccessful, IJ CVC remains in place.
[2021-07-22 05:55] LABS: Mean Platelet Volume 13.2 fL (9.1-12.4)
[2021-07-22 06:05] LABS: Anion Gap 9 mmol/L (6-16); Blood Urea Nitrogen 28 mg/dL (8-24); Bun/Creatinine Ratio 85.4 (12.0-20.0); CO2, Blood 26 mmol/L (21-32); Calcium, Blood 8.8 mg/dL (8.5-10.1); Chloride, Blood 109 mmol/L (98-108); Creatinine, Blood 0.33 mg/dL (0.40-1.00); Glomerular Filtration Rate >60 (60-); Glucose, Blood 158 mg/dL (70-99); Magnesium, Blood 1.8 mg/dL (1.6-2.4); Phosphorus, Blood 2.6 mg/dL (2.5-4.9); Potassium, Blood 4.9 mmol/L (3.5-5.5); Sodium, Blood 144 mmol/L (136-145)
[2021-07-22 06:07] LABS: BAND PERCENT MAN 1 % (0-8); BASOPHILS PERCENT MAN 0 % (0-2); EOSINOPHILS PERCENT MAN 0 % (0-6); LYMPHOCYTES ABSOLUTE MAN 0.46 K/mm3 (0.84-5.20); LYMPHOCYTES PERCENT MAN 5 % (21-46); METAMYELOCYTE ABSOLUTE MAN 0.18 K/mm3 (0.00-0.00); METAMYELOCYTE PERCENT MAN 2 % (0-0); MONOCYTES ABSOLUTE MAN 0.37 K/mm3 (0.16-1.47); MONOCYTES PERCENT MAN 4 % (4-13); MYELOCYTE ABSOLUTE MAN 0.09 K/mm3 (0.00-0.00); MYELOCYTE PERCENT MAN 1 % (0-0); NEUTROPHILS ABSOLUTE MAN 8.26 K/mm3 (1.96-9.15); SEG NEUTROPHILS PERCENT MAN 87 % (41-73); TOTAL CELLS COUNTED 100
--- NOTE | 2021-07-22 07:30 | NUR ---
ASSUMED CARE PATIENT LYING IN BED INTUBATED ON AC/VC 12/440/5/30% W/ SPO2 IN MID TO HIGH 90'S AND RR 18-20. PATIENT HAS EYES OPEN AND TRACKS TO SOUND, BUT DOES NOT FOLLOW ANY COMMANDS. RT SIDED TREMOR PRESENT, WORSE W/ STIMULATION. STRONG HERBIE RADIAL PULSES AND FAINT DP & PT PULSES. SINUS RHYTHM W/ RATE IN 60'S-80'S. LUNGS COARSE T/O W/ THICK YELLOW SECRETIONS THROUGH ETT. ETT 7.5 25CM @ LIP. BT ACTIVE; VHP INF @ GR 55ML/HR W/ 30ML WATER FLUSHES Q4H AND RECTAL TUBE PATENT DRAINING LIQUID GREEN/BROWN STOOL. TEMP FERREIRA PATENT AND DRAINING YELLOW CLEAR URINE TO GRAVITY. SKIN OVERALL PALE AND COOL TO TOUCH. SCATTERED PETECHIAE ON HERBIE ARMS; SKIN TEARS TO RT INNER THIGH AND REDNESS TO GROIN FROM FERREIRA AND RECTAL TUBE PRESSURE, WRAPPED W/ SOFT CLOTH TO ALLEVIATE PRESSURE. FOOT DROP BOOTS AND SCDS IN PLACE TO BLE. BEDSIDE REPORT COMPLETED W/ RELAY SHOP TESTER NURSE.
--- NOTE | 2021-07-22 17:45 | NUR ---
SHIFT SUMMARY PATIENT REMAINED ON SPONTANEOUS T/O SHIFT W/ SPO2 IN LOW TO MID 90'S, RR 16-20'S. PATIENT STILL OPENS EYES SPONTANEOUSLY AND TRACKS, BUT DOES NOT FOLLOW ANY COMMANDS. PICC PLACED OVER PG IN YAJAIRA; CL AND PG REMOVED W/O COMPLICATION. NS TKO INF INTO PICC. KEPPRA INCREASED FROM Q12H TO Q8H. PATIENT HAS HAD NO RESIDUALS DURING SHIFT; 1200 YELLOW CLEAR URINE OUT AND SCANT UNMEASURABLE STOOL COLLECTED IN RECTAL TUBE COLLECTION BAG. NO OTHER CHANGES TO PATIENT CONDITION DURING SHIFT.
--- NOTE | 2021-07-22 18:30 | NUR ---
Review of pt with Emeka Mcgarry for ethic consult. Review of pt status and progress with nursing and physicians. Review of [facility] guide on ethical and Religous decisions addresses directive 27 and 28. Will continue with gentle [place] for the the patients and children to support their supiritual and moral stress at particpatient in withdrawl of care. Review of intevisits plan of care. Will monitor and assist with symptom management. Spent time with pt with theraputic touch and talk to hopefully help her on her journey and reduce suffering. Continue with ventilator support increased family visits and careful theraputic conversation. pt high risk for seizures will review medications. pt kps score is 20%.
--- NOTE | 2021-07-23 07:30 | NUR ---
ASSUMED CARE PATIENT LYING IN BED INTUBATED ON SPONTANEOUS PS 10/5 30% FIO2; SPO2 MID 90'S AND RR 18-20'S. COPIOUS AMOUNTS OF ORAL SECRETIONS PRESENT. LUNG SOUNDS ARE COARSE T/O. NO COUGH OR SWALLOW PRESENT, MINIMAL GAG W/ ORAL CARE. NSR W/ RATE IN 90'S. FAINT PULSES IN ALL EXTREMITIES. 2+ EDEMA TO HERBIE HANDS. BT HYPOACTIVE; VHP TF @ GR 55ML/HR AND 30ML Q4H WATER FLUSHES VIA OGT; RECTAL TUBE PATENT AND DRAINING LIQUID BROWN STOOL. TEMP FERREIRA PATENT AND DRAINING CLEAR YELLOW URINE TO GRAVITY. SKIN OVERALL FRAGILE, PETECHIAE SCATTERED ACROSS BUE, HEALING SKIN TEARS ON RT INNER THIGH, PURPLE INDENTATIONS TO LT AND RT INNER THIGH FROM RECTAL TUBE AND FERREIRA CATH PRESSURE, STAGE 2 PRESSURE ULCER TO SACRUM PRESENT ON ADMISSION. PICC TO YAJAIRA PATENT AND INF KEPPRA AND NS TKO. BEDSIDE REPORT COMPLETED W/ KATHY SCHULZ.
--- NOTE | 2021-07-23 08:28 | NUR ---
Ethics consultation service requested. Medical history, case notes and prognostic factors reviewed with palliative care, yolanda rosales, and ordering hospitalist. Concerns were expressed that the level of care being rendered to the principle might be disproportionate and overly aggressive given her terminal condition, low probability of improvement, and likely overall negative clinical trajectory. 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 She is acutely encephalopathic with recovery potential unknown, though such a prospect is viewed with very low optimism. She is on mechanical airway support, but has been respirating spontaneously for the last 24 hours, and her platelet count has stabalized. She is a good candidate for hospice, and the has expressed interest in this as a viable option. The degree to which he understands the complexity and burden associated with her need level in a home care environment is ambiguous. Conversations are underway about performing a tracheostomy, coordinating percutaneous feeding, and transitioning Mrs Rojo home on hospice. This may be the best plan as the maria c spouse is currenlty recalcitrant to, and suspicious of, any other medical course. It must be noted that nutrition by tube is generally non-homogenous with end of life arrangements. If her clinical situation worsens, she becomes unstable, and the plan to pivot home is untenable, it would be ethically appropriate at that point to insist on forgoing aggressive measures in the event of decompensation, as they would impose an undue and disproportionate burden of suffering, and exceed a reasonable medical standard of care. Refusing the trach at this juncture however, would likely be unsupported by the miladis and create additional conflict and distrust. Thank you for this consult. Emeka Mcgarry ThD
--- NOTE | 2021-07-23 19:23 | NUR ---
SHIFT SUMMARY NO MAJOR CHANGES IN PATIENT CONDITION TODAY. PATIENT REMAINED ON SPONTANEOUS THROUGHOUT SHFIT W/ SPO2 IN MID 90'S AND RR 16-20'S. PATIENT DID HAVE WEAK COUGH AT END OF SHIFT THAT WAS NOT PRESENT EARLIER. PATIENTS CAME TO VISIT TODAY AND CONVERSATION REGARDING CARE AND EXPECTATIONS WAS HAD BETWEEN THIS NURSE AND THE PATIENT'S WITH GOOD RESPONSE FROM . BEDSIDE REPORT COMPLETED W/ STRUCTURAL METAL FABRICATOR APPRENTICE RN.
--- NOTE | 2021-07-23 19:39 | NUR ---
ASSUMED CARE OF PT AT 1900, REPORT RECEIVED FROM ANABELL CHAVEZ. PT INTUBATED, RESPONDS MINIMALLY TO PAINFUL STIMULI. NOT FOLLOWING COMMANDS. PUPILS EQUAL AND REACTIVE. NO SEDATION AT THIS TIME. PULSES WEAK IN ALL EXTREMITIES. HYPERACTIVE BOWEL TONES. OG TUBE RUNNING TF VHP AT GOAL RATE OF 55 ML/HR, 30 ML RESIDUALS THIS CHECK. LUNGS CLEAR WITH DIM BASES, SMALL AMOUNT OF THICK WHITE SECRETIONS VIA ETT. RECTAL TUBE IN PLACE DRAINING LIQUID BROWN STOOL, FERREIRA DRAINING CLEAR YELLOW URINE TO GRAVITY. PT WITH OCCASIONAL TREMOR, R>L. NS TKO INFUSING.
[2021-07-24 03:45] LABS: BASOPHILS ABSOLUTE AUTO 0.03 K/mm3 (0.00-0.23); BASOPHILS PERCENT AUTO 0 % (0-2); EOSINOPHILS PERCENT AUTO 0 % (0-6); Hematocrit 27.5 % (33.0-51.0); Hemoglobin 9.3 g/dL (11.5-16.0); IMMATURE GRAN ABSOLUTE AUTO 0.58 K/mm3 (0.00-0.10); IMMATURE GRAN PERCENT AUTO 6 % (0-1); LYMPHOCYTES PERCENT AUTO 10 % (21-46); MONOCYTES ABSOLUTE AUTO 0.47 K/mm3 (0.16-1.47); MONOCYTES PERCENT AUTO 5 % (4-13); Mean Corpuscular HGB 32.5 pg (26.0-34.0); Mean Corpuscular HGB Conc 33.8 g/dL (31.5-36.5); Mean Corpuscular Volume 96 fL (80-100); NEUTROPHILS PERCENT AUTO 79 % (41-73); NRBC ABSOLUTE 0.26 K/mm3 (0.00-0.02); NRBC Auto 2.6 /100 WBC (0.0-0.2); Platelet Count 51 K/mm3 (150-400); RDW Standard Deviation 48.6 fL (35.1-46.3); Red Blood Cell Count 2.86 M/mm3 (3.80-5.20); White Blood Cell Count 9.98 K/mm3 (4.00-11.30)
[2021-07-24 04:23] LABS: Alanine Aminotransfer (ALT/SGP 148 U/L (12-78); Albumin, Blood 2.1 g/dL (3.4-5.0); Albumin/Globulin Ratio 0.7 (0.8-1.8); Alk Phos 123 U/L (50-136); Anion Gap 6 mmol/L (6-16); Aspartate Aminotrans (AST/SGOT 26 U/L (12-37); Bilirubin, Total 0.4 mg/dL (0.1-1.0); Blood Urea Nitrogen 26 mg/dL (8-24); Bun/Creatinine Ratio 92.9 (12.0-20.0); CO2, Blood 29 mmol/L (21-32); Calcium, Blood 8.5 mg/dL (8.5-10.1); Chloride, Blood 109 mmol/L (98-108); Creatinine, Blood 0.28 mg/dL (0.40-1.00); Globulin, Blood 3.1 g/dL (2.2-4.0); Glomerular Filtration Rate >60 (60-); Glucose, Blood 157 mg/dL (70-99); Magnesium, Blood 1.8 mg/dL (1.6-2.4); Phosphorus, Blood 2.4 mg/dL (2.5-4.9); Potassium, Blood 4.1 mmol/L (3.5-5.5); Sodium, Blood 144 mmol/L (136-145); Total Protein, Blood 5.2 g/dL (6.4-8.2)
--- NOTE | 2021-07-24 06:06 | NUR ---
SHIFT SUMMARY PT CONTINUES INTUBATED, CURRENT SETTINGS PRESSURE SUPPORT 10, PEEP 5, FIO2 30%. VENT SETTINGS CHANGED DUE TO PT HAVE PERIODS OF APNEA AND LOW MINUTE VOLUMES. SMALL AMOUNT OF SECRETIONS ORALLY, SCANT AMOUNT VIA ETT. LUNGS COARSE T/O. RECTAL TUBE DRAINING LIQUID STOOL TO GRAVITY, FERREIRA DRAINING CLEAR YELLOW URINE TO GRAVITY. NS TKO INFUSING. PT NOT FOLLOWING COMMANDS, TRACKED WITH EYES ONCE THIS SHIFT.
--- NOTE | 2021-07-24 09:06 | NUR ---
ASSUMED CARE BEDSIDE REPORT FROM SERVANDO CHAVEZ AT 0700. PT INTUBATED, VENT SETTINGS SPONT 10/5/30%. TIDAL VOLUMES 350-400'S. LUNGS COURSE THROUGHOUT. SCANT THIN WHITE SECRETIONS THROUGH ETT. COUGH/GAG REFLEX. NO SEDATION. GRIMACES c ORAL CARE. OPENS EYES TO SPONT. NOT TRACKING AT THIS TIME. DOES NOT FOLLOW COMMANDS. PUPILS 5 MM, FAVIO. TREMOROUS, WORSE ON RUE. ABD ROUND, SOFT, NON TENDER. BT X 4. TUBE FEEDS AT GOAL, NO RESIDUALS. FERREIRA PATENT, DRAINING. RECTAL TUBE DRAINING LIQUID BROWN STOOL OUT TO GRAVITY. EDEMA TO EXT IMPROVED, 1+. WILL CONTINUE TO MONITOR.
--- NOTE | 2021-07-24 16:58 | NUR ---
No changes family unable to come in today. Nursing realys stil some possible tracking and platlett count down.
--- NOTE | 2021-07-24 17:27 | NUR ---
SHIFT SUMMARY NO ACUTE CHANGES THIS SHIFT. REMAINED ON SPONT 05/28/30% ENTIRE SHIFT. LUNGS COARSE, SCANT SECRETIONS. NEURO UNCHANGED. TUBE FEEDS AT GOAL, NO RESIDUALS. FERREIRA PATENT, DRAINING CLEAR YELLOW URINE TO GRAVITY. RECTAL TUBE c SCANT BROWN LIQUID DRAINAGE. VSS. WILL CONTINUE TO MONITOR UNTIL REPORT TO ONCOMING NURSE.
--- NOTE | 2021-07-24 20:07 | NUR ---
[place] OF CARE ASSUMED CARE OF PT AT 1900, REPORT RECEIVED FROM AMAN CHAVEZ. PT INTUBATED, VENT SETTINGS PRESSURE SUPPORT 10/5 FIO2 30%. LUNGS CLEAR T/O. SCANT SECRETIONS FROM ETT. SMALL AMOUNT ORALLY. PT OPENS EYES SPONTANEOUSLY, NOT TRACKING THIS ASSESSMENT. DOES NOT FOLLOW COMMANDS, DID WITHDRAW FROM PAINFUL STIMULI. PUPILS EQUAL AND REACTIVE. OG WITH TF AT GOAL RATE OF 55 ML/HR, MINIMAL RESIDUALS THIS CHECK. ACTIVE BOWEL TONES, RECTAL TUBE IN PLACE DRAINING TO GRAVITY. FERREIRA PATENT AND DRAINING TO GRAVITY. NS TKO INFUSING.
--- NOTE | 2021-07-24 23:58 | NUR ---
UPDATE PT HAVING FREQUENT PERIODS OF APNEA ON SPONT MODE, VENT SETTINGS CHANGED TO ACVC 12/440/5/30%.
--- NOTE | 2021-07-25 06:03 | NUR ---
SHIFT SUMMARY PT REMAINS INTUBATED, VENT SETTINGS ACVC 12/440/5/30%. LUNGS COARSE T/O. NS TKO INFUSING. PT WITH ACTIVE BOWEL TONES, TOLERATING TF AT GOAL RATE OF 55 ML/HR WITH MINIMAL RESIDUALS T/O SHIFT. RECTAL TUBE AND FERREIRA PATENT AND DRAINING TO GRAVITY. PT NOT FOLLOWING COMMANDS, DID TRACK WITH EYES ONCE THIS SHIFT, WITHDRAWS FROM PAINFUL STIMULI. HR 80-100'S SINUS ON MONITOR, SBP STABLE.
--- NOTE | 2021-07-25 17:11 | NUR ---
Minimal withdrawel to pain response, pupils 5mm brisk, some evidence of tracking requiring specific stimuli such as the , NSR 80s, weak pulses, BP WNL, coarse lungs, scant secretions, audible bowels, minimal rectal tube output, pulliam clear yellow output, TF continues, q2 turns completed for skin integrity, active in care discussed further prognosis with MD.
--- NOTE | 2021-07-25 19:42 | NUR ---
ASSUME CARE: PT IS INTUABTED AND LYING IN BED W/ EYES CLOSED RESTING QUIETLY. SHE OPENS HER EYES TO SOUND AND WILL SOMETIMES TRACK. SHE IS NOT FOLLOWING COMMANDS OR MOVING ANY EXTREMITIES AND THERE IS A FINE TREMOR IN HER RIGHT ARM. VENT SETTINGS ARE PS 10/5 30% AND SHE IS SATING 100%. HR IS 92 AND BP IS 128/81. SHE HAS SWELLING IN HER NECK, GENERALIZED, AND IN BLE. FERREIRA IN PLACE DRAINING YELLOW URINE TO GRAVITY. RECTAL TUBE IN PLACE DRAINING LOOSE BROWN STOOL TO GRAVITY. FERREIRA TEMP READING 99.3. OG IN PLACE TO TF RUNNING AT GOAL W/ NO RESIDUALS. SKIN IS WARM AND DRY W/ SCATTERED BRUISING. SEE SHIFT ASSESSMENT FOR DETAILS.
[2021-07-26 04:20] LABS: BASOPHILS ABSOLUTE AUTO 0.03 K/mm3 (0.00-0.23); BASOPHILS PERCENT AUTO 0 % (0-2); EOSINOPHILS PERCENT AUTO 0 % (0-6); Hematocrit 27.9 % (33.0-51.0); Hemoglobin 9.4 g/dL (11.5-16.0); IMMATURE GRAN ABSOLUTE AUTO 0.67 K/mm3 (0.00-0.10); IMMATURE GRAN PERCENT AUTO 5 % (0-1); LYMPHOCYTES PERCENT AUTO 10 % (21-46); MONOCYTES ABSOLUTE AUTO 0.57 K/mm3 (0.16-1.47); MONOCYTES PERCENT AUTO 5 % (4-13); Mean Corpuscular HGB 32.6 pg (26.0-34.0); Mean Corpuscular HGB Conc 33.7 g/dL (31.5-36.5); Mean Corpuscular Volume 97 fL (80-100); Mean Platelet Volume 9.9 fL (9.1-12.4); NEUTROPHILS PERCENT AUTO 81 % (41-73); NRBC ABSOLUTE 0.23 K/mm3 (0.00-0.02); NRBC Auto 1.8 /100 WBC (0.0-0.2); Platelet Count 51 K/mm3 (150-400); RDW Coefficient Variation 18.3 % (11.7-14.2); RDW Standard Deviation 53.3 fL (35.1-46.3); Red Blood Cell Count 2.88 M/mm3 (3.80-5.20); White Blood Cell Count 12.67 K/mm3 (4.00-11.30)
[2021-07-26 04:42] LABS: Anion Gap 6 mmol/L (6-16); Blood Urea Nitrogen 27 mg/dL (8-24); Bun/Creatinine Ratio 105.5 (12.0-20.0); CO2, Blood 28 mmol/L (21-32); Calcium, Blood 8.9 mg/dL (8.5-10.1); Chloride, Blood 109 mmol/L (98-108); Creatinine, Blood 0.26 mg/dL (0.40-1.00); Glomerular Filtration Rate >60 (60-); Glucose, Blood 150 mg/dL (70-99); Magnesium, Blood 1.7 mg/dL (1.6-2.4); Phosphorus, Blood 2.5 mg/dL (2.5-4.9); Sodium, Blood 143 mmol/L (136-145)
[2021-07-26 04:50] LABS: Bicarbonate Venous 28.5 mmol/L (24.0-30.0); PO2 Venous 101 mmHg (38-42); pH Blood Venous 7.45 (7.34-7.37)
--- NOTE | 2021-07-26 06:08 | NUR ---
SHIFT SUMMARY: NO ACUTE OVERNIGHT EVENTS. PT REMAINS INTUBATED BUT SETTINGS HAVE BEEN CHANGED TO ACVC 12/440/5/30% FOR APNEIC PERIODS AROUND MIDNIGHT. SHE IS CURRENTLY SATING 100%, HR 66, BP 103/67, AND TEMP IS 98.6. SHE OPENS HER EYES TO SOUND, WILL SOMETIME TRACK, RESPONDS TO PAIN, BUT DOES NOT FOLLOW COMMANDS OR MOVE ANY EXTREMITIES. TREMORS NOTED TO BE WORSE IN THE RIGHT ARM. FERREIRA AND RECTAL TUBE BOTH REMAIN IN PLACE AND ARE DRAINING TO GRAVITY. OGT IS STILL IN PLACE RUNNING TF TO GOAL. WILL REPORT TO ONCOMING RN WHEN AVAILABLE.
[2021-07-27 04:08] LABS: BASOPHILS ABSOLUTE AUTO 0.04 K/mm3 (0.00-0.23); BASOPHILS PERCENT AUTO 0 % (0-2); EOSINOPHILS PERCENT AUTO 0 % (0-6); Hematocrit 27.9 % (33.0-51.0); Hemoglobin 9.4 g/dL (11.5-16.0); IMMATURE GRAN ABSOLUTE AUTO 0.35 K/mm3 (0.00-0.10); IMMATURE GRAN PERCENT AUTO 3 % (0-1); LYMPHOCYTES ABSOLUTE AUTO 0.34 K/mm3 (0.84-5.20); LYMPHOCYTES PERCENT AUTO 3 % (21-46); MONOCYTES ABSOLUTE AUTO 0.25 K/mm3 (0.16-1.47); MONOCYTES PERCENT AUTO 2 % (4-13); Mean Corpuscular HGB 32.8 pg (26.0-34.0); Mean Corpuscular HGB Conc 33.7 g/dL (31.5-36.5); Mean Corpuscular Volume 97 fL (80-100); Mean Platelet Volume 12.3 fL (9.1-12.4); NEUTROPHILS ABSOLUTE AUTO 9.93 K/mm3 (1.96-9.15); NEUTROPHILS PERCENT AUTO 91 % (41-73); NRBC ABSOLUTE 0.25 K/mm3 (0.00-0.02); NRBC Auto 2.3 /100 WBC (0.0-0.2); RDW Coefficient Variation 18.5 % (11.7-14.2); Red Blood Cell Count 2.87 M/mm3 (3.80-5.20); White Blood Cell Count 10.91 K/mm3 (4.00-11.30)
[2021-07-27 04:13] LABS: Platelet Count 43 K/mm3 (150-400)
[2021-07-27 04:31] LABS: Anion Gap 8 mmol/L (6-16); Blood Urea Nitrogen 28 mg/dL (8-24); Bun/Creatinine Ratio 97.6 (12.0-20.0); CO2, Blood 26 mmol/L (21-32); Calcium, Blood 8.6 mg/dL (8.5-10.1); Chloride, Blood 108 mmol/L (98-108); Creatinine, Blood 0.29 mg/dL (0.40-1.00); Glomerular Filtration Rate >60 (60-); Glucose, Blood 180 mg/dL (70-99); Magnesium, Blood 1.7 mg/dL (1.6-2.4); Phosphorus, Blood 2.4 mg/dL (2.5-4.9); Sodium, Blood 142 mmol/L (136-145)
[2021-07-27 05:17] LABS: PCO2 Arterial 33.9 mmHg (35-45); PO2 Arterial 74.6 mmHg (80-100); pH Blood Arterial 7.53 (7.35-7.45)
--- NOTE | 2021-07-27 06:01 | NUR ---
SHIFT SUMMARY: PT REMAINS ON THE VENT ON SPONTANEOUS SETTINGS OF PS 10/5 30% AND IS CURRENTLY SATING 97%. SHE OPENS HER EYES TO SOUND BUT WOULD NOT TRACK. SHE WITHDRAWS TO PAIN, DOES NOT MOVE EXTREMITIES, AND DOES NOT FOLLOW COMMANDS. HER TREMORS SEEM MORE PRONOUNCED THIS SHIFT, ESPECIALLY IN THE LEFT ARM. HR HAS BEEN BTW 80-100 AND BP WNL. TMAX WAS 100.4 AND BLOOD CULTURES WERE DRAWN. FERREIRA REMAINS IN PLACE DRAINING CLEAR YELLOW URINE TO GRAVITY. OGT IN PLACE RUNNING TF AT GOAL W/ NO RESIDUALS. RECTAL TUBE CONTINUES IN PLACE DRAINING TO GRAVITY. WILL REPORT TO ONCOMING RN WHEN AVAILABLE.
--- NOTE | 2021-07-27 20:06 | NUR ---
ASSUME CARE: PT IS INTUBATED AND LYING IN BED W/ EYES CLOSED. SHE OPENS HER EYES TO SOUND AND SOMETIMES TRACKS BUT DOES NOT FOLLOW COMMANDS OR MOVE EXTREMITIES. TREMORS MORE PRONOUNCED THIS SHIFT IN BUE. VENT SETTINGS ARE 8/5 AT 30% AND VITALS ARE CURRENTLY STABLE. TEMP IS 99.5. FERREIRA IN PLACE DRAINING CLEAR YELLOW URINE TO GRAVITY. OGT INTACT RUNNING TF AT GOAL WITH NO RESIDUALS. RECTAL TUBE IN PLACE DRAINING BROWN STOOL TO GRAVITY. HER SKIN IS COOL, DRY, WITH GENERALIZED BRUISING, A SKIN TEAR TO THE RIGHT INNER THIGH, AND A STAGE 2 TO THE SACRUM. SEE SHIFT ASSESSMENT FOR DETAILS.
[2021-07-28 03:43] LABS: BASOPHILS ABSOLUTE AUTO 0.01 K/mm3 (0.00-0.23); BASOPHILS PERCENT AUTO 0 % (0-2); EOSINOPHILS PERCENT AUTO 0 % (0-6); Hematocrit 25.7 % (33.0-51.0); Hemoglobin 8.6 g/dL (11.5-16.0); IMMATURE GRAN ABSOLUTE AUTO 0.18 K/mm3 (0.00-0.10); IMMATURE GRAN PERCENT AUTO 2 % (0-1); LYMPHOCYTES ABSOLUTE AUTO 0.55 K/mm3 (0.84-5.20); LYMPHOCYTES PERCENT AUTO 6 % (21-46); MONOCYTES ABSOLUTE AUTO 0.32 K/mm3 (0.16-1.47); MONOCYTES PERCENT AUTO 4 % (4-13); Mean Corpuscular HGB 32.5 pg (26.0-34.0); Mean Corpuscular HGB Conc 33.5 g/dL (31.5-36.5); Mean Corpuscular Volume 97 fL (80-100); NEUTROPHILS ABSOLUTE AUTO 7.51 K/mm3 (1.96-9.15); NEUTROPHILS PERCENT AUTO 88 % (41-73); NRBC ABSOLUTE 0.12 K/mm3 (0.00-0.02); NRBC Auto 1.4 /100 WBC (0.0-0.2); RDW Coefficient Variation 18.8 % (11.7-14.2); RDW Standard Deviation 62.8 fL (35.1-46.3); Red Blood Cell Count 2.65 M/mm3 (3.80-5.20); White Blood Cell Count 8.57 K/mm3 (4.00-11.30)
[2021-07-28 03:46] LABS: Mean Platelet Volume 13.3 fL (9.1-12.4); Platelet Count 38 K/mm3 (150-400)
[2021-07-28 03:56] LABS: Albumin, Blood 1.9 g/dL (3.4-5.0); Anion Gap 7 mmol/L (6-16); Blood Urea Nitrogen 30 mg/dL (8-24); Bun/Creatinine Ratio 104.9 (12.0-20.0); CO2, Blood 28 mmol/L (21-32); Calcium, Blood 8.6 mg/dL (8.5-10.1); Chloride, Blood 109 mmol/L (98-108); Creatinine, Blood 0.29 mg/dL (0.40-1.00); Glomerular Filtration Rate >60 (60-); Glucose, Blood 149 mg/dL (70-99); Phosphorus, Blood 3.1 mg/dL (2.5-4.9); Potassium, Blood 3.9 mmol/L (3.5-5.5); Sodium, Blood 144 mmol/L (136-145)
--- NOTE | 2021-07-28 05:59 | NUR ---
SHIFT SUMMARY: NO ACUTE OVERNIGHT EVENTS. PT REMAINS INTUBATED ON VENT SETTINGS OF PS 8/5 @ 30%. VITALS STABLE T/O SHIFT. TMAX OF 99.5. SHE CONTINUES TO OPEN HER EYES TO SOUNDS, WILL SOMETIMES TRACK, BUT DOES NOT FOLLOW COMMANS OR MOVE EXTREMITIES. THE TREMORS SEEM WORSE W/ STIMULATION AND ARE NOT SEVERE THE START OF SHIFT. FERREIRA AND RECTAL TUBE BOTH CONTINUE IN PLACE AND ARE DRAINING TO GRAVITY. OGT STILL INTACT W/ TUBE FEEDS RUNNING AT GOAL. BLOOD CULTURES CAME BACK POSITIVE AND PLATELETS ARE 38 THIS MORNING; DR. KILPATRICK INFORMED. WILL REPORT TO ONCOMING RN WHEN AVAILABLE.
--- NOTE | 2021-07-28 13:57 | NUR ---
0700: SBAR FROM NIGHT RN. PT VSS. IVF VERIFIED. TF VERIFIED. SEE ASSESSMENT. 0800: TURN & REPOSITION Q 2 HRS. 1200: UPDATE TO SPOUSE OF PATIENT.
--- NOTE | 2021-07-28 15:06 | NUR ---
SHIFT SUMMARY NEURO: NO CHANGE. TREMOR CONTINUES WHILE AWAKE. TRACKS WHILE RN IS IN ROOM, NOT FOLLOWING COMMANDS. CARDIAC: MAP>60 THROUGHOUT SHIFT. AFEBRILE. FREQUENT UNIFOCAL PVCS. RESP: THROUGHOUT SHIFT, CONTINUES ON PS 8/5/30% WITH GOOD TOLERANCE AND SPO2 >96%. GI/: NO CHANGES. STABLE UOP. INTEG: SCDS ON THROUGHOUT SHIFT. TURNED Q2 ON EVEN HOURS. PSYCH: SPOUSE AT BEDSIDE DURING AFTERNOON.
--- NOTE | 2021-07-28 19:00 | NUR ---
ASSUME CARE: PT INTUBATED ON SPONT SETTING OF PS 8/5 30%. SHE OPENS HER EYES TO SOUND, SOMETIMES APPEARS TO TRACK, DOES NOT FOLLOW COMMANDS, AND DOES NOT MOVE EXTREMITIES. TREMORS NOTED TO BUE. VITAL ARE STABLE. TEMP FERREIRA IN PLACE DRAINING CLEAR YELLOW URINE TO GRAVITY AND SHOWS A TEMP OF 99.5. OGT INTACT RUNNING TF AT GOAL W/ NO RESIDUALS. RECTAL TUBE IN PLACE DRAINING BROWN STOOL TO GRAVITY. HER SKIN IS COOL AND DRY W/ BRUISING TO BUE AND A STAGE 2 ON THE SACRUM W/ INTACT FOAM DRESSING IN PLACE. NS TKO INFUSING TO YAJAIRA PICC. SEE SHIFT ASSESSMENT FOR DETAILS.
--- NOTE | 2021-07-28 23:00 | NUR ---
DR.YUN DR. ROBBINS AT BEDSIDE PERFORMING AN ASSESSMENT. HE STATES HE CAN PERFORM THE TRACH AT BEDSIDE TOMORROW AROUND 1730 AND TO D/C TF AT MIDNIGHT.
--- NOTE | 2021-07-29 06:45 | NUR ---
SHIFT SUMMARY: PT REMAINS INTUBATED AND VENT SETTINGS CHANGED TO ACVC 12/440/5/30%. VITALS STABLE OVERNIGHT. SHE APPEARS TO BE TRACKING MORE CONSISTENTLY BUT DOES NOT FOLLOW ANY COMMANDS AND DOES NOT MOVE EXTREMITIES. TREMOR CONTINUES TO BUE. FERREIRA AND RECTAL TUBE STILL IN PLACE DRAINING TO GRAVITY. OGT IS NOW CLAMPED AND TF WERE OFF SINCE MIDNIGHT. TMAX WAS 99.5. PLAN FOR TODAY IS FOR A ROSS W/ AT 1730. WILL REPORT TO ONCOMING RN WHEN AVAILABLE.
[2021-07-29 08:03] LABS: BASOPHILS ABSOLUTE AUTO 0.01 K/mm3 (0.00-0.23); BASOPHILS PERCENT AUTO 0 % (0-2); EOSINOPHILS PERCENT AUTO 0 % (0-6); Hematocrit 27.9 % (33.0-51.0); Hemoglobin 9.3 g/dL (11.5-16.0); IMMATURE GRAN ABSOLUTE AUTO 0.07 K/mm3 (0.00-0.10); IMMATURE GRAN PERCENT AUTO 1 % (0-1); LYMPHOCYTES ABSOLUTE AUTO 1.04 K/mm3 (0.84-5.20); LYMPHOCYTES PERCENT AUTO 13 % (21-46); MONOCYTES ABSOLUTE AUTO 0.33 K/mm3 (0.16-1.47); MONOCYTES PERCENT AUTO 4 % (4-13); Mean Corpuscular HGB 32.7 pg (26.0-34.0); Mean Corpuscular HGB Conc 33.3 g/dL (31.5-36.5); Mean Corpuscular Volume 98 fL (80-100); Mean Platelet Volume 11.7 fL (9.1-12.4); NEUTROPHILS ABSOLUTE AUTO 6.88 K/mm3 (1.96-9.15); NEUTROPHILS PERCENT AUTO 83 % (41-73); NRBC ABSOLUTE 0.13 K/mm3 (0.00-0.02); NRBC Auto 1.6 /100 WBC (0.0-0.2); Platelet Count 51 K/mm3 (150-400); RDW Coefficient Variation 18.8 % (11.7-14.2); RDW Standard Deviation 65.3 fL (35.1-46.3); Red Blood Cell Count 2.84 M/mm3 (3.80-5.20); White Blood Cell Count 8.33 K/mm3 (4.00-11.30)
[2021-07-29 08:28] LABS: Albumin, Blood 2.2 g/dL (3.4-5.0); Anion Gap 7 mmol/L (6-16); Blood Urea Nitrogen 26 mg/dL (8-24); Bun/Creatinine Ratio 98.9 (12.0-20.0); CO2, Blood 28 mmol/L (21-32); Calcium, Blood 8.8 mg/dL (8.5-10.1); Chloride, Blood 108 mmol/L (98-108); Creatinine, Blood 0.26 mg/dL (0.40-1.00); Glomerular Filtration Rate >60 (60-); Glucose, Blood 98 mg/dL (70-99); Phosphorus, Blood 2.9 mg/dL (2.5-4.9); Potassium, Blood 3.9 mmol/L (3.5-5.5); Sodium, Blood 143 mmol/L (136-145)
--- NOTE | 2021-07-29 18:37 | NUR ---
Tracheostomy procdure: 1740: 2mg ativan/10mg morphine given. 1742: 40mc/kg/min propofol rate gtt started. 1743: 50mg esteban given. 1746: Trach in no complications.
--- NOTE | 2021-07-29 18:49 | NUR ---
DOES NOT FOLLOW COMMANDS, VISUALLY TRACKS W/ CERTAIN STIMULI, PUPILS 5MM BRISK, INTERMITTANT COUGH REFLEX, NSR 80S, BP WNL, WEAK +1 PULSES, COARSE LUNGS CONTINUE VENT MOST OF DAY ACVC SETINGS, FERREIRA CLEAR YELLOW OUTPUT, RETAL TUBE PATENT MINIMAL OUTPUT TYPE 6/7, TRACHEOSTOMY PROCEDURE PLACED 1745 SEE NOTE, BP LOW D/T SEDATION, 1L NS BOLUS GIVEN, PROPOFOL FOR 6 HOURS STAARTING 1715 D/T MORGAN HALF/LIFE PER MD, [place] ROBLES PLACED PATENT ABLE TO USE, RESTART TUBE FEED AT GOAL, CONSULT TO MD YOUNG FOR PEG PLACEMENT COMPLETED.
--- NOTE | 2021-07-29 21:16 | NUR ---
ASSUMED CARE AT 1900 PT LAYING IN BED WITH NEW TRACH, VENT SETTINGS AC/VC 12/440/5/30%; SKIN AROUND TRACH SWOLLEN WITH MILD OOZING. CURRENTLY SEDATED WITH 10MCG/KG/MIN OF PROPOFOL; PLAN TO WEAN OFF SEDATION AT 0000; MINIMALLY OPENS EYES OCCATIONALLY; MINIMALLY REACTIVE TO NOXIOUS STIMULI; WEAK COUGH; NO GAG. HR 60'S. SBP 90-100; LEVOPHED AVAILABLE IF MAP <65. VHP RESTARTED VIA DOBHOFF AT 55ML/HR (GOAL) WITH 30ML WATER FLUSHES Q4HR. RECTAL TUBE AND FERREIRA IN PLACE AND DRAINING TO GRAVITY. SEE SHIFT ASSESSMENT FOR FULL ASSESSMENT.
--- NOTE | 2021-07-29 21:22 | NUR ---
UPDATE PT MAP CONT <65 AND SBP 70'S; LEVOPHED STARTED AT 5MCG/MIN; PT RESPONDING WELL. AT 2044 PT HR DECREASED TO THE 30'S SUDDENLY; PULSE FOUND. PROPOFOL THAN STOPPED. HR SLOWLY INCREASING, NOW IN THE 40'S. WILL CONT TO MONITOR.
[2021-07-30 03:40] LABS: BASOPHILS ABSOLUTE AUTO 0.01 K/mm3 (0.00-0.23); BASOPHILS PERCENT AUTO 0 % (0-2); EOSINOPHILS PERCENT AUTO 0 % (0-6); Hematocrit 26.3 % (33.0-51.0); Hemoglobin 8.8 g/dL (11.5-16.0); IMMATURE GRAN ABSOLUTE AUTO 0.12 K/mm3 (0.00-0.10); IMMATURE GRAN PERCENT AUTO 1 % (0-1); LYMPHOCYTES ABSOLUTE AUTO 1.09 K/mm3 (0.84-5.20); LYMPHOCYTES PERCENT AUTO 11 % (21-46); MONOCYTES ABSOLUTE AUTO 0.32 K/mm3 (0.16-1.47); MONOCYTES PERCENT AUTO 3 % (4-13); Mean Corpuscular HGB 32.4 pg (26.0-34.0); Mean Corpuscular HGB Conc 33.5 g/dL (31.5-36.5); Mean Corpuscular Volume 97 fL (80-100); Mean Platelet Volume 11.3 fL (9.1-12.4); NEUTROPHILS ABSOLUTE AUTO 8.41 K/mm3 (1.96-9.15); NEUTROPHILS PERCENT AUTO 85 % (41-73); NRBC ABSOLUTE 0.25 K/mm3 (0.00-0.02); NRBC Auto 2.5 /100 WBC (0.0-0.2); Platelet Count 56 K/mm3 (150-400); Red Blood Cell Count 2.72 M/mm3 (3.80-5.20); White Blood Cell Count 9.95 K/mm3 (4.00-11.30)
[2021-07-30 04:29] LABS: Albumin, Blood 2.1 g/dL (3.4-5.0); Anion Gap 8 mmol/L (6-16); Blood Urea Nitrogen 29 mg/dL (8-24); Bun/Creatinine Ratio 103.9 (12.0-20.0); CO2, Blood 26 mmol/L (21-32); Calcium, Blood 8.5 mg/dL (8.5-10.1); Chloride, Blood 110 mmol/L (98-108); Creatinine, Blood 0.28 mg/dL (0.40-1.00); Glomerular Filtration Rate >60 (60-); Glucose, Blood 144 mg/dL (70-99); Magnesium, Blood 1.8 mg/dL (1.6-2.4); Phosphorus, Blood 3.3 mg/dL (2.5-4.9); Potassium, Blood 3.6 mmol/L (3.5-5.5); Sodium, Blood 144 mmol/L (136-145)
--- NOTE | 2021-07-30 06:32 | NUR ---
END OF SHIFT SUMMARY PT CONT TO BE ON VENT VIA TRACH WITH SETTINGS AC/VC 12/440/5/30%; TRACH OOZING HAS SLOWED BUT DRESSING CHANGED X3 DUE TO BLEEDING; SWELLING NOTED AROUND TRACH. PT REACTIVE TO VERBAL STIMULI AND WILL MINIMALLY TRACK WITH EYES BUT DOES NOT FOLLOW DIRECTIONS AND NO PURPOSEFUL MOVEMENT NOTED; PROPOFOL HAS BEEN OFF SINCE 2057. AFTER PROPOFOL TURNED OFF HR SLOWLY INCREASED TO 70'S. SBP 100-140'S; LEVOPHED TITRATED TO OFF; LEVOPHED OFF SINCE 324. VHP INFUSING VIA DOBHOFF AT 55ML/HR (GOAL) WITH 30ML WATER FLUSHES Q4HR; RECTAL TUBE IN PLACE WITH LITTLE OUTPUT. FERREIRA IN PLACE AND DRAINING TO GRAVITY; 650ML URINE OUTPUT. WILL REPORT TO AM RN WHEN AVAILABLE.
--- NOTE | 2021-07-30 09:02 | NUR ---
ASSUMED CARE OF PATIENT: VENTED ON TRACH COLLAR SATS WNL, TUBE FEEDS CONTINUED 55ML/HR, VSS, FERREIRA DRAINING, PT NO DISTRESS.
--- NOTE | 2021-07-30 17:17 | NUR ---
07/30/21 1717 STEPHANIE CROWE History, Chart, Medications and Allergies reviewed before start of procedure. 3-LEAD EKG REVIEWED WITH PHYSICIAN PRIOR TO START OF PROCEDURE. MONITOR INTACT WITH CONTINUOUS PULSE OXIMETRY AND INTERMITTENT BP. PT TRACHED. GENERAL SEDATION GIVEN BY DR. BUSTILLO.
--- NOTE | 2021-07-30 17:57 | NUR ---
MORE SOMNOLENT THIS SHIFT, DOES NOT FOLLOW COMMANDS, TRACKS VISUALLY STIMULATING OBJECTS SUCH COLORED PAPER, DOES NOT TRACK FINGERS/HANDS/NURSE, SOME WITHDRAWING TO PAIN, PUPILS 5MM BRISK, NSR 70S, BP WNL, WEAK +1 PULSES, VENTED ON THE TRACH CONTINUED INTERMITTANT ACVC AND SPONTANEOUS MODES, MODERATE SECRETIONS WITH SOME BLOOD TINGED SECRETIONS, COARSE LUNGS, PEG TUBE PLACED 1645, ABLE TO USE PEG TUBE AT 2100, TF OFF SINCE 1100, AUDIBLE BOWELS, RECTAL TUBE CONTINUED IMPROVEMENT IN LOOSE STOOL MINIMAL OUTPUT HOWEVER, FERREIRA DRAINS CLEAR/ERNESTO OUTPUT, Q2 TURNS COMPLETED FOR SKIN INTEGRITY.
--- NOTE | 2021-07-30 19:14 | NUR ---
ASSUMPTION OF CARE ASSUMED CARE OF PATIENT AT 1900, REPORT RECEIVED FROM VERONICA CHAVEZ. PT VENTED VIA TRACH, VENT SETTINGS ACVC /01/20% SPO2 99%. TF ON HOLD DUE TO PEG TUBE PLACEMENT TODAY. PEG SITE DRESSING CDI. ACTIVE BOWEL TONES. RECTAL TUBE DRAINING TO GRAVITY. FERREIRA PATENT AND DRAINING TO GRAVITY. LUNGS COARSE T/O. HR 70'S SINUS ON MONITOR, SBP 115'S. NS TKO INFUSING. PT WITH VERY MINIMAL WITHDRAW FROM PAINFUL STIMULI. PUPILS EQUAL AND REACTIVE. PT NOT OPENING EYES OR FOLLOWING COMMANDS AT THIS TIME.
[2021-07-31 04:43] LABS: Hematocrit 24.9 % (33.0-51.0); Hemoglobin 8.5 g/dL (11.5-16.0); Mean Corpuscular HGB 33.2 pg (26.0-34.0); Mean Corpuscular HGB Conc 34.1 g/dL (31.5-36.5); Mean Corpuscular Volume 97 fL (80-100); Mean Platelet Volume 12.1 fL (9.1-12.4); NRBC ABSOLUTE 0.18 K/mm3 (0.00-0.02); NRBC Auto 2.3 /100 WBC (0.0-0.2); Platelet Count 59 K/mm3 (150-400); RDW Coefficient Variation 19.6 % (11.7-14.2); RDW Standard Deviation 64.9 fL (35.1-46.3); Red Blood Cell Count 2.56 M/mm3 (3.80-5.20); White Blood Cell Count 7.89 K/mm3 (4.00-11.30)
[2021-07-31 05:31] LABS: BAND PERCENT MAN 7 % (0-8); BASOPHILS PERCENT MAN 0 % (0-2); EOSINOPHILS PERCENT MAN 0 % (0-6); LYMPHOCYTES ABSOLUTE MAN 0.71 K/mm3 (0.84-5.20); LYMPHOCYTES PERCENT MAN 9 % (21-46); MONOCYTES ABSOLUTE MAN 0.78 K/mm3 (0.16-1.47); MONOCYTES PERCENT MAN 10 % (4-13); NEUTROPHILS ABSOLUTE MAN 6.39 K/mm3 (1.96-9.15); SEG NEUTROPHILS PERCENT MAN 74 % (41-73); TOTAL CELLS COUNTED 1002
--- NOTE | 2021-07-31 05:41 | NUR ---
SHIFT SUMMARY PT CONTINUES ON VENT VIA TRACH, CURRENT SETTINGS ACVC 12/440/5/30%. LUNGS REMAINS COARSE T/O, SMALL AMOUNT OF KINCAID, BLOOD STREAKED SECRETIONS VIA TRACH. PT OPENINGS EYES WHEN REPOSITIONED, NOT TRACKING OR FOLLOWING COMMANDS. CONTINUES WITH VERY WEAK WITHDRAW FROM PAINFUL STIMULI, OTHERWISE NO MOVEMENT NOTED IN ANY EXTREMITIES. RECTAL TUBE WITH MINIMAL OUTPUT THIS SHIFT. FERREIRA DRAINING CLEAR YELLOW URINE TO GRAVITY, 700ML'S OUT THIS SHIFT. PT WITH ACTIVE BOWEL TONES. VHP RESTARTED AT 2100 VIA PEG TUBE AT 20ML/HR, GRADUALLY INCREASED RATE TO 40ML/HR WITH 30 Q4H WATER FLUSHES. MINIMAL RESIDUALS SINCE RESTARTING TF. SBP WITH MAP >65, HR 60-80'S. NS TKO CURRENTLY INFUSING.
--- NOTE | 2021-07-31 09:35 | NUR ---
ASSUMED CARE OF PATIENT: MINIMAL PAIN RESPONSE, BASELINE TREMORS CONTINUE, PUPILS 5MM BRISK, NOT FOLLOWING COMMANDS, TF AT 40, RESIDUAL 30CC, INCREASED TF TO GOAL AT 55ML/HR, FERREIRA PATENT, MINIMAL RECTAL OUTPUT, VSS ON VCAC VENT/TRACH.
[2021-07-31 10:19] LABS: PCO2 Arterial 34.1 mmHg (35-45); pH Blood Arterial 7.51 (7.35-7.45)
[2021-07-31 12:53] LABS: PCO2 Arterial 36.1 mmHg (35-45); PO2 Arterial 78.8 mmHg (80-100)
--- NOTE | 2021-07-31 17:36 | NUR ---
SOMNOLENT THIS SHIFT, SOME EVIDENCE OF TRACKING TO CERTAIN STIMULI, NOT FOLLOWING COMMANDS, PUPILS 5MM BRISK, TREMORS CONTINUE WORSE R SIDE INTERMITTANT, NSR 70/80S, WEAK PULSES, BP WNL, COARSE LUNGS, PT TOELRATED TRACH COLLAR MOST OF DAY 35% FIO2 NO DISTRESS W/ SATS WNL, RECTAL TUBE CONTINUES MINIMAL OUTPUT, AUDIBLE BOWELS, FERREIRA CONTINUES CLEAR YELLOW OUTPUT, Q2 TURNS COMPLETED FOR SKIN INTEGRITY, CARE MANAGMENT MEETING WITH AND DAUGHTER, CONSIDERING LOCAL CARE FACILITY PT IS NOW TOLERATING TRACH COLLAR.
--- NOTE | 2021-07-31 19:14 | NUR ---
ASSUMED CARE OF PT AT 1900, REPORT RECEIVED FROM VERONICA CHAVEZ. PT ON TRACH COLLAR, FIO2 35%, SPO2 97%. PT CONTINUES NOT FOLLOWING COMMANDS OR DOING ANY PURPOSEFUL MOVEMENT, STILL WITH WEAK WITHDRAW FROM PAINFUL STIMULI. PEG TUBE TO LUQ RUNNING VHP AT GOAL RATE OF 55 ML/HR, RESIDUALS OF 50ML'S THIS SHIFT. SCANT BLOODY/KINCAID SECRETIONS VIA TRACH. PT WITH WEAK COUGH. RECTAL TUBE AND FERREIRA DRAINING TO GRAVITY. HR 90'S SINUS ON MONITOR, SBP 120'S, AFEBRILE. NS TKO INFUSING. LUNGS CLEAR WITH DIM BASES. ACTIVE BOWEL TONES.
[2021-08-01 03:58] LABS: BASOPHILS ABSOLUTE AUTO 0.01 K/mm3 (0.00-0.23); BASOPHILS PERCENT AUTO 0 % (0-2); EOSINOPHILS PERCENT AUTO 0 % (0-6); Hematocrit 25.1 % (33.0-51.0); Hemoglobin 8.4 g/dL (11.5-16.0); IMMATURE GRAN PERCENT AUTO 2 % (0-1); LYMPHOCYTES ABSOLUTE AUTO 0.98 K/mm3 (0.84-5.20); LYMPHOCYTES PERCENT AUTO 15 % (21-46); MONOCYTES ABSOLUTE AUTO 0.25 K/mm3 (0.16-1.47); MONOCYTES PERCENT AUTO 4 % (4-13); Mean Corpuscular HGB 32.8 pg (26.0-34.0); Mean Corpuscular HGB Conc 33.5 g/dL (31.5-36.5); Mean Corpuscular Volume 98 fL (80-100); Mean Platelet Volume 10.8 fL (9.1-12.4); NEUTROPHILS ABSOLUTE AUTO 5.04 K/mm3 (1.96-9.15); NEUTROPHILS PERCENT AUTO 79 % (41-73); NRBC ABSOLUTE 0.19 K/mm3 (0.00-0.02); Platelet Count 74 K/mm3 (150-400); RDW Coefficient Variation 19.9 % (11.7-14.2); RDW Standard Deviation 66.4 fL (35.1-46.3); Red Blood Cell Count 2.56 M/mm3 (3.80-5.20); White Blood Cell Count 6.38 K/mm3 (4.00-11.30)
[2021-08-01 05:27] LABS: Anion Gap 7 mmol/L (6-16); Blood Urea Nitrogen 25 mg/dL (8-24); Bun/Creatinine Ratio 92.6 (12.0-20.0); CO2, Blood 30 mmol/L (21-32); Calcium, Blood 8.5 mg/dL (8.5-10.1); Chloride, Blood 108 mmol/L (98-108); Creatinine, Blood 0.27 mg/dL (0.40-1.00); Glomerular Filtration Rate >60 (60-); Glucose, Blood 139 mg/dL (70-99); Magnesium, Blood 1.8 mg/dL (1.6-2.4); Phosphorus, Blood 1.9 mg/dL (2.5-4.9); Potassium, Blood 4.1 mmol/L (3.5-5.5); Sodium, Blood 145 mmol/L (136-145)
--- NOTE | 2021-08-01 06:22 | NUR ---
SHIFT SUMMARY PT REMAINED ON TRACH COLLAR T/O SHIFT, FIO2 DECREASED FROM 35% TO 26%, SPO2 >90%. LUNGS CLEAR WITH DIM BASES, SCANT AMOUNT OF KINCAID BLOOD STREAKED SECRETIONS VIA TRACH. PT OPENS EYES SPONTANEOUSLY, TRACKED ONCE, DID NOT FOLLOW ANY COMMANDS. SLIGHT WITHDRAW FROM PAINFUL STIMULI, NO OTHER EXTREMITIES MOVEMENT NOTED. PT HAS TREMORS WHILE AWAKE. ACTIVE BOWEL TONES. PT TOLERATING TF VIA PEG TUBE, MINIMAL RESIDUALS ALL SHIFT. RECTAL TUBE AND FERREIRA CONTINUE DRAINING TO GRAVITY. VITALS STABLE THIS SHIFT.
--- NOTE | 2021-08-01 07:45 | NUR ---
patient opens eyes, no track, unable to follow directions or make needs known, withdraws from painful stimulus, tremors visible, repositioned, coccyx drsg cdi, pulliam to gravity, no leakage from the rectal tube, vss, appears in no distress, wctm
--- NOTE | 2021-08-01 08:45 | NUR ---
Dr Rowe, Dr Lund, and Dr Rush in to see patient. Discuss that pt has been on trach collar currently receiving 26% FiO2. Providers state that pt is acceptable for PCU status.
--- NOTE | 2021-08-01 16:58 | NUR ---
daughter in room visiting
--- NOTE | 2021-08-01 17:18 | NUR ---
patient unable to make needs known, does not track staff in the room, w/d from pain slowly, faint pulses, no purposeful movements, unable to follow directions or use the yes/no signs. trach tube 27%, ls- clear dim in the bases, sats 98%. sbp 110-130, heart rate 80-120, map 70-90. jevity 1.2 started for a goal rate of 65, now at 25, hyperactive bt, rectal tube wokring, minimal leakage, temp pulliam to gravity, temp 99.5, treated with reposition, cool partial bath, fan and tylenol now at 99.1. coccyx drsg in place, ladonna pic, will relay to pm rn, wctm
--- NOTE | 2021-08-01 17:36 | NUR ---
reported to dr lind output for the day is 220, he reported to address it tomorrow
--- NOTE | 2021-08-01 20:48 | NUR ---
ASSUMPTION OF CARE ASSUMED CARE OF PT AT 1900, REPORT RECEIVED FROM DALY CHAVEZ. PT AWAKE IN BED, SOME TRACKING NOTED. NOT FOLLOWING COMMANDS. WEAK WITHDRAW FROM PAINFUL STIMULI IN ALL EXTREMITIES, NO OTHER MOVEMENT NOTED. PT CONTINUES HAVING TREMORS. TOLERATING TF AT GOAL RATE VIA PEG TUBE, MINIMAL RESIDUALS. RECTAL TUBE AND FERREIRA DRAINING TO GRAVITY. VITALS STABLE. NS TKO INFUSING.
--- NOTE | 2021-08-02 06:27 | NUR ---
SHIFT SUMMARY PT REMAINS ON TRACH COLLAR, FIO2 26%. SPONTANEOUS EYE OPENING, OCCASIONAL TRACKING. CONTINUES TO HAVE TREMORS, NO PURPOSEFUL MOVEMENT NOTED. JEVITY RUNNING AT GOAL RATE OF 65 ML/HR WITH MINIMAL RESIDUALS T/O SHIFT. TWO UNMEASURABLE URINES THIS SHIFT DUE TO LEAKING FERREIRA, FERREIRA REPLACED THIS AM. RECTAL TUBE CONTINUES TO DRAIN TO GRAVITY. NS TKO INFUSING.
[2021-08-02 08:48] LABS: Source, Urine Catheter
[2021-08-02 09:06] LABS: Appearance, Urine Clear (Clear); Bilirubin, Urine Neg (Neg); Blood, Urine 1+ (Neg); Color, Urine Yellow (P-Yellow); Glucose Qualitative, Urine Neg (Neg); Ketones, Urine Neg (Neg); Leukocyte Esterase, Urine Neg (Neg); Nitrite, Urine Neg (Neg); Protein, Urine Neg (Neg); Urobilinogen, Urine NORM (Normal)
[2021-08-02 09:28] LABS: Bacteria Few /hpf; Red Blood Cells, Urine 0-2 /hpf (0-2); Squamous Epithelial Cells Not Seen /hpf (Few); Yeast/Fungi Urine Many /hpf
[2021-08-02 11:22] LABS: Anion Gap 8 mmol/L (6-16); Blood Urea Nitrogen 35 mg/dL (8-24); Bun/Creatinine Ratio 85.4 (12.0-20.0); CO2, Blood 29 mmol/L (21-32); Calcium, Blood 8.9 mg/dL (8.5-10.1); Chloride, Blood 107 mmol/L (98-108); Creatinine, Blood 0.41 mg/dL (0.40-1.00); Glomerular Filtration Rate >60 (60-); Glucose, Blood 149 mg/dL (70-99); Potassium, Blood 4.2 mmol/L (3.5-5.5); Sodium, Blood 144 mmol/L (136-145)
--- NOTE | 2021-08-02 18:08 | NUR ---
PT REMAINS ON TRACH COLLAR 26%FIO2. OPENS EYES TO VOICE, ABLE TO TRACK INTERMITTENTLY. DOES NOT FOLLOW COMMANDS OR SHOW PURPOSEFUL MOVEMENT. TREMORS REMAIN. MINIMAL SANGINOUS DRAINAGE FROM TRACH SITE. INNER CANNULA CHANGED TODAY. SHE WAS TAKEN OFF TELEMETRY TODAY PER DR. SANTIAGO. VSS, SEE VITAL CHART. TF JEVITY RUNNING AT GOAL OF 65/HR. FERREIRA REPLACED AGAIN THIS MORNING DUE TO LEAKING. 2500CC UOP THIS SHIFT. RECTAL TUBE DRAINING BROWN STOOL.
--- NOTE | 2021-08-02 20:00 | NUR ---
ASSUMED CARE OF PT AT 1915. REPORT RECEIVED. PT PRSENTS IN BED. TRACH TO MASK AT 26 % FIO2. MAINTAINS SATURATIONS > 90 PERCENT. NO S/S PAIN OR DISTRESS. DOES OPEN EYES TO CONTACT. DOES NOT FOLLOW ANY COMMANDS. IS TREMOROUS WHICH PER REPORT IS CONSISTANT WITH HOW PATIENT HAS BEEN. TEMP 97.9 RESPIRATORY THERAPY IN ROOM PERFORMS SUCTIONING, TRACH CARE, AND ORAL CARE. PT TOLERATES THIS WELL. TRACH SECRETIONS BLOOD TINGED. [place] PATENT TO BROWN LIQUID STOOL. WILL REVIEW CHART AND PLAN OF CARE FOR THIS PT.
--- NOTE | 2021-08-03 06:30 | NUR ---
PT HAS HAD A RESTFUL NIGHT. DOES AWAKEN TO ANY CARE. DOES NOT FOLLOW COMMANDS, AND IS NONVERBAL. NO SEIZURE ACTIVITY TO NOTE. [place] PATENT TO LOOSE BROWN STOOL. WILL CONTINUE TO MONITOR PT, AND WILL REPORT OFF TO ONCOMING RN.
--- NOTE | 2021-08-03 18:10 | NUR ---
NO SIGNIFICANT CHANGES THIS SHIFT. ON TRACH COLLAR 26%. PATIENT OPENS EYES BUT HAS NO PURPOSFUL MOVEMENT. PT CONTINUES TO HAVE NYSTAGMUS AND TREMORS. SUCTIONED MODERATE THICK KINCAID SECRETIONS FROM TRACH. VSS. RECTAL TUBE REMOVED STOOL IS NO LONGER LIQUID.
--- NOTE | 2021-08-03 20:33 | NUR ---
ASSUMED CARE OF PT AT 1915. REPORT RECEIVED. PT PRESENTS IN BED WITH TRACH TO MASK. 26 PERCENT FIO2. NO RESPIRATORY DISTRESS AT THIS TIME. INCONTINENT TO STOOL. CLEANED AND REPOSITIONED PT. NONVERBAL. DOES OPEN EYES TO CONTACT. NO PURPOSEFUL RESPONSES. UNABLE TO ASSIST WITH TURNS OR CARE.
--- NOTE | 2021-08-04 06:30 | NUR ---
PT HAS HAD STABLE NIGHT. TOLERATES Q 2 HOUR TURNS. HAS BEEN INCONTINENT OF SOFT BROWN STOOL. TRACH COLLAR TO FIO2 26 PERCENT PER TRACH COLLAR. HAVE SUCTIONED TRACH WITH RETURN OF MODERATE AMOUNT OF LIGHT BROWN/KINCAID SECRETIONS. PT HAS MAINTAINED > 90 PERCENT SATURATION WITH OXYGEN. WILL CONTINUE TO MONITOR PT AND WILL REPORT OFF TO ONCOMING RN.
[2021-08-04 10:55] LABS: Hematocrit 26.4 % (33.0-51.0); Hemoglobin 8.5 g/dL (11.5-16.0); Mean Corpuscular HGB 32.4 pg (26.0-34.0); Mean Corpuscular HGB Conc 32.2 g/dL (31.5-36.5); Mean Corpuscular Volume 101 fL (80-100); Mean Platelet Volume 10.9 fL (9.1-12.4); NRBC ABSOLUTE 0.28 K/mm3 (0.00-0.02); NRBC Auto 5.5 /100 WBC (0.0-0.2); Platelet Count 103 K/mm3 (150-400); RDW Coefficient Variation 19.6 % (11.7-14.2); RDW Standard Deviation 69.4 fL (35.1-46.3); Red Blood Cell Count 2.62 M/mm3 (3.80-5.20); White Blood Cell Count 5.07 K/mm3 (4.00-11.30)
--- NOTE | 2021-08-04 15:37 | NUR ---
PT HAS BEEN AWAKE AND PLEASANTLY CONFUSED TODAY. FREQUENTLY YELLS "HELLO" AND WHEN ASKED WHAT SHE NEEDS, SHE SAYS THINGS LIKE "CAN YOU HELP ME GIVE MY THE WALKER FOR THE [employer]" AND "I NEED HELP PUTTING THE POOL COVER ON THE BOAT." SHE IS NOT PULLING AT LINES OR TRYING TO GET OUT OF BED.
--- NOTE | 2021-08-04 18:23 | NUR ---
NO SIGNIFICANT EVENTS THIS SHIFT. 26% FIO2 ON TRACH COLLAR. MODERATE KINCAID THICK SECRETIONS FROM TRACH - DISCUSSED WITH DR. SANTIAGO. AT BEDSIDE. TURNS Q2.
--- NOTE | 2021-08-05 17:37 | NUR ---
SHIFT SUMMARY: NO ACUTE CHANGES T/OUT SHIFT. PT OPENS EYES SPONTANEOUSLY, REMAINS ALERT WHILE STAFF IN ROOM PROVIDING CARE. TREMORS CONTINUE, NO PURPOSEFUL MOVEMENTS. EDEMA NOTED TO FACE, HANDS, FEET. EXTREMITIES PLACED ON PILLOWS. TRACH COLLAR CONTINUES AT 26% FIO2, KINCAID SECRETIONS SUCTIONED NEEDED. JEVITY 1.2 CONTINUES AT GOAL RATE OF 65 ML/HR. PT W/SMALL BM DURING BEDBATH. INDWELLING FERREIRA PATENT, DRAINING TO GRAVITY. ORAL CARE AND SUCTIONING PERFORMED Q4H. PT SPOUSE TO BEDSIDE DURING VISITING HOURS, DR SANTIAGO TO BEDSIDE FOR UPDATE. WILL CONTINUE TO MONITOR AND TREAT ACCORDINGLY UNTIL CHANGE OF SHIFT.
--- NOTE | 2021-08-05 18:11 | NUR ---
PT REMAINS IN ICU. INTERACTIONS WITH PT'S AUTUMN ARE BRIEF, CONTINUE TO OFFER SUPPORTIVE VISITS. REMAINS OPTIMISTIC, WELL UNREALISTIC GOALS FOR PT. HE HAS RECENTLY ASKED TO HAVE PT RESTARTED ON CHEMO AND/OR RADIATION THERAPY, WELL BRINGING IN SUPPPLEMENTS HE WOULD LIKE TO GIVE HER VIA HER NEW PEG TUBE, BUT TELLS HIM HE ISN'T COMFORTABLE PRESCRIBING NON-APPROVED MEDICATIONS FOR PT TO TAKE IN THE HOSPITAL. WILL REMAIN AVAILABLE FOR THERAPEUTIC AND SUPPORTIVE VISITS FOR FAMILY. I CONTINUE TO SPEAK TO THE PT DAILY, BUT SHE NO LONGER TRACKS ME WITH HER EYES PREVIOUSLY.
--- NOTE | 2021-08-06 18:02 | NUR ---
SUMMARY PT IS UNRESPONSIVE. SOMETIMES OPENS EYE'S BUT DOES NOT CORRELATE WITH STIMULATION. NO TRACKING WITH EYE'S. NO VOLUNTARY MOVEMENT OF EXTREMITIES. HAS TREMOR IN UPPER EXTREMITIES. TRACH TO TRACH COLLAR. PT WAS CHANGED TO MEDICAL STATUS TODAY. DR. ROBBINS CAME IN TONIGHT AND CHANGED TRACH OUT. PT HAS SMALL OPEN AREA UNDER L SIDE OF TRACH THAT IS FROM PRESSURE OF TRACH ON SKIN. DIFFICULT TO GET AREA PADDED DUE TO ANATOMY OF NECK. NO OTHER CHANGES.
--- NOTE | 2021-08-07 17:42 | NUR ---
SHIFT SUMMARY NO ACUTE CHANGES THIS SHIFT. 6.[address], 40% FIO2 VIA TRACH COLLAR. LUNGS COARSE. SMALL AMOUNT OF THICK YELLOW SECRETIONS. COUGH/GAG REFLEX PRESENT. PT OPENS EYES SPONTANEOUSLY. DOES NOT FOLLOW COMMANDS. OPENS MOUTH WHEN PERFORMING ORAL CARE BUT DOES NOT ON COMMAND. OCCASIONALLY APPEARS TO TRACK FACE WHEN CLOSE BUT CANNOT FOLLOW LIGHT OR FINGER. FAVIO. TUBE FEEDS CHANGED TO BOLUS, GRAVITY FED PER DIETARY. TOLERATING WELL. 2 SMALL PASTY BMS THIS SHIFT. FERREIRA PATENT, DRAINING CLEAR YELLOW URINE TO GRAVITY. PICC TO E, SALINE LOCKED. DRESSING C/D/I. WILL CONTNIUE TO MONITOR UNTIL REPORT TO ONCOMING NURSE.
--- NOTE | 2021-08-08 06:06 | NUR ---
END OF SHIFT SUMMARY: Pt had an uneventful night, resting comfortably in bed. No signs of pain, still unable to follow commands or track. PERRLA at 6, brisk. Grimaces to pain and also have BUE shaking when stimulated or repositioned in bed. Pt on trach collar, saturations in the mid 90's during spot checking, has weak productive cough, moderate yellow white thick secretions from trach tube. Trach care done and pressure wound was noted on left collar bone of pt where trach collar rests - mepilex in place now. Inner cannula was also changed today. BP stable and WNL during spot checking. Pt has orders for med no tele. Edematous +2 on BUE and LE. Had 1x small BM, bolus feeding per order. Q2 hour turns down to maintain skin integrity.
--- NOTE | 2021-08-08 18:45 | NUR ---
NON RESPONSIVE, WITHDRAWS FROM PAIN, NO PURPOSEFUL MOVEMENTS, NOT TRACKING STAFF, TRACH TUBE 35% 10 LITERS, LS-RHONCHI CLEARED WITH INLINE SUCTION, DIMINISHED LS. SBP 130-150S, ARM TREMORS, NO TELE. HYPOACTIVE BT, BOLUS FEEDINGS Q3H, TOLERATING WELL, DM TODAY, FERREIRA TO GRAVITY YELLOW WITH SEDAMENT, FOAM DRESSING ON SACRUM CHNAGED, VISITED TODAY, WILL RELAY TO PM RN, WCTM
--- NOTE | 2021-08-09 06:47 | NUR ---
End of Shift Summary: No major changes or significant events overnight. Pt still has weak cough with moderate amount of thick yellow sections from trach tube. Bilateral breath sounds coarse but gets better after suctioning. Still unable to follow commands or track when eyes are opened. 1x BM. Trach care done. q2 hour turns overnight.
--- NOTE | 2021-08-09 15:38 | NUR ---
recieived a call from pt . He has been speaking with his daughter. They have been discussing hospice. He is also considering takin her home. 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 Wanted to know whats available for caregiver support. Wanted to know if hospice house available. He is still holding on to her improving his hope is that she will improve and graduate off of hospice. We discussed the benefits of hospice for her and his family. Careful conversation so he feels supported. We agreed to put in hospice consult ask care professional about options.We also diacussed how having her in [facility] gives him the opportunity to be her loving not caregiver. will continue to support him he is going to needs a lot of chaplian support. He is bereft from the stress of failed treatements.
--- NOTE | 2021-08-09 18:27 | NUR ---
NO CHANGES, PATIENT TRACH TUBE 10L 3%, DIMINSHED LUNG SOUNDS, UNABLE TO MAKE NEEDS KNOWN, OPENS EYES SPONTANOUSLY, DOES NOT TRACK STAFF IN ROOM OR , PASSIVE ROM, FAINT PULSES, PLAN FOR ADULT HOME OR HOME WITH HOSPICE, REPOSIIONED Q2H, WILL RELAY TO PM RN, WCTM
--- NOTE | 2021-08-09 19:30 | NUR ---
ASSUMPTION OF CARE PT IS MED STATUS. VSS, NO S/S OF DISTRESS NOTED AT TIME OF ASSUMPTION OF CARE. PT CONTINUES TO RESPOND ONLY TO PAIN WITH NO PURPOSEFUL RESPONSE.
--- NOTE | 2021-08-10 06:39 | NUR ---
SHIFT SUMMERY: NO ACUTE CHANGES OVERNIGHT. VSS, TOLERATING BOLUS TUBE FEEDING WELL. 40% TRACH COLLAR, PEG TUBE, FERREIRA CATHETER ALL INTACT AND PATENT.
--- NOTE | 2021-08-10 09:01 | NUR ---
ASSUMED CARE AT 0800. PT OPENS EYES TO VOICE AND MINOR STIMULATION, NOT TRACKING OR ABLE TO FOLLOW COMMANDS. TREMORS. ON TRACH COLLAR 40% FIO2. LUNGS COARSE BUT CLEAR WITH SUCTION. SEE SHIFT ASSESSMENT FOR ASSESSMENT DETAILS.
--- NOTE | 2021-08-10 17:34 | NUR ---
NO SIGNIFICANT EVENTS OR CHANGES THIS SHIFT. NEURO STATUS UNCHANGED FROM MY MORNING ASSESSMENT. TRACH CARE PERFORMED AND INNER CANNULA CHANGED. SUCTIONING SMALL-MODERATE WHITE/YELLOW SPUTUM FROM TRACH. TURNS Q2. BOLUS FEEDINGS ADMINISTERED.
--- NOTE | 2021-08-10 17:51 | NUR ---
Brief supportive visit with . will continue to support him in dischareg plan hope is hospice.
--- NOTE | 2021-08-11 06:08 | NUR ---
SHIFT SUMMERY: NO ACUTE CHANGES THROUGHOUT THE NIGHT. TRACH COLLAR AT 40% FIO2 W/#6 SHILEY INTACT AND PATENT, PEG TUBE INTACT AND PATENT, FERREIRA CATHATER INTACT PATENT AND DRAINING BELOW THE LEVEL OF THE BLADDER. SMALL BM OVERNIGHT. PEG DRESSING CHANGED, PT WAS GIVEN FULL BATH W/CATH AND PERICARE COMPLETE. PICC LINE INTACT, FLUSHES WELL AND CAPS CHANGED. NO CHANGES IN NEUROLOGICAL STATUS. NO ACUTE S/S OF DISTRESS THROUGHOUT THE NIGHT.
--- NOTE | 2021-08-11 08:47 | NUR ---
REPORT GIVEN BY CHARGE NURSE ALISTAIR, TO KATHY MORENO. PT TRANSFERRED WITH AIDE AND RT.
--- NOTE | 2021-08-11 14:22 | NUR ---
IN TO VISIT
--- NOTE | 2021-08-11 17:29 | NUR ---
SUMMARY PT AWAKE IN BED WITH SPOUSE AT THE BEDSIDE, PT DOES NOT COMMUNICATE, DOES NOT TRACK OR FOLLOW COMMANDS, PUPILS ARE LARGE AND SLUGGISH, PT REMAINS ON TRACH COLLAR AT 40% FIO2, OCC NEEDS TRACH SUCTIONED FOR THICK YELLOW SECRETIONS, PT NASIMA PEG TUBE FEEDS WELL, VSS, NO ACUTE CHANGES
--- NOTE | 2021-08-12 04:58 | NUR ---
PT HAS REMAINED CALM THROUGHOUT THE NOC SHIFT. SHE IS TOLERATING THE BOLUS FEEDINGS AND MEDICATIONS VIA PEG TUBE. HER TRIPLE LUMEN PICC HAS GREAT BLOOD RETURN AND IS FLUSHING WELL. HER TRACH HAS BEEN SUCTIONED ONCE THIS SHIFT. WE WILL CONTINUE TO MONITOR HER THROUGHOUT THE REMAINDER OF THE SHIFT.
--- NOTE | 2021-08-12 14:19 | NUR ---
Call from regarding dishcharge issues. Updated home health aide caregiver and chandan SIEGEL and hospice.
--- NOTE | 2021-08-12 18:55 | NUR ---
SHIFT SUMMARY PT HAS REMAINED NON-RESPONSIVE BUT DOES SPONTANEOUSLY OPEN HER EYES. PT HAS REQUIRIED FREQUENT REPOSITIONING. PT HAS TOLERATED HER TUBE FEEDINGS WELL. FERREIRA CATHETER DRAINING. PT MINIMALLY OPENS HER MOUTH FOR ORAL CARE. FAMILY PROVIDED WITH UPDATE REGARDING PT. VSS. WILL CONTINUE TO MONITOR.
--- NOTE | 2021-08-13 03:55 | NUR ---
PATIENT HAS HAD AN UNEVENTFUL NIGHT. Q2 HR REPOSIONING AND CHANGES. MOUTH PERFOMED AFTER DEEP SUCTIONING. PATIENT HAS BEEN UNRESPONSIVE. AWAITING DC TO [facility] [place].
--- NOTE | 2021-08-13 13:05 | NUR ---
AT 1230 PT REPOSITIONED AND ORAL CARE GIVEN. RT AT BEDSIDE AND THIS RN ASSISTED WITH TRACH SUCTION. PT TOLERATED WELL. WILL CTM
--- NOTE | 2021-08-13 16:20 | NUR ---
ORAL CARE AND TRACH SUCTION COMPLETED AT 1430, SMALL AMT OF THICK SECRETIONS. 02 CUFF APPLIED AFTER SUCTIONING. PT TOLERATED WELL.
--- NOTE | 2021-08-13 18:00 | NUR ---
SPOKE WITH PALLIATIVE CARE RN AT THIS TIME. PT VOICED CONCERN TO THIS RN FOR PT TO HAVE A UA AND LAB DRAWS BEFORE DISCHARGE, ALTHOUGH THERE IS NO CLINICAL NEED FOR THIS AT THIS TIME, PALLIATIVE CARE RN PLANS TO CALL TO DISCUSS.
--- NOTE | 2021-08-13 18:03 | NUR ---
SUMMARY: NO ACUTE CHANGE TODAY. PT ALERT, OPENS EYES AND TRACKS. NON VERBAL AT BASELINE. VSS. PT TURNED Q2 AND RECEIVED BED BATH. 355ML OF BOLUS TUBE FEEDINGS GIVEN X4 TODAY WITH 70ML FLUSH OF WATER BEFORE AND AFTER EACH FEED. PT APPEARED TO TOLERATE WELL, NO ABD DISTENTION NOTED. TRACH SUCTIONING AND CARE COMPLETED PRN, SEE RT NOTES, OTHERWISE HUMIDIFIED [address] FERREIRA PATENT AND DRAINING. ADULT [facility] [employer] TO BE HERE SOMETIME TONIGHT TO HAVE TRACH AND PEG TUBE EDUCATION, PLAN IS FOR PT TO BE DC'D TO [facility] THURSDAY AT 0900, PER DC PHOTOLITHOGRAPHER. PT SON IN ROOM AT THIS TIME, WILL CTM AND REPORT TO NOC RN.
--- NOTE | 2021-08-13 18:41 | NUR ---
Pt's left a voicemail today regarding tests he would like done prior to his , the pt's discharge. I didn't see any new tests ordered or note regarding the request so I did follow up with pt's . He verbalized feeling anger over "no one getting back to him sooner about this". He stated it was his understanding when pt left the hospital that labs would all be repeated to make sure she is stable. He states this was the answer he received from an "ICU nurse". I immediately understood the problem; as pt is now on medical floor, and has been for some time. Her condition is stable. And while an ICU discharge may include reviewing labs prior, a medical floor discharge would not. I did attempt to explain this difference to him, as well as the simple fact that we don't run multiple labs and other tests on someone with no clinical sign or symptom indicating a reason to check. However, he does want some of these checked again anyway. I did agree to check with the hospitalist and will touch base with him again tomorrow. Discussed with Dr. Webster, who does not believe there are any indication for any further testing at this time, but will make final determination tomorrow. The pt's did apologize at the end of the call for his statements left on my voicemail, where he stated the pt would NOT be leaving the hospital without rechecking labs. He states he would not, in fact attempt to hold up her discharge over it.
--- NOTE | 2021-08-14 04:08 | NUR ---
SHIFT SUMMARY ADMITTED FOR PNEUMONIA/SEPTIC SHOCK. LIMITED CODE - NO CPR. TRACH IN PLACE WITH HEATED AIR. STOMA CLEANED THIS SHIFT. INNER CANNULA CHANGED THIS SHIFT, BANDAGES CHANGED. FERREIRA IN PLACE & PATENT. PICC LINE IN RUE. SHE IS NPO. PEG TUBE IN PLACE FOR BOLUS FEEDINGS & MEDS. PLAN IS FOR PLACEMENT TO [facility] ON THURSDAY. SHE IS UNRESPONSIVE, Q 2 TURNS. NO NEW CONCERNS THIS SHIFT.
[2021-08-14 16:14] LABS: BASOPHILS ABSOLUTE AUTO 0.03 K/mm3 (0.00-0.23); BASOPHILS PERCENT AUTO 0 % (0-2); EOSINOPHILS PERCENT AUTO 0 % (0-6); Hematocrit 30.5 % (33.0-51.0); Hemoglobin 9.3 g/dL (11.5-16.0); IMMATURE GRAN ABSOLUTE AUTO 0.33 K/mm3 (0.00-0.10); IMMATURE GRAN PERCENT AUTO 4 % (0-1); LYMPHOCYTES ABSOLUTE AUTO 0.92 K/mm3 (0.84-5.20); LYMPHOCYTES PERCENT AUTO 10 % (21-46); MONOCYTES ABSOLUTE AUTO 0.45 K/mm3 (0.16-1.47); MONOCYTES PERCENT AUTO 5 % (4-13); Mean Corpuscular HGB 30.9 pg (26.0-34.0); Mean Corpuscular HGB Conc 30.5 g/dL (31.5-36.5); Mean Corpuscular Volume 101 fL (80-100); Mean Platelet Volume 9.6 fL (9.1-12.4); NEUTROPHILS ABSOLUTE AUTO 7.62 K/mm3 (1.96-9.15); NEUTROPHILS PERCENT AUTO 82 % (41-73); NRBC ABSOLUTE 0.26 K/mm3 (0.00-0.02); NRBC Auto 2.8 /100 WBC (0.0-0.2); Platelet Count 202 K/mm3 (150-400); RDW Coefficient Variation 18.2 % (11.7-14.2); RDW Standard Deviation 65.1 fL (35.1-46.3); Red Blood Cell Count 3.01 M/mm3 (3.80-5.20); White Blood Cell Count 9.35 K/mm3 (4.00-11.30)
[2021-08-14 16:34] LABS: Alanine Aminotransfer (ALT/SGP 97 U/L (12-78); Albumin/Globulin Ratio 0.5 (0.8-1.8); Alk Phos 145 U/L (50-136); Anion Gap 3 mmol/L (6-16); Aspartate Aminotrans (AST/SGOT 39 U/L (12-37); Bilirubin, Total 0.4 mg/dL (0.1-1.0); Blood Urea Nitrogen 26 mg/dL (8-24); Bun/Creatinine Ratio 100.8 (12.0-20.0); CO2, Blood 35 mmol/L (21-32); Calcium, Blood 8.3 mg/dL (8.5-10.1); Chloride, Blood 98 mmol/L (98-108); Creatinine, Blood 0.26 mg/dL (0.40-1.00); Free Thyroxine 1.24 ng/dL (0.70-1.60); Globulin, Blood 3.7 g/dL (2.2-4.0); Glomerular Filtration Rate >60 (60-); Glucose, Blood 217 mg/dL (70-99); Potassium, Blood 4.5 mmol/L (3.5-5.5); Sodium, Blood 136 mmol/L (136-145); Total Protein, Blood 5.7 g/dL (6.4-8.2)
--- NOTE | 2021-08-14 17:40 | NUR ---
pt has been unresponsive t/o day. does occationally track very little with eyes. did suction with trach attachment today as needed t/o day. in today to visit. did call dr to come see him, as dr requested. we are expecting d/c tomorrow in am. no new concerns noted. feeding with kangaroo pump. bed in low position, call lite n reach, bed alarm on for safety
--- NOTE | 2021-08-14 21:45 | NUR ---
CHANGED INNER CANULA
--- NOTE | 2021-08-15 04:07 | NUR ---
SHIFT SUMMARY PT CONTINUES TO BE UNRESPONSIVE. NO ACUTE CHANGES TO STATUS. TRACH IN PLACE WITH HEATED AIR. INNER CANULA CHANGED, STOMA CLEANED, AND BANDAGE REPLACED. SKIN AROUND STOMA IS RED, WILL PASS THAT ON TO ONCOMING RN. FERREIRA CATHETER PATENT AND DRAINING YELLOW URINE. Q 2 HOUR TURNS. WILL CONTINUE TO MONITOR PT AND WILL SUCTION NECESSARY.
[2021-08-15] MEDS ORDERED: DEXA4 PT (07:09)
[2021-08-15] MEDS ORDERED: ACET325 PT (07:12)
[2021-08-15] MEDS ORDERED: ALBU2.5V5 INH (07:12)
[2021-08-15] MEDS ORDERED: BISA10S PR (07:13)
[2021-08-15] MEDS ORDERED: LEVETIRACETAM1000 M1 PO (07:17)
[2021-08-15] MEDS ORDERED: DULCOLAX400 MG/5 M PO (07:18)
[2021-08-15] MEDS ORDERED: ARTIFICIAL TEAR15 M2 BOTHEYES (07:19)
[2021-08-15] MEDS ORDERED: VISBIOME 112.51 EACH PO (07:19)
--- NOTE | 2021-08-15 09:31 | NUR ---
Patient was a [facility] patient who was transferred to [facility] on 07/08/2021 due to aspiration into airway. Patient is to discharge today with resumption of home health orders. However, patient's recertification came due during patient's admission. As such patient will require a new home health face to face. Gathered supporting documentation for referral (face sheet, discharge order, med list, H&P, discharge summary, and most recent PT assessment) and faxed to [facility] for review. No further interventions required. Ailin Gregory Referral Liaison
== END 2021-08-15 09:09 | disposition home health service (06) | DRG 4 ==
LOC: ER 18:39 → ICUE 07-08 01:15 → ICUW 07-08 01:15 → ICUE 07-08 02:02 → MEDS 08-11 08:37
PROVIDERS: Family Medicine; Hospitalist; Internal Medicine; Internal Medicine Critical Care Medicine; Student in an Organized Health Care Education/Training Program; ADMIT Internal Medicine
PROC: 5A1955Z Respiratory Ventilation, Greater than 96 Consecutive Hours (ICD-10-PCS; 2021-07-07)
PROC: 0BH18EZ Insertion of Endotracheal Airway into Trachea, Via Natural or Artificial Opening Endoscopic (ICD-10-PCS; 2021-07-07)
PROC: 02HV33Z Insertion of Infusion Device into Superior Vena Cava, Percutaneous Approach (ICD-10-PCS; 2021-07-07)
PROC: 3E033XZ Introduction of Vasopressor into Peripheral Vein, Percutaneous Approach (ICD-10-PCS; 2021-07-07)
PROC: 0B113F4 Bypass Trachea to Cutaneous with Tracheostomy Device, Percutaneous Approach (ICD-10-PCS; principal; 2021-07-29)
PROC: 0DH63UZ Insertion of Feeding Device into Stomach, Percutaneous Approach (ICD-10-PCS; 2021-07-30)
DX: A41.59 Other Gram-negative sepsis (principal); R65.21 Severe sepsis with septic shock; J15.0 Pneumonia due to Klebsiella pneumoniae; J69.0 Pneumonitis due to inhalation of food and vomit; G93.41 Metabolic encephalopathy; G93.6 Cerebral edema; G92.8 Other toxic encephalopathy; J96.21 Acute and chronic respiratory failure with hypoxia; C78.02 Secondary malignant neoplasm of left lung; C78.01 Secondary malignant neoplasm of right lung; C79.31 Secondary malignant neoplasm of brain; C79.51 Secondary malignant neoplasm of bone; E46 Unspecified protein-calorie malnutrition; E87.2 Acidosis; E87.0 Hyperosmolality and hypernatremia; E87.3 Alkalosis; E44.1 Mild protein-calorie malnutrition; E83.39 Other disorders of phosphorus metabolism; E16.2 Hypoglycemia, unspecified; E87.6 Hypokalemia; D69.59 Other secondary thrombocytopenia; E83.51 Hypocalcemia; C50.919 Malignant neoplasm of unspecified site of unspecified female breast; F32.A Depression, unspecified; E03.9 Hypothyroidism, unspecified; Z88.2 Allergy status to sulfonamides; Z88.1 Allergy status to other antibiotic agents; Z98.51 Tubal ligation status; Z98.890 Other specified postprocedural states; Z90.89 Acquired absence of other organs; Z28.82 Immunization not carried out because of caregiver refusal; Z68.27 Body mass index [BMI] 27.0-27.9, adult
CPT/HCPCS: 31720; 36415; 36430; 36556; 36569; 36600; 36620; 51702; 70450; 70490; 71045; 80048; 80053; 80069; 80076; 80202; 81001; 82140; 82330; 82803; 82947; 83605; 83735; 83935; 84100; 84439; 84443; 85025; 85027; 86900; 86901; 87040; 87070; 87077; 87086; 87186; 87205; 93005; 93010; 94003; 94640; 94760; 94761; 94762; 95819; 99291-25; 99292; A9270; C1751; C8929; C9113; J0330; J0610; J0690; J0696; J1100; J1450; J1650; J1720; J1940; J1953; J2060; J2250; J2270; J2370; J2543; J2704; J3010; J3370; J3475; J3480; J7030; J7040; J7050; J7060; J7070; J7120; P9035; P9053; Q9957; U0004

== ENCOUNTER 2021-08-18 03:17 | Inpatient (IN) | payer OTHER ==
[~2021-08-18] VITALS: Ht 170.2 cm; Wt 68.4 kg
[~2021-08-18 03:17] MED LIST changes: +ACET325 PT; +ALBU2.5V5 INH; +ANAS1 PT; -ANASTROZOLE1 M2 PO; +ARTIFICIAL TEAR15 M2 BOTHEYES; +BISA10S PR; +DEXA4 PT; +DULCOLAX400 MG/5 M PT; +LEVETIRACETAM1000 M1 PT; -Lexapro5 MG PO; +Lexapro5 MG PT; -SYNTHROID150 MC1 PO; +SYNTHROID150 MC1 PT; +VISBIOME 112.51 EACH PO
[2021-08-18 03:32] LABS: BASOPHILS PERCENT AUTO 1 % (0-2); EOSINOPHILS PERCENT AUTO 0 % (0-6); Hematocrit 33.2 % (33.0-51.0); Hemoglobin 11.2 g/dL (11.5-16.0); IMMATURE GRAN ABSOLUTE AUTO 0.55 K/mm3 (0.00-0.10); IMMATURE GRAN PERCENT AUTO 3 % (0-1); LYMPHOCYTES ABSOLUTE AUTO 2.29 K/mm3 (0.84-5.20); LYMPHOCYTES PERCENT AUTO 12 % (21-46); MONOCYTES PERCENT AUTO 4 % (4-13); Mean Corpuscular HGB 33.4 pg (26.0-34.0); Mean Corpuscular HGB Conc 33.7 g/dL (31.5-36.5); Mean Corpuscular Volume 99 fL (80-100); Mean Platelet Volume 9.2 fL (9.1-12.4); NEUTROPHILS ABSOLUTE AUTO 14.93 K/mm3 (1.96-9.15); NEUTROPHILS PERCENT AUTO 80 % (41-73); NRBC Auto 3.2 /100 WBC (0.0-0.2); Platelet Count 303 K/mm3 (150-400); RDW Coefficient Variation 17.8 % (11.7-14.2); RDW Standard Deviation 61.9 fL (35.1-46.3); Red Blood Cell Count 3.35 M/mm3 (3.80-5.20); White Blood Cell Count 18.67 K/mm3 (4.00-11.30)
[2021-08-18 03:50] LABS: Alanine Aminotransfer (ALT/SGP 112 U/L (12-78); Albumin, Blood 2.3 g/dL (3.4-5.0); Albumin/Globulin Ratio 0.6 (0.8-1.8); Alk Phos 161 U/L (50-136); Anion Gap 8 mmol/L (6-16); Aspartate Aminotrans (AST/SGOT 52 U/L (12-37); Bilirubin, Total 0.5 mg/dL (0.1-1.0); Blood Urea Nitrogen 25 mg/dL (8-24); Bun/Creatinine Ratio 113.6 (12.0-20.0); CO2, Blood 30 mmol/L (21-32); Calcium, Blood 8.6 mg/dL (8.5-10.1); Chloride, Blood 92 mmol/L (98-108); Creatinine, Blood 0.22 mg/dL (0.40-1.00); Globulin, Blood 3.8 g/dL (2.2-4.0); Glomerular Filtration Rate >60 (60-); Glucose, Blood 177 mg/dL (70-99); Potassium, Blood 4.4 mmol/L (3.5-5.5); Sodium, Blood 130 mmol/L (136-145); Total Protein, Blood 6.1 g/dL (6.4-8.2); Troponin I <0.015 ng/mL (0.000-0.040)
[2021-08-18 04:08] LABS: Source, Urine Catheter
[2021-08-18 04:21] LABS: Bilirubin, Urine Neg (Neg); Blood, Urine 5+ (Neg); Glucose Qualitative, Urine Neg (Neg); Ketones, Urine 1+ (Neg); Leukocyte Esterase, Urine 3+ (Neg); Nitrite, Urine Pos (Neg); Protein, Urine 3+ (Neg); Specific Gravity, Urine 1.025 (1.003-1.022); Urobilinogen, Urine NORM (Normal)
[2021-08-18 04:22] LABS: Appearance, Urine Turbid (Clear); Color, Urine Yellow (P-Yellow)
[2021-08-18 04:36] LABS: Amorphous Heavy (0-Heavy); Bacteria Many /hpf; Calcium Oxalate Crystals Few /hpf; Red Blood Cells, Urine Rare /hpf (0-2); Squamous Epithelial Cells Few /hpf (Few); White Blood Cells, Urine TNTC /hpf (0-5)
[2021-08-18 04:49] LABS: Influenza A, PCR NEGATIVE (NEGATIVE); Influenza B, PCR NEGATIVE (NEGATIVE); Resp Syncytial Virus, PCR NEGATIVE (NEGATIVE); SARS-Cov-2 (COVID-19) PCR, MMC NEGATIVE (NEGATIVE)
--- NOTE | 2021-08-18 06:28 | NUR ---
TOA APPROXIMATELY 0508 AT AROUND 0630 PT STARTED DESATTING DOWN TO LOW 80's CALLED RT FOR MORE ASSISTANCE. PT IS STILL MAINTAINING SATURATIONS BETWEEN 83% - 84%, RT IS STILL AT BEDSIDE. LUNG SOUNDS ARE COARSE AND WHEEZING BILATERALLY, VERY WEAK COUGH, WAS ABLE TO SUCTION THICK YELLOW KINCAID SECRETIONS OUT OF TRACH. TRACH CARE WAS ALSO DONE, MEPILEX WAS PLACED ON PRESSURE WOUND UNDER TRACH. 1X BM, HYPOACTIVE BOWEL SOUNDS. PULSES ARE WEAK AND DOPPLER ON PEDAL PULSES. PT DOES NOT FOLLOW COMMANDS, TRACK OR RESPOND TO ANY PAINFUL STIMULI. PERRLA 5, BRISK.
[2021-08-18 07:07] LABS: Base Excess Venous -2.3 mmol/L; Bicarbonate Venous 23.6 mmol/L (24.0-30.0); PCO2 Venous 24.8 mmHg (38-42); PO2 Venous 66.2 mmHg (38-42)
[2021-08-18 07:08] LABS: pH Blood Venous 7.53 (7.34-7.37)
--- NOTE | 2021-08-18 07:19 | NUR ---
Received report from Yeny CHAVEZ. Patient supine in bed with head slightly elevated. She is on vent with 6.0 shiley trach. Settings 380/18/100/14 and sats 80 to low 90s and rates 30's. New trach placed in ER prior to admit. She has bilateral hand IV's that are infusing Abx currently, lab was just here to do repeat lactic that was 3.0 earlier. She has 16 Fr. temp pulliam with concentrated urine and temp of 100. She has peg left abd, and dressing new. ABG draw with critical values and will report off. She hasd foam dressing to right wrist for skin tear. She is non responsive and non verbal , but does open eyes with little to none tracking.
--- NOTE | 2021-08-18 09:30 | NUR ---
Dr Wynn attempting art line and then i will place PICC. Patient regardless of where cuff is on has MAP and not accurate. Vent settings are 380/20/100/14 and sats mid 90%'s. No changes in Neuro status. Called and Gave update and then Dr Wynn called for update and consents fo procedure. Foam dressing right below trach on left side of chest.
--- NOTE | 2021-08-18 12:15 | NUR ---
Art line placed right AC and PICC JENIFER. Levophed started for systoloic's in the 60's. LR bolus given with minimal results. Levophed running at 10 mcg/min. Vent settings down to 380/20/60/12 and sats >90%. Lactic acid continues to rise and is currently 3.8. AM meds given through PEG and flushed.
--- NOTE | 2021-08-18 14:22 | NUR ---
Levophed increased to 15 mcg/min and have vasopressin on standby. Vent settings at 380/18/40/10 and sats >90%, no other changes. at bedside. No neuro changes with patient from am note.
--- NOTE | 2021-08-18 16:00 | NUR ---
Levophed continues at 15 mcg/min for systolic 110-130's. Vent settings also remain the same at 380/18/40/10 and sats >90%. still in room with patient. No neuro changes since am note. Art line and PICC line dressings C/D/I and working well.
--- NOTE | 2021-08-18 18:00 | NUR ---
Took to CT without difficulty for PE study. Vent setting 320/20/40/10 and sats >90%/ Levophed at 15 mcg/min, LR at 75 ml/hr. No neuro changes and still opens eyes and looks back and forth with no purposeful tracking.
--- NOTE | 2021-08-18 19:15 | NUR ---
Assumed care. Report received from adi CHAVEZ. Pt in bed, ventilated via trach. Vent settings: AC/VC 20/320/10/30%. Pt has ART line in YAJAIRA, PICC in JENIFER. IV pump settings: Levophed 15 mcg/min, LR 75 ml/hr, NS 10 ml/hr. Myers catheter in place. Stable vital signs. No acute needs noted, will continue to monitor.
[2021-08-19 03:38] LABS: PCO2 Arterial 34.1 mmHg (35-45); PO2 Arterial 63.7 mmHg (80-100); pH Blood Arterial 7.46 (7.35-7.45)
[2021-08-19 04:04] LABS: Hematocrit 27.1 % (33.0-51.0); Hemoglobin 9.5 g/dL (11.5-16.0); Mean Corpuscular HGB 34.8 pg (26.0-34.0); Mean Corpuscular HGB Conc 35.1 g/dL (31.5-36.5); Mean Corpuscular Volume 99 fL (80-100); Mean Platelet Volume 9.4 fL (9.1-12.4); NRBC ABSOLUTE 0.24 K/mm3 (0.00-0.02); NRBC Auto 1.2 /100 WBC (0.0-0.2); Platelet Count 205 K/mm3 (150-400); RDW Coefficient Variation 18.6 % (11.7-14.2); RDW Standard Deviation 62.6 fL (35.1-46.3); Red Blood Cell Count 2.73 M/mm3 (3.80-5.20); White Blood Cell Count 19.24 K/mm3 (4.00-11.30)
[2021-08-19 04:23] LABS: BAND PERCENT MAN 32 % (0-8); BASOPHILS PERCENT MAN 0 % (0-2); EOSINOPHILS PERCENT MAN 0 % (0-6); LYMPHOCYTES ABSOLUTE MAN 1.92 K/mm3 (0.84-5.20); LYMPHOCYTES PERCENT MAN 10 % (21-46); METAMYELOCYTE ABSOLUTE MAN 0.38 K/mm3 (0.00-0.00); METAMYELOCYTE PERCENT MAN 2 % (0-0); MONOCYTES ABSOLUTE MAN 0.38 K/mm3 (0.16-1.47); MONOCYTES PERCENT MAN 2 % (4-13); MYELOCYTE ABSOLUTE MAN 0.19 K/mm3 (0.00-0.00); MYELOCYTE PERCENT MAN 1 % (0-0); NEUTROPHILS ABSOLUTE MAN 16.35 K/mm3 (1.96-9.15); SEG NEUTROPHILS PERCENT MAN 53 % (41-73); TOTAL CELLS COUNTED 100
[2021-08-19 04:24] LABS: Magnesium, Blood 2.2 mg/dL (1.6-2.4)
[2021-08-19 04:34] LABS: Alanine Aminotransfer (ALT/SGP 63 U/L (12-78); Albumin, Blood 1.6 g/dL (3.4-5.0); Albumin/Globulin Ratio 0.5 (0.8-1.8); Alk Phos 111 U/L (50-136); Anion Gap 9 mmol/L (6-16); Aspartate Aminotrans (AST/SGOT 26 U/L (12-37); Bilirubin, Total 0.6 mg/dL (0.1-1.0); Blood Urea Nitrogen 23 mg/dL (8-24); Bun/Creatinine Ratio 62.3 (12.0-20.0); CO2, Blood 27 mmol/L (21-32); Chloride, Blood 104 mmol/L (98-108); Creatinine, Blood 0.37 mg/dL (0.40-1.00); Globulin, Blood 3.5 g/dL (2.2-4.0); Glomerular Filtration Rate >60 (60-); Glucose, Blood 141 mg/dL (70-99); Potassium, Blood 3.7 mmol/L (3.5-5.5); Sodium, Blood 140 mmol/L (136-145); Total Protein, Blood 5.1 g/dL (6.4-8.2)
--- NOTE | 2021-08-19 06:30 | NUR ---
Shift summary. Pt continues in bed, ventilated via trach. Vent settings unchanged this shift: AC/VC 20/320/10/30%. Pt has Art line YAJAIRA, PICC JENIFER. IV pump settings: Levophed 13 mcg/min, LR 75 ml/hr, NS 10 ml/hr. Peg tube in place, clamped. Myers catheter in place, 1800 mls out this shift. See shift assessment for further details. Will continue to monitor and report off to dayshift RN.
--- NOTE | 2021-08-19 08:26 | NUR ---
CARE ASSUMED OF PT AT 0700. PT SLEEPING ON [facility] VENT 20/320/30%/10, NO SEDATION. PT OPENED EYES AND TRACKED WHEN I WALKED AROUND THE ROOM. PT HAS WEAK COUGH, GAG. UNABLE TO FOLLOW COMMANDS, BITES DOWN W ORAL CARE. PT DID NOT TRACK WITH EYES WHEN DR SANDERS IN ROOM. FULL UPDATE GIVEN TO BOTH DR HSIEH AND DR SANDERS. LEVOPHED DECREASED FROM 13MCG TO 10MCG. RW BP CORRELATES W A-LINE TO R AXILLARY.
--- NOTE | 2021-08-19 09:44 | NUR ---
RT CALLED SEVERAL TIMES TO ASSIST W VENT ALARM FOR LOW TV. TV 150-230 CONSISTENTLY. PT'S SATS HAVE NOT DROPPED W LOW TV. PT DOES NOT APPEAR TO BE IN DISTRESS. LEVOPHED DECREASED TO 6MCG.
[2021-08-19 10:15] LABS: Vancomycin, Trough 36.1 ug/mL (5.0-10.0)
--- NOTE | 2021-08-19 11:28 | NUR ---
TV DROPPED TO 0-150. SATS DROPPED TO 86-90% RT CALLED. TV IMPROVE WHEN FORWARD PRESSURE APPLIED TO TRACH. DR ARCINIEGA CALLED AND UPDATED. DR ARCINIEGA WILL BE IN SHORTLY TO SEE PT. BEDSIDE BRONCH READY. PT'S CALLED AND UPDATED. PT MAINTAINING SATS >90%.
--- NOTE | 2021-08-19 12:01 | NUR ---
BEDSIDE BRONCH COMPLETED BY DR ARCINIEGA. TRACH IS IN GOOD POSITION BUT POSITIONAL. PT MAINTAINING TV >200, SATS >90%, FIO2 INCREASED TO 60% POST BEDSIDE BRONCH. LEVOPHED HAD BEEN OFF, RESTARTED AT 3MCG. NO SEDATION NEEDED FOR PROCEDURE, PT NASIMA WELL.
--- NOTE | 2021-08-19 16:15 | NUR ---
AT BEDSIDE, UPDATED. LEVOPHED TITRATED DOWN TO 1MCG. PEEP HAD BEEN TITRATED DOWN TO 8 EARLIER. FIO2 AT 40%. HEMATOMA POSSIBLY FROM PRESSURE NOTED TO LEFT NECK, SILVER DOLLAR SIZED WITH SMALL AMT OF BLOOD. AREA CLEANED AND DRSG APPLIED. PT MAINTAINING TV'S. TUBE FEEDS STARTED TO PEG PER ORDERS. JEVITY 1.5 STARTED AROUND 1500 AT 25CC/HR.
--- NOTE | 2021-08-19 17:26 | NUR ---
PEEP DECREASED TO [address] ARCINIEGA, OF PT CONTINUES TO DO WELL, POSSIBLE TRACH COLLAR TRIAL PLANNED FOR TOMORROW. PT HAS DONE WELL OVERALL TODAY. PT AFEBRILE, LEVOPHED DOWN TO 1MCG, TUBE FEEDS STARTED.
--- NOTE | 2021-08-19 19:10 | NUR ---
Assumed care. Report received from adi CHAVEZ. Pt in bed, ventilated via trach. Vent settings: AC/VC 20/320/5/40%. Pt has R/axillary ART line in place, JENIFER PICC, IV access in R/hand. IV pump settings: Levophed 1 mcg/min, LR 75 ml/hr, NS 10 ml/hr. Peg tube in place, tube feed running at 25 ml/hr. Myers catheter in place. VS stable. No acute needs noted, will continue to monitor.
[2021-08-19 21:27] LABS: Vancomycin, Random 21.8 ug/mL
[2021-08-20 04:41] LABS: Hematocrit 23.1 % (33.0-51.0); Hemoglobin 7.3 g/dL (11.5-16.0); Mean Corpuscular HGB 31.6 pg (26.0-34.0); Mean Corpuscular HGB Conc 31.6 g/dL (31.5-36.5); Mean Corpuscular Volume 100 fL (80-100); Mean Platelet Volume 10.1 fL (9.1-12.4); NRBC ABSOLUTE 0.06 K/mm3 (0.00-0.02); NRBC Auto 0.8 /100 WBC (0.0-0.2); Platelet Count 141 K/mm3 (150-400); RDW Coefficient Variation 18.3 % (11.7-14.2); RDW Standard Deviation 66.7 fL (35.1-46.3); Red Blood Cell Count 2.31 M/mm3 (3.80-5.20); White Blood Cell Count 7.89 K/mm3 (4.00-11.30)
[2021-08-20 04:59] LABS: Anion Gap 5 mmol/L (6-16); Blood Urea Nitrogen 20 mg/dL (8-24); Bun/Creatinine Ratio 77.8 (12.0-20.0); CO2, Blood 30 mmol/L (21-32); Chloride, Blood 108 mmol/L (98-108); Creatinine, Blood 0.26 mg/dL (0.40-1.00); Glomerular Filtration Rate >60 (60-); Glucose, Blood 90 mg/dL (70-99); Magnesium, Blood 1.9 mg/dL (1.6-2.4); Phosphorus, Blood 2.6 mg/dL (2.5-4.9); Potassium, Blood 3.2 mmol/L (3.5-5.5); Sodium, Blood 143 mmol/L (136-145); Vancomycin, Random 18.5 ug/mL
[2021-08-20 05:05] LABS: BAND PERCENT MAN 19 % (0-8); BASOPHILS PERCENT MAN 0 % (0-2); EOSINOPHILS ABSOLUTE MAN 0.07 K/mm3 (0.00-0.68); EOSINOPHILS PERCENT MAN 1 % (0-6); LYMPHOCYTES ABSOLUTE MAN 0.31 K/mm3 (0.84-5.20); LYMPHOCYTES PERCENT MAN 4 % (21-46); MONOCYTES ABSOLUTE MAN 0.31 K/mm3 (0.16-1.47); MONOCYTES PERCENT MAN 4 % (4-13); NEUTROPHILS ABSOLUTE MAN 7.17 K/mm3 (1.96-9.15); SEG NEUTROPHILS PERCENT MAN 72 % (41-73); TOTAL CELLS COUNTED 100
--- NOTE | 2021-08-20 06:13 | NUR ---
Shift summary. Pt continues in bed, ventilated via trach, vent settings: AC/VC 20/320/5/30%. R/axillary ART line in place, JENIFER PICC in place, IV R/hand. IV pump settings: Levophed 2 mcg/min, LR 75 ml/hr, NS 10 ml/hr. Peg tube in place, tube feed at 35 ml/hr. Myers catheter in place. VS stable throughout shift. See shift assessment for further details. Will continue to monitor and report off to dayshift RN.
--- NOTE | 2021-08-20 09:57 | NUR ---
CARE OF PT ASSUMED AT 0700. PT ON [facility] VENT 20/320/30%/5. PT MINIMALLY RESPONSIVE; AT BASELINE COMPARED TO LAST ADMIT. OPENS EYES SPONT AT TIMES, TRACTS AT TIMES. AT TIMES NOT RESPONSIVE TO PAIN, TOUCH, VOICE. ABSENT MOVEMENT TO ALL 4 EXT. ABSENT PLANTAR REFLEX. WEAK COUGH, GAG. VERY LABILE BP, WHEN AWAKE PT IS NORMAL TO HTN, WHEN ASLEEP PT IS HYPOTENSIVE W MAP <60. LEVOPHED AT 1MCG. TUBE FEEDS AT 55CC/HR, GOAL 65CC. THICK YELLOW DRAINAGE NOTED FROM RIGHT NARE. BLEEDING LATER NOTED TO R NARE. DR GUZMÁN IN TO SEE PT THIS AM, FULL UPDATE GIVEN. KPHOS INFUSING. DR ESTRADA AND DR HSIEH ALSO IN TO SEE PT THIS AM, UPDATE GIVEN.
--- NOTE | 2021-08-20 11:36 | NUR ---
LR DC'D. FENTANYL AND ATIVAN DC'D WELL, PT HAS NOT REQUIRED SEDATION OR PAIN MEDICATION SHE IS MINIMALLY RESPONSIVE
--- NOTE | 2021-08-20 12:40 | NUR ---
TRACH CARE COMPLETED, INNER CANNULA CHANGED. SLIGHT BLEEDING TO NOSE HAS STOPPED. LEVOPHED AT 2MCG. BM CLEANED. SOME EXCORIATION NOTED TO BUTTOCKS BELOW COCCYX. MEPILEX PLACED. PT HAS EYES CLOSED MORE TODAY COMPARED TO YESTERDAY, DOES OPEN THEM SPONT. DOES NOT FOLLOW ANY COMMANDS. ABSENT MOVEMENT TO LIMBS.
--- NOTE | 2021-08-20 14:47 | NUR ---
TUBE FEEDS INCREASED TO 65CC/HR; AT GOAL RATE
--- NOTE | 2021-08-20 15:39 | NUR ---
PT'S HAD CONCERN REGARDING PT'S LEFT EYE, STATES SHE WAS RECEIVING MEDICATED EYE GTTS AT [facility]. LEFT SCLERA MINIMALLY RED, WITH VERY MILD SCLERAL EDEMA TO LEFT BOTTOM CORNER OF LEFT EYE. BOTH EYES MOIST. WILL PASS ON TO MD.
--- NOTE | 2021-08-20 17:09 | NUR ---
DR GUZMÁN IN TO SEE PT'S AND GIVE HIM AN UPDATE. DR HSIEH IN TO EXAMINE PT'S EYES, EYE GTT RX ORDERED. FIO2 BRIEFLY INCREASED TO 40% AROUND 1600 FOR ABOUT AND HOUR, PT HAD BEEN DESATURATING DOWN TO 86%. FIO2 NOW AT 30%, SATS 93%. PT HAS REQUIRED LOW DOSE LEVOPHED T/O SHIFT. LEVOPHED NOW ON SB, PRESSURES TRENDING DOWN AGAIN PT IS SLEEPING. PT HAS NASIMA TUBE FEEDS AT GOAL RATE OF 65CC/HR.
--- NOTE | 2021-08-20 19:15 | NUR ---
Assumed care. Report received from adi CHAVEZ. Pt in bed, ventilated via trach, vent settings: AC/VC 20/320/5/30%. R/axillary ART line in place. JENIFER PICC in place, IV pumps running LR 10 ml/hr, NS 10 ml/hr. PEG tube in place, tube feed running at goal rate 65 ml/hr. Myers catheter in place. No acute needs at this time, will continue to monitor.
[2021-08-21 04:51] LABS: BASOPHILS ABSOLUTE AUTO 0.01 K/mm3 (0.00-0.23); BASOPHILS PERCENT AUTO 0 % (0-2); EOSINOPHILS PERCENT AUTO 0 % (0-6); Hematocrit 21.6 % (33.0-51.0); Hemoglobin 7.6 g/dL (11.5-16.0); IMMATURE GRAN PERCENT AUTO 2 % (0-1); LYMPHOCYTES ABSOLUTE AUTO 0.67 K/mm3 (0.84-5.20); LYMPHOCYTES PERCENT AUTO 10 % (21-46); MONOCYTES ABSOLUTE AUTO 0.19 K/mm3 (0.16-1.47); MONOCYTES PERCENT AUTO 3 % (4-13); Mean Corpuscular HGB 36.2 pg (26.0-34.0); Mean Corpuscular HGB Conc 35.2 g/dL (31.5-36.5); Mean Corpuscular Volume 103 fL (80-100); Mean Platelet Volume 9.9 fL (9.1-12.4); NEUTROPHILS ABSOLUTE AUTO 5.53 K/mm3 (1.96-9.15); NEUTROPHILS PERCENT AUTO 85 % (41-73); NRBC ABSOLUTE 0.08 K/mm3 (0.00-0.02); NRBC Auto 1.2 /100 WBC (0.0-0.2); Platelet Count 140 K/mm3 (150-400); RDW Standard Deviation 65.1 fL (35.1-46.3)
[2021-08-21 05:28] LABS: Vancomycin, Random 12.5 ug/mL
[2021-08-21 05:36] LABS: Anion Gap 6 mmol/L (6-16); Blood Urea Nitrogen 15 mg/dL (8-24); Bun/Creatinine Ratio 55.8 (12.0-20.0); CO2, Blood 29 mmol/L (21-32); Calcium, Blood 8.7 mg/dL (8.5-10.1); Chloride, Blood 109 mmol/L (98-108); Creatinine, Blood 0.27 mg/dL (0.40-1.00); Glomerular Filtration Rate >60 (60-); Glucose, Blood 151 mg/dL (70-99); Magnesium, Blood 1.8 mg/dL (1.6-2.4); Sodium, Blood 144 mmol/L (136-145)
--- NOTE | 2021-08-21 06:17 | NUR ---
Shift summary. Pt in bed, ventilated via trach, vent settings unchanged this shift, AC/VC 20/320/5/30%. Art line in place, BP stable this shift with Levophed on standby. PICC JENIFER, NS 10 ml/hr running. PEG tube in place, tube feed at goal rate 65 ml/hr. Temp pulliam in place, 1900 mls out this shift. See shift assessment for further details. Will continue to monitor and report off to dayshift RN.
--- NOTE | 2021-08-21 06:39 | NUR ---
PHYSICIAN CONTACT. DR. FERNANDEZ CALLED AT 0625, REPORTED PHOSPHORUS OF 2.0. NO NEW ORDERS.
--- NOTE | 2021-08-21 16:25 | NUR ---
BRIGHT RED BLOOD NOTED WITH OROPHARYNGEAL SUCTION. ALSO NOTED THAT PT HAD SIGNIFICANT BLOODY NOSE YESTERDAY. DR. WADSWORTH NOTIFIED. ORDERS TO CONTINUE TO MONITOR FOR NOW.
--- NOTE | 2021-08-21 18:56 | NUR ---
SHIFT SUMMARY NO NEURO CHANGES THIS SHIFT. SEE SHIFT ASSESSMENT FOR DETAILED PT ON SPONTANEOUS MODE 30%, PEEP 5. SCANT INLINE SECRETIONS. PT HAS POSITIONAL CUFF LEAK. PT HAD BRIGHT RED BLOOD FROM OROPHARYNGEAL SUCTION THIS AFTERNOON, NOTIFIED, SEE PREVIOUS NOTE. SINCE THIS EPISODE, OROPHARYNGEAL SUCTION HAS SCANT BLOOD. 1 BM TODAY. CLEAR YELLOW URINE, APPROX 3L OUT TODAY. ART LINE REMOVED PER ORDER. TURNS Q2.
--- NOTE | 2021-08-21 20:00 | NUR ---
ASSUMED CARE OF PT AT 1915. REPORT RECEIVED. PT PRESENTS IN BED WITH TRACH TO VENT. PT TOLERATES WELL. DOES HAVE POSITIONAL TRACH (CUFF) LEAK THAT IS CORRECTABLE. PT HAS EYES OPENED TO VERBAL STIMULI. NO PURPOSEFUL EYE MOVEMENT, AND DOES NOT HAVE ANY PURPOSEFUL MOVEMENTS. WILL REVIEW CHART AND PLAN OF CARE FOR THIS PT.
[2021-08-22 06:18] LABS: Magnesium, Blood 2.1 mg/dL (1.6-2.4); Phosphorus, Blood 1.9 mg/dL (2.5-4.9)
--- NOTE | 2021-08-22 06:30 | NUR ---
PT CONTINUES WITH TUBE FEEDING AT GOAL. LESS THAN 10 ML RESIDUALS. LOW GRADE FEVER 99.5-99.9. TURNED Q 2 HOURS. FULL BEDBATH DONE. PT DOES NOT TRACK WITH EYES. WILL OPEN EYELIDS WITH VERBAL AND TACTILE STIMULI. WILL CONTINUE TO MONITOR PT, AND WILL REPORT OFF TO ONCOMING RN.
[2021-08-22 08:22] LABS: BASOPHILS ABSOLUTE AUTO 0.03 K/mm3 (0.00-0.23); BASOPHILS PERCENT AUTO 0 % (0-2); EOSINOPHILS ABSOLUTE AUTO 0.02 K/mm3 (0.00-0.68); EOSINOPHILS PERCENT AUTO 0 % (0-6); Hematocrit 28.8 % (33.0-51.0); Hemoglobin 8.5 g/dL (11.5-16.0); IMMATURE GRAN ABSOLUTE AUTO 0.18 K/mm3 (0.00-0.10); IMMATURE GRAN PERCENT AUTO 2 % (0-1); LYMPHOCYTES ABSOLUTE AUTO 0.95 K/mm3 (0.84-5.20); LYMPHOCYTES PERCENT AUTO 10 % (21-46); MONOCYTES ABSOLUTE AUTO 0.46 K/mm3 (0.16-1.47); MONOCYTES PERCENT AUTO 5 % (4-13); Mean Corpuscular HGB 29.6 pg (26.0-34.0); Mean Corpuscular HGB Conc 29.5 g/dL (31.5-36.5); Mean Corpuscular Volume 100 fL (80-100); Mean Platelet Volume 9.7 fL (9.1-12.4); NEUTROPHILS ABSOLUTE AUTO 7.47 K/mm3 (1.96-9.15); NEUTROPHILS PERCENT AUTO 82 % (41-73); NRBC ABSOLUTE 0.17 K/mm3 (0.00-0.02); NRBC Auto 1.9 /100 WBC (0.0-0.2); Platelet Count 180 K/mm3 (150-400); RDW Coefficient Variation 17.3 % (11.7-14.2); RDW Standard Deviation 63.3 fL (35.1-46.3); Red Blood Cell Count 2.87 M/mm3 (3.80-5.20); White Blood Cell Count 9.11 K/mm3 (4.00-11.30)
[2021-08-22 08:40] LABS: Alanine Aminotransfer (ALT/SGP 72 U/L (12-78); Albumin, Blood 1.8 g/dL (3.4-5.0); Albumin/Globulin Ratio 0.5 (0.8-1.8); Alk Phos 124 U/L (50-136); Anion Gap 5 mmol/L (6-16); Aspartate Aminotrans (AST/SGOT 35 U/L (12-37); Bilirubin, Total 0.3 mg/dL (0.1-1.0); Blood Urea Nitrogen 17 mg/dL (8-24); Bun/Creatinine Ratio 60.7 (12.0-20.0); CO2, Blood 29 mmol/L (21-32); Calcium, Blood 8.8 mg/dL (8.5-10.1); Chloride, Blood 107 mmol/L (98-108); Creatinine, Blood 0.28 mg/dL (0.40-1.00); Globulin, Blood 3.4 g/dL (2.2-4.0); Glomerular Filtration Rate >60 (60-); Glucose, Blood 102 mg/dL (70-99); Potassium, Blood 4.5 mmol/L (3.5-5.5); Sodium, Blood 141 mmol/L (136-145); Total Protein, Blood 5.2 g/dL (6.4-8.2)
--- NOTE | 2021-08-22 12:24 | NUR ---
REASSESSMENT PT HAS BEEN RESTING QUIETLY IN BED. REMAINS ON THE VENTILATOR, SPONTANEOUS MODE, SEE RT FLOW SHEET. PT CONTINUES TO BE UNRESPONSIVE. SHE GOT TACHYPNEIC UP TO 38 WITH THE LAST TURN, BUT OTHERWISE APPEARS TO HAVE NO PHYSIOLOGIC RESPONSE TO STIMULI. PUPILS REMAIN 7MM ON THE R AND 6MM ON THE LIFT, REACTIVE TO LIGHT, BUT NYSTAGMUS WITH BOTH EYES. NO TRACKING OF MOVEMENT NOTED. SKIN IS FLUSHED AND WARM. CORE TEMP 99.5, WILL GIVE TYLENOL IF IT CONTINUES TO RISE AND REACHES 100.4F. LUNGS COARSE, SCANT SECRETIONS. INNER CANNULA CHANGED, TRACH SITE CLEANED AND DRESSING CHANGED. SINUS TACH IN THE LOW 100S, BP STABLE. FERREIRA WITH CL YELLOW URINE. NO RESIDUALS FROM PEG TUBE, BT ACTIVE. CONTINUING TO MONITOR.
--- NOTE | 2021-08-22 16:44 | NUR ---
SHIFT SUMMARY PT REMAINS ON THE VENTILATOR VIA TRACH. PT'S AT THE BEDSIDE THIS AFTERNOON AND KEEPS TRYING TO GET PT TO BLINK [address] TO COMMUNICATE. HE STATES PT IS DOING IT, BUT THIS RN DID NOT WITNESS PT BLINK IN RESPONSE TO HIS QUESTIONS. PT DOES APPEAR TO TRACK HIM IN THE ROOM A LITTLE BIT, BUT STILL DOES NOT RESPOND TO PAINFUL STIMULI. LUNGS REMAIN COARSE. SR, BP STABLE. TOLERATING TUBE FEED WITH MINIMAL RESIDUALS. ONE SMALL BM TODAY. TYLENOL GIVEN ONCE THIS AFTERNOON FOR TEMP 99.7F AND HR INCREASING TO 1 TEENS. TEMP DECREASING AFTER TYLENOL AND HR BETTER, BACK IN LOW 100S. PT'S UPDATED FULLY. ALL QUESTIONS ANSWERED.
--- NOTE | 2021-08-22 20:00 | NUR ---
ASSUMED CARE OF PT AT 1915. REPORT RECEIVED. PT PRESENTS IN BED. OPENS EYES TO STIMULI, BUT DOES NOT TRACK. NO PURPOSEFUL MOVEMENTS OR REACTIONS TO STIMULI. PT HAS TRACH THAT IS TO VENT. PS 14, FIO2 30 PERCENT, PEEP 5. PT MAINTAINS SATURATIONS > 90 PERCENT WITH THESE SETTINGS. NO S/S PAIN OR DISTRESS. WILL REVIEW CHART AND PLAN OF CARE FOR THIS PT.
--- NOTE | 2021-08-23 01:41 | NUR ---
FULL BEDBATH DONE FOR THIS PT. NO REACTIONS FROM PT WITH TURNS OR STIMULI OTHER THAT HAVING HER EYES OPEN. TUBE FEEDING CONTINUES AT GOAL. < 10 ML RESIDUALS NOTED. HAVE RETURNED ONLY SMALL AMOUNTS OF SECRETIONS FROM TRACH. PALE WHITE/CREAM COLOR. PT'S TEMP MAX REMAINS 99.5 THIS CONSISTENT. WILL CONTINUE TO MONITOR.
[2021-08-23 05:21] LABS: Anion Gap 6 mmol/L (6-16); Blood Urea Nitrogen 20 mg/dL (8-24); Bun/Creatinine Ratio 77.2 (12.0-20.0); CO2, Blood 30 mmol/L (21-32); Calcium, Blood 8.7 mg/dL (8.5-10.1); Chloride, Blood 106 mmol/L (98-108); Creatinine, Blood 0.26 mg/dL (0.40-1.00); Glomerular Filtration Rate >60 (60-); Glucose, Blood 106 mg/dL (70-99); Phosphorus, Blood 2.7 mg/dL (2.5-4.9); Potassium, Blood 4.3 mmol/L (3.5-5.5); Sodium, Blood 142 mmol/L (136-145)
--- NOTE | 2021-08-23 06:16 | NUR ---
PT CONTINUES WITHOUT CHANGE FROM PREVIOUS ASSESSMENT. NO S/S DISTRESS. NO CHANGES TO VENT SETTINGS THROUGHOUT THE NIGHT. MAINTAINS > 90 PERCENT SATURATED. WILL CONTINUE TO MONITOR PT, AND WILL REPORT OFF TO ONCOMING RN.
--- NOTE | 2021-08-23 09:32 | NUR ---
[place] of Care: Care assumed at 0700hr. Patient sleeping but opens eyes to stimuli. Does not track staff or follow any commands. Baseline tremor of BUE's, otherwise absent of movement to extremities. Vent to trach, PS mode of 14/5/30%, spO2-97-98%. Respiratory rate mostly 14-16, but has occasional apnea. BP and HR stable. Patient has low grade temp of 99.1 this morning[address] Spoke with Dr. Wynn who ordered repeat sputum and blood cultures. PICC line to JENIFER patent and intact. Myers cath patent and intact, draining clear yellow urine. PEG tube patent and intact, infusing TF at goal rate, no s/s of GI intolerance. Will continue to monitor.
--- NOTE | 2021-08-23 17:35 | NUR ---
Shift Summary: No significant changes throughout shift. No change in neuro status, opens eyes but not following commands or tracking staff. No purposeful movements. VSS throughout shift, spO2-96-98%. No changes to vent settings, remains on PS of 14/5/30%. Dr. Wynn states plan to trail trach collar tomorrow. RT Khris exchanged trach appliance this shift. Proximal XLT 6.0 placed without difficulty. Change to XLT made in attempt to better control cuff leak with good effect noted. Myers cath remains patent and intact, draining clear yellow urine. PICC line remains patent and intact. Small pasty brown BM noted late this shift. Spoke with Dr. Wynn, discussed plan to D/C Banitrol flakes at this time. at bedside, all questions answered to his satisfaction. Will continue to monitor until report to NOC shift RN.
[2021-08-24 04:21] LABS: Hematocrit 29.2 % (33.0-51.0); Hemoglobin 8.9 g/dL (11.5-16.0); Mean Corpuscular HGB Conc 30.5 g/dL (31.5-36.5); Mean Corpuscular Volume 98 fL (80-100); Mean Platelet Volume 10.1 fL (9.1-12.4); NRBC ABSOLUTE 0.27 K/mm3 (0.00-0.02); NRBC Auto 4.1 /100 WBC (0.0-0.2); Platelet Count 213 K/mm3 (150-400); RDW Coefficient Variation 17.2 % (11.7-14.2); RDW Standard Deviation 61.9 fL (35.1-46.3); Red Blood Cell Count 2.97 M/mm3 (3.80-5.20); White Blood Cell Count 6.63 K/mm3 (4.00-11.30)
[2021-08-24 04:36] LABS: Anion Gap 5 mmol/L (6-16); Blood Urea Nitrogen 26 mg/dL (8-24); Bun/Creatinine Ratio 96.7 (12.0-20.0); CO2, Blood 32 mmol/L (21-32); Calcium, Blood 8.9 mg/dL (8.5-10.1); Chloride, Blood 104 mmol/L (98-108); Creatinine, Blood 0.27 mg/dL (0.40-1.00); Glomerular Filtration Rate >60 (60-); Glucose, Blood 137 mg/dL (70-99); Sodium, Blood 141 mmol/L (136-145)
[2021-08-24 04:48] LABS: BAND PERCENT MAN 5 % (0-8); BASOPHILS PERCENT MAN 0 % (0-2); EOSINOPHILS PERCENT MAN 0 % (0-6); LYMPHOCYTES ABSOLUTE MAN 0.46 K/mm3 (0.84-5.20); LYMPHOCYTES PERCENT MAN 7 % (21-46); METAMYELOCYTE ABSOLUTE MAN 0.19 K/mm3 (0.00-0.00); METAMYELOCYTE PERCENT MAN 3 % (0-0); MONOCYTES ABSOLUTE MAN 0.46 K/mm3 (0.16-1.47); MONOCYTES PERCENT MAN 7 % (4-13); MYELOCYTE ABSOLUTE MAN 0.13 K/mm3 (0.00-0.00); MYELOCYTE PERCENT MAN 2 % (0-0); NEUTROPHILS ABSOLUTE MAN 5.37 K/mm3 (1.96-9.15); SEG NEUTROPHILS PERCENT MAN 76 % (41-73); TOTAL CELLS COUNTED 100
--- NOTE | 2021-08-24 06:05 | NUR ---
END OF SHIFT SUMMARY: PT SLEPT COMFORTABLY THROUGHOUT THE NIGHT, STILL DOES NOT TRACK AND DOES NOT FOLLOW COMMANDS. BILAT UPPER EXTREMITIES HAS SPASTICITY DURING STIMULATION LIKE REPOSITIONING OR ORAL CARE. PT WAS PUT BACK ON AC/VC OVERNIGHT DUE TO LONG PERIODS OF LOW TIDAL VOLUME AND APNEA (FIO2 30%, RR 20, PEEP 5). SCANT SECRETIONS IN TRACH TUBE, SECRETIONS MOSTLY OUTSIDE OF TRACH SITE (THICK, BROWN). VERY WEAK COUGH. TRACH CARE DONE. NO BM, TF STILL INFUSING WITH 0 ML OF RESIDUALS, NO BM, CATHETER PATENT AND DRAINING TO GRAVITIY. Q2H TURNS TO MAINTAIN SKIN INTEGRITY.
--- NOTE | 2021-08-24 09:36 | NUR ---
CARE ASSUMED OF PT AT 0700. PT OPENS EYES AND TRACKS WHEN IN ROOM. PT DOES NOT FOLLOW ANY COMMANDS SUCH CLOSE YOUR EYES, OPEN YOUR MOUTH. ABSENT MOVEMENT TO ALL 4 EXTREMITIES, ABSENT PLANTAR REFLEXES. WEAK COUGH, GAG. TUBE FEEDS AT GOAL/65CC/HR. PT IS NOT ON ANY MAINT. FLUIDS TUBE FEEDS AT GOAL. PT ON AC SETTINGS, MAY TRIAL SPONT TODAY.
--- NOTE | 2021-08-24 12:52 | NUR ---
PICC PULLED BACK 5CM PER DR ARCINIEGA. PICC NOW DRAWS FROM ALL 3 PORTS W/O DIFFICULTY. CATHFLO NOT NEEDED. RT DRAWING ABG NOW. NO OTHER CHANGES.
[2021-08-24 12:58] LABS: PO2 Arterial 80.2 mmHg (80-100); pH Blood Arterial 7.49 (7.35-7.45)
--- NOTE | 2021-08-24 14:01 | NUR ---
PT'S GIVEN PHONE UPDATE.
--- NOTE | 2021-08-24 17:01 | NUR ---
RT PLACED PT ON SPONT W PRESSURE SUPPORT 14/[address]CINIEGA. PT TO STAY ON PS FOR LONG TOLERATED. RESP 10-20, DR ARCINIEGA AWARE, SATS >90%.
--- NOTE | 2021-08-24 19:23 | NUR ---
ASSUMED CARE PT. OPENS EYES SPONT. HOWEVER NOT FOLLOWING ANY COMMANDS. PT. IS NOT ON ANY SEDATING MEDICATIONS. OCCASIONALLY TRACKS WHEN IN THE ROOM, BUT DOES NOT RESPOND TO ANY VERBAL STIMULI, OR WITHDRAW FROM PAINFUL STIMULI. PT. UNRESTRAINED, ABSENT MOVEMENT TO ALL 4 EXTREM. RIGHT ARM CONTRACTED IN AND OCCASIONAL TREMORS NOTED. PT. CURRENTLY ON PS 14, PEEP 5, 30% WITH RATE 16-20, WITH OCCASIONAL APNIC EPISODES NOTED. LS COARSE T/O. WEAK COUGH NOTED WITH SUCTION. PT. HR LOW 10SS, BP WNL SEE VITALS IN FLOW SHEET. TUBE FEED INFUSING THROUGH PEG TUBE, JEVITY 1.2, INFUSING AT GOAL. FERREIRA TEMP PROBE IN PLACE, DRAINING CLEAR YELLOW URINE TO GRAVITY, TEMP NOTED AT 99.1. PT SALINE LOCKED. PICC TO JENIFER, DRESSING CDI.
--- NOTE | 2021-08-25 01:08 | NUR ---
UPDATE PT. BED BATH COMPLETED. NO SPONT MOVEMENT NOTED BY PT DURING BED BATH, OPENED EYES AND OCCASIONALLY TRACKS BUT NOT CONSISTENTLY AND NOT FOLLOWING ANY COMMANDS. PT SWITCHED TO AC 16, TV 30, PEEP 5, 30% FIO2 DUE TO APNEA. VSS, REPOSITIONING FREQUENTLY FOR PRESSURE RELIEF. EXTREM ELEVATED ON PILLOWS.
--- NOTE | 2021-08-25 05:28 | NUR ---
SHIFT SUMMARY PT. NEURO STATUS REMAINS UNCHANGED. CONTINUES ON AC 16, TV 320, PEEP 5, 30%FIO2 THIS AM. NO ACUTE CHANGES T/O SHIFT. REPORT TO ONCOMING RN.
--- NOTE | 2021-08-25 09:42 | NUR ---
CARE OF PT ASSUMED AT 0700. NO NEUROLOGIC CHNAGES FROM YESTERDAYS ASSESSMENT. PT OPENS EYES SPONT AND TRACKS. NO MOVEMENT TO 4 EXT. PT CAN NOT MOVE HEAD OR FOLLOW ANY COMMANDS. PT BACK ON AC SETTINGS SHE HAD SOME PERIODS OF APNEA ON SPONT SETTINGS LAST NIGHT. SKIN VERY FAGILE, NEW SKIN TEAR NOTED TO LEFT HAND. PICTURE TAKEN. TRACH STOMA RED, WOUND UNDER TRACH HAS THICK YELLOW MUCUS DISCHARGE. RT CHANGED OUT INNER CANNULA THIS AM. PT IS NOT ON ANY SEDATION OR NARCOTICS SHE IS MINIMALLY RESPONSIVE. PT HAS WEAK COUGH AND GAG.
--- NOTE | 2021-08-25 11:05 | NUR ---
DR ARCINIEGA AT BEDSIDE,UPDATE GIVEN. PT PLACED ON PS 14/5.
--- NOTE | 2021-08-25 18:17 | NUR ---
PT'S IN TO VISIT TODAY, DR ARCINIEGA SPOKE W HIM. PT NASIMA SPONT T/O SHIFT, HAVING A COUPLE APNEA PERIODS STARTING AT 1800, SATS DID NOT DROP. NO OTHER CHANGES TODAY.
--- NOTE | 2021-08-25 19:15 | NUR ---
Assumed care. Report received from adi CHAVEZ. PT in bed, ventilated via trach. Vent settings: Spontaneous, 04/01, 30%. PEG tube in place, TF at 65 ml/hr goal rate. PICC in JENIFER, WNL. Myers catheter in place. VS stable, no acute needs noted. Will continue to monitor.
--- NOTE | 2021-08-26 06:28 | NUR ---
Shift summary. Pt continues in bed, ventilated via trach, Vent settings unchanged during shift: spontaneous 14/, 30%. Peg tube in place, TF running at goal rate 65 ml/hr. PICC in JENIFER, WNL. Myers catheter in place, 550 mls out this shift. VS stable throughout shift, see assessment for further details. Will continue to monitor and report off to dayshift RN.
--- NOTE | 2021-08-26 07:24 | NUR ---
ASSUMED CARE: PT INTUBATED VIA TRACH. ON SPONTANEOUS AT 14/5 WITH 30% FIO2. RT AT BEDSIDE CHECKING SETTINGS AFTER RN MADE HER AWARE THAT NIGHT RN STATED APNEIC PERIODS. NSR AT THIS TIME. NO ACUTE NEEDS OR CONCERNS.
--- NOTE | 2021-08-26 18:17 | NUR ---
SHIFT SUMMARY: PT REMAINS INTUBATED VIA TRACH WITH SETTINGS AC 16/320/5/30%. SATTING 90S. PT IS ALERT AND TRACKS WITH EYES AT TIMES, NO FURTHER NEURO CHANGES THIS SHIFT. FAMILY CAME TO SEE PT AND HAS BEEN UPDATED ON PHONE. PLAN IS FOR FURTHER WEANING OFF OF VENT THEN TRACH COLLAR. NO ACUTE CHANGES OR CONCERNS AT THIS TIME.
--- NOTE | 2021-08-26 19:16 | NUR ---
Assumed care. Report received from adi CHAVEZ. Pt in bed, ventilated via trach, vent settings: AC/VC 16/320/5/30%. Peg tube in place, TF running at 65 ml/hr goal rate. Myers catheter in place. VS stable, no acute needs noted at this time. Will continue to monitor.
--- NOTE | 2021-08-27 06:28 | NUR ---
Shift summary. Pt continues in bed, ventilated via trach. Vent settings unchanged this shift: AC/VC 16/320/5/30%. Peg tube in place, TF at goal rate 65 ml/hr. Myers catheter in place, 400 mls out this shift. VS stable, see shift assessment for further details. Will continue to monitor and report off to dayshift RN.
--- NOTE | 2021-08-27 08:15 | NUR ---
UPDATE: BRANDI LEMONS. ОЛЬГА. BRANDI @ BEDSIDE FOR PT EVAL. PLAN TO TRASITION PT TO TRACH COLLAR TOLERATED. PT PLACED ON SPONT PS 15, PEEP 5, CeS118%. PT DOING WELL w/ TVs 200-300s, BRANDI IS PLEASED w/ PT PERFORMANCE & WILL LEAVE ON SPONT TOLERATED.
--- NOTE | 2021-08-27 15:44 | NUR ---
UPDATE: CODE STATUS, ARRIVAL. ARRIVES @ BEDSIDE. BRANDI & SPOUSE HAVE A LENGTHY PRIVATE CONVERSATION. PER BRANDI, THE CONVERSATION WENT WELL, DISCUSSING POSSIBLE FACILITIES THAT WILL BE ABLE TO ACCEPT THE PT W/ A TRACH. SPOUSE SEEMS RECEPTIVE TO SEEKING OUT A FACILITY IN [place]. CODE STATUS CLARIFIED & UPDATED. PT WILL BE A LIMITED CODE, NO CPR, MEDS ONLY.
--- NOTE | 2021-08-27 17:57 | NUR ---
SHIFT SUMMARY: PT CONTINUES TO REST IN BED. TRACH COLLAR TO VENT. SPONT PS 15, PEEP 5, FiO2 30%. PT HAS BEEN ON SPONTANEOUS ALL DAY & HAS DONE VERY WELL, TVs MAINTAINED 300s-500s, NO EPISODES OF APNEA. PT TO REMAIN ON SPONTANEOUS SHE TOLERATES PER BRANDI. NO ACUTE NEG CHANGES THIS SHIFT. BRANDI & SPOUSE HAD A PRODUCTIVE MEEETING THIS AFTERNOON, HOWEVER SPOUSE REMAINS ABSOLUTE IN HIS BELIEF THAT THE PT WILL "[place]" & DOES NOT ACCEPT HER ILLNESS TERMINAL.
--- NOTE | 2021-08-27 18:51 | NUR ---
Spoke to Dr. Moya this morning and again this afternoon regarding pt's current status, and family goals of care. The pt had been living at an adult Foster Home in [place] prior to this hospitalization, but she was only there for 4 days when she left the hospital in Aug 13. She returned on 08/18/21 and has been in ICU since, with pneumonia and UTI. Her trach was out of place when she returned, and secretions had become very dry due to a malfunctioning piece of equipment at foster home, per pt's Zaki. Request update to pt's facesheet. Zaki reports he is not positive about sending pt back to the foster home, as he realizes she just moved there and returned 4 days later to hospital, landing in ICU. Today, Radha reports he and Dr. Moya had a meeting today, discussing level of care. Dr. Moya is unsure if this foster home is a high enough level of care with possibly not enough trach experience. I did speak to Radha, pt's today regarding the concerns of the foster home not being equipped to handle Mrs. Rojo's care. He did ask for Care Managers to begin looking at other options, such as placement in [place] or even [place], however his concern is it will be too far for regualr visits, or that they may not let him visit al all. Plan to follow up with patient tomorrow, as well as f/u with care management for any other ideas or suggestions.
--- NOTE | 2021-08-27 19:05 | NUR ---
Assumed care. Report received from adi CHAVEZ. Pt in bed, ventilated via trach. Vent settings: Spontaneous, 05/28, 30%. Peg tube in place, TF at goal rate, 65 ml/hr. PICC in [facility], WN. IV pump running NS at 10 ml/hr. Myers catheter in place. VS stable, no acute needs noted at this time, will continue to monitor.
[2021-08-28 04:14] LABS: Hematocrit 30.4 % (33.0-51.0); Hemoglobin 8.9 g/dL (11.5-16.0); Mean Corpuscular HGB 29.5 pg (26.0-34.0); Mean Corpuscular HGB Conc 29.3 g/dL (31.5-36.5); Mean Corpuscular Volume 101 fL (80-100); Mean Platelet Volume 9.6 fL (9.1-12.4); NRBC ABSOLUTE 0.11 K/mm3 (0.00-0.02); NRBC Auto 1.2 /100 WBC (0.0-0.2); Platelet Count 338 K/mm3 (150-400); RDW Coefficient Variation 17.3 % (11.7-14.2); RDW Standard Deviation 62.9 fL (35.1-46.3); Red Blood Cell Count 3.02 M/mm3 (3.80-5.20); White Blood Cell Count 9.12 K/mm3 (4.00-11.30)
[2021-08-28 04:36] LABS: Alanine Aminotransfer (ALT/SGP 66 U/L (12-78); Albumin, Blood 2.1 g/dL (3.4-5.0); Albumin/Globulin Ratio 0.6 (0.8-1.8); Alk Phos 152 U/L (50-136); Anion Gap 2 mmol/L (6-16); Aspartate Aminotrans (AST/SGOT 24 U/L (12-37); Bilirubin, Direct <0.1 mg/dL (0.0-0.3); Bilirubin, Indirect Unable to Calculate mg/dL (0.1-0.7); Bilirubin, Total 0.3 mg/dL (0.1-1.0); Blood Urea Nitrogen 34 mg/dL (8-24); Bun/Creatinine Ratio 151.8 (12.0-20.0); CO2, Blood 37 mmol/L (21-32); Calcium, Blood 8.9 mg/dL (8.5-10.1); Chloride, Blood 102 mmol/L (98-108); Creatinine, Blood 0.22 mg/dL (0.40-1.00); Globulin, Blood 3.5 g/dL (2.2-4.0); Glomerular Filtration Rate >60 (60-); Glucose, Blood 98 mg/dL (70-99); Sodium, Blood 141 mmol/L (136-145); Total Protein, Blood 5.6 g/dL (6.4-8.2)
[2021-08-28 05:26] LABS: BAND PERCENT MAN 2 % (0-8); BASOPHILS ABSOLUTE MAN 0.09 K/mm3 (0.00-0.23); BASOPHILS PERCENT MAN 1 % (0-2); EOSINOPHILS PERCENT MAN 0 % (0-6); LYMPHOCYTES ABSOLUTE MAN 1.09 K/mm3 (0.84-5.20); LYMPHOCYTES PERCENT MAN 12 % (21-46); METAMYELOCYTE ABSOLUTE MAN 0.09 K/mm3 (0.00-0.00); METAMYELOCYTE PERCENT MAN 1 % (0-0); MONOCYTES ABSOLUTE MAN 0.72 K/mm3 (0.16-1.47); MONOCYTES PERCENT MAN 8 % (4-13); NEUTROPHILS ABSOLUTE MAN 7.11 K/mm3 (1.96-9.15); SEG NEUTROPHILS PERCENT MAN 76 % (41-73); TOTAL CELLS COUNTED 100
--- NOTE | 2021-08-28 06:05 | NUR ---
Shift summary. Pt continues in bed, ventilated via trach. Vent settings changed at beginning of shift from spontaneous back to AC/VC 16/320/5/30%. TF running at goal rate, PEG tube WNL. PICC JENIFER. Myers catheter in place, 425 mls out this shift. VS stable, see shift assessment for further details. Will continue to monitor and report off to dayshift RN.
--- NOTE | 2021-08-28 10:28 | NUR ---
UPDATE: VENT CHANGES. PT PLACED ON SPONTANEOUS PS 7, PEEP 5, FiO2 30%. TVs 200-300. BRANDI STS THESE ARE ACCEPTABLE VOLUMES. VSS. WILL CONTINUE ON SPONT PT TOLERATES.
--- NOTE | 2021-08-28 12:30 | NUR ---
PT CONTINUES TO DO WELL ON SPONTANEOUS 02/25, 30%. TVs 200s-300. NO PROGRESSION IN NEURO STATUS. PER DR PAZ, CARE TEAM WILL LOOK INTO POSSIBLE [facility] ADMISSION & WILL CONTINUE TO LOOK INTO [facility] [employer] SOFTWARE ENGINEER CARE IN THE [place] AREA.
--- NOTE | 2021-08-28 18:33 | NUR ---
SHIFT SUMMARY: PT DID WELL ON SPONTANEOUS T/O THE DAY, VENT SETTINGS UNCHANGED. NO PROGRESSION IN NEURO STATUS. SPOUSE WAS @ BEDSIDE FOR SEVERAL HOURS TODAY, TALKING W/ PT & PROVIDING ROM. NO ACUTE NEG CHANGES.
--- NOTE | 2021-08-28 19:16 | NUR ---
Assumed care. Report received from adi CHAVEZ. Pt in bed, ventilated via trach. RT at bedside. Vent settings changed from spontaneous to AC/VC 16/320/5/35%. Peg tube in place, TF running at goal rate, 65 ml/hr. PICC in JENIFER, WNL. NS TKO running at 10 ml/hr. Myers catheter in place. VS stable, no acute needs at this time, will continue to monitor.
--- NOTE | 2021-08-29 06:18 | NUR ---
Shift summary. Pt continues in bed, ventilated via trach. Vent settings: AC/VC 16/320/5/35%. PEG tube in place, TF at goal rate, 65 ml/hr. PICC in JENIFER, WNL. NS tko at 10 ml/hr. Myers catheter in place. VS stable throughout shift, see shift assessment for further details. Will continue to monitor and report off to dayshift RN.
--- NOTE | 2021-08-29 12:11 | NUR ---
Spiritual Care Visit. [facility] had received an ethics referral. Pt. was ventilated and minimally responsive. Pt. was unable to communicate verbally. Prayed with pt. Will monitor.
--- NOTE | 2021-08-29 19:30 | NUR ---
ASSUMED CARE PATIENT LYING IN BED ON VENT VIA TRACH WITH EYES OPEN LOOKING AT TELEVISION. VENT CURRENTLY ON SPONTANEOUS PS 7/5 35% FIO2; SPO2 MID 90'S. JEVITY 1.2CAL INF TO PEG TUBE @ GOAL RATE OF 65ML/HR W/ 30ML Q4H WATER FLUSHES. NS TKO INF INTO JENIFER PICC. FERREIRA PATENT AND DRAINING TO GRAVITY. PATIENT TRACKS STAFF IN ROOM BUT MAKES NO MOVEMENTS WITH EXTREMITIES. REPORT COMPLETED W/ DAYSHIFT RN.
--- NOTE | 2021-08-30 06:34 | NUR ---
SHIFT SUMMARY PATIENT SWITCHED TO AC/VC DURING SHIFT AND KEPT SAME VENT SETTINGS OF 16/320/5/35%. TRACH CARE COMPLETED DURING SHIFT AND DRESSING TO PRESSURE WOUND FROM TRACH CHANGED. PATIENT CONTINUED TRACKING TO SOUND, BUT DID NOT PROVIDE ANY PURPOSEFUL MOVEMENTS OR FOLLOW COMMANDS. FACE BECAME FLUSHED TOWARDS END OF SHIFT DESPITE TEMPS OF 98. PEG TUBE INF JEVITY 1.2CAL @ GOAL RATE W/ MINIMAL RESIDUALS. FERREIRA DRAINED 70ML URINE OUT DURING SHIFT AND NO BM TONIGHT. NO OTHER MAJOR CHANGES.
[2021-08-30 19:08] LABS: Source, Urine Catheter
[2021-08-30 19:17] LABS: Appearance, Urine Clear (Clear); Bilirubin, Urine Neg (Neg); Blood, Urine Neg (Neg); Color, Urine Yellow (P-Yellow); Glucose Qualitative, Urine Neg (Neg); Ketones, Urine Neg (Neg); Leukocyte Esterase, Urine Neg (Neg); Nitrite, Urine Neg (Neg); Protein, Urine 1+ (Neg); Urobilinogen, Urine NORM (Normal)
--- NOTE | 2021-08-30 20:00 | NUR ---
ASSUMED CARE OF PT AT 1915. REPORT RECEIVED AT BEDSIDE. PT PRESENTS IN BED RESTING. VSS. NO DISTRESS TO NOTE. PT SWITCHED TO AC/VC 16, Tv 320, FIO2 30%, PEEP 5. WILL REVIEW CHART AND PLAN OF CARE FOR THIS PT.
--- NOTE | 2021-08-30 23:05 | NUR ---
SPOKE WITH PT'S OVER PHONE. UPDATE HAS BEEN GIVEN. AUTUMN STATES HE FEELS THAT HIS MAY BE HAVING PAIN ISSUES AND BELIEVES THAT SHE WILL RESPOND TO HIM WITH EYE BLINKING. PT HAS HAD AN ELEVATION IN BLOOD PRESSURE. DID OPT TO ADMINISTER 25 MCG'S FENTANYL WHICH WAS AFFECTIVE IN CORRECTING HYPERTENSION. WILL CONTINUE TO MONITOR.
[2021-08-31 03:35] LABS: Hematocrit 31.4 % (33.0-51.0); Hemoglobin 9.2 g/dL (11.5-16.0); Mean Corpuscular HGB 29.9 pg (26.0-34.0); Mean Corpuscular HGB Conc 29.3 g/dL (31.5-36.5); Mean Corpuscular Volume 102 fL (80-100); Mean Platelet Volume 9.2 fL (9.1-12.4); NRBC ABSOLUTE 0.07 K/mm3 (0.00-0.02); NRBC Auto 0.9 /100 WBC (0.0-0.2); Platelet Count 314 K/mm3 (150-400); RDW Coefficient Variation 17.2 % (11.7-14.2); RDW Standard Deviation 62.9 fL (35.1-46.3); Red Blood Cell Count 3.08 M/mm3 (3.80-5.20); White Blood Cell Count 7.48 K/mm3 (4.00-11.30)
[2021-08-31 03:54] LABS: Anion Gap 3 mmol/L (6-16); Blood Urea Nitrogen 30 mg/dL (8-24); Bun/Creatinine Ratio 116.3 (12.0-20.0); CO2, Blood 36 mmol/L (21-32); Calcium, Blood 8.6 mg/dL (8.5-10.1); Chloride, Blood 103 mmol/L (98-108); Creatinine, Blood 0.26 mg/dL (0.40-1.00); Glomerular Filtration Rate >60 (60-); Glucose, Blood 137 mg/dL (70-99); Potassium, Blood 4.2 mmol/L (3.5-5.5); Sodium, Blood 142 mmol/L (136-145)
[2021-08-31 03:58] LABS: BAND PERCENT MAN 1 % (0-8); BASOPHILS PERCENT MAN 0 % (0-2); EOSINOPHILS PERCENT MAN 0 % (0-6); LYMPHOCYTES ABSOLUTE MAN 0.52 K/mm3 (0.84-5.20); LYMPHOCYTES PERCENT MAN 7 % (21-46); METAMYELOCYTE ABSOLUTE MAN 0.07 K/mm3 (0.00-0.00); METAMYELOCYTE PERCENT MAN 1 % (0-0); MONOCYTES ABSOLUTE MAN 0.29 K/mm3 (0.16-1.47); MONOCYTES PERCENT MAN 4 % (4-13); MYELOCYTE ABSOLUTE MAN 0.22 K/mm3 (0.00-0.00); MYELOCYTE PERCENT MAN 3 % (0-0); NEUTROPHILS ABSOLUTE MAN 6.35 K/mm3 (1.96-9.15); SEG NEUTROPHILS PERCENT MAN 84 % (41-73); TOTAL CELLS COUNTED 100
--- NOTE | 2021-08-31 06:09 | NUR ---
PT HAS HAD ELEVATED BLOOD PRESSURES DURING THE NIGHT HAS IMPROVED AFTER FENTANYL [address] HSIEH AND RECEIVED ORDERS FOR HYDRALAZINE AND PARAMETER FOR FENTANYL. WILL MONITOR BLOOD PRESSURES AND MEDICATE NEEDED. PT WILL MAKE EYE CONTACT AND WILL TRACK SOME. NO PURPOSEFUL RESPONSES TO QUESTIONS AND COMMANDS. WILL CONTINUE TO MONITOR PT, AND WILL REPORT OFF TO ONCOMING RN.
--- NOTE | 2021-08-31 08:45 | NUR ---
ASSUMED CARE THIS AM. PT RESTING COMFORTABLE AND NO ISSUES REPORTED OVER NIGHT. PT A BIT MORE AWAKE TODAY AND ABLE TO FOLLOW COMANDS WITH MOUTH CARE. PT TOLERATING VENT WELL ON SETTINGS NOTED IN CHART. PT APPEARS ION NO DISTRESS AND VITALS WNL. MEDS GIVEN AND INTERCANULA CHANGED. PT TOLL WELL. WILL CONTINUE TO MONITOR.
--- NOTE | 2021-08-31 12:25 | NUR ---
PT TURNED AND CLEANED AT 1200 AND 1000. PT BED MOVED TO CENTER OF THE ROOM SO TO BE ABLE TO SITTUP IN BED AND LOOK OUT THE WINDOW ON THIS RENARD DAY. PT EYES OPEN AND LOOKING OUTSIDE AT THIS TIME.
--- NOTE | 2021-08-31 18:42 | NUR ---
NO SIGNIFICANT EVENTS THRU THE DAY. PT RECV. FENTANYL X3 DOSES THRUOUT THE DAY OF 50MCG. AND TOLL WELL. HERE TODAY AND IN GOOD SPIRITS. PT ALSO RECV HYDROLIZINE 10MG ONCE AT APPROX 1400 FOR CONT HTN. PT SPENT MOST AFTERNOON IN CHAIR POSITION LOOKING OUT THE WINDOW AND WAS VERY PLEASED WITH THIS PRESENTATION.
--- NOTE | 2021-08-31 20:00 | NUR ---
ASSUMED CARE OF PT AT 1915. REPORT RECEIVED AT BEDSIDE. PT PRESENTS IN BED. RESTING AT THIS TIME. PT HAS VENT TO TRACH. AC 16, Tv 430, FIO2 30 PERCENT, PEEP 5. MAINTAINS SATURATIONS > 90 PERCENT. WILL REVIEW CHART AND PLAN OF CARE FOR THIS PT.
--- NOTE | 2021-08-31 20:23 | NUR ---
review of pt with nursing has been starined but amendable to nurse will try to have some therputic time with him.
--- NOTE | 2021-08-31 23:32 | NUR ---
PT TOLERATES TURNS AND PERSONAL CARE WELL. DOES OPEN HER EYES UPON CONTACT, AND APPEARS TO TRACK THIS RN IN ROOM. PT IN NO APPARENT DISTRESS. <5ML RESIDUAL FROM PEG TUBE. WILL CONTINUE TO MONITOR BLOOD PRESSURES AND TREAT ACCORDINGLY.
--- NOTE | 2021-09-01 06:30 | NUR ---
PT TOLERATES TURNS THROUGHOUT THE NIGHT. WILL OPEN EYES DURING CARE. QUESTIONABLE PURPOSEFUL ACKNOWLEDGEMENT OF THIS RN WITH EYE MOVEMENT. MINIMAL SECRETIONS RETURNED FROM TRACH. WILL CONTINUE TO MONITOR PT, AND WILL REPORT OFF TO ONCOMING RN.
--- NOTE | 2021-09-01 09:45 | NUR ---
Care Assumed 0700 Pt has trach in place, vent settings: AC VC 16/430/5/25%, FIO2 increased to 30% per Dr. Hayes. LS clear/dim. Pt able to track with eyes but not following commands. Pts face appears flushed, reported to Dr. Vizcarra. TF @ goal via PEG tube, BT active x 4. Myers in place with clear/yellow output.
--- NOTE | 2021-09-01 16:26 | NUR ---
Provider Visit- Vent changes PS 15/5, FIO2 30%. Dr. Hayes in to see patient and vent settings changed to PS. Patients at bedside and provider updated on current treatment.
--- NOTE | 2021-09-01 17:27 | NUR ---
Shift Summary Vent settings: PS 15/5, FIO2 30%. Pt to remains on PS until she is able to tolerate it, per Dr. Hayes. Tracking in room to verbal stimuli. Not following commands or purposeful movement. at bedside and continues to state "she blinks three times to answer questions." Did not witness this while in the room. TF @ goal via PEG, BT active. Temp pulliam in place, yellow/clear output. TKO to PICC. VSS. Will report to nightshift.
--- NOTE | 2021-09-01 21:23 | NUR ---
ASSUMED CARE @1900 PATIENT IS ALERT AND OPENING EYES SPONTANEOUSLY, ABLE TO TRACK MOVEMENT. NO MOVEMENT IN ALL EXTREMTIES. RIGHT HAND CONTRACTURE, CLOTH IN PLACE TO PROTECT SKIN. 02 SATS >93% ON VENT VIA TRACH, SPONT PS 15/5/30%, RR 16, SOME SHORT APNIEC EPISODES. LUNGS CLEAR TO DIMINISHED. HR SR @80s. BP STABLE. PEG TUBE INF TUBE FEED AT GOAL RATE. FERREIRA DRAINING TO GRAVITY, CLEAR YELLOW URINE. ORL CARE DONE AND PATIENT REPOSITIONED. SEE SHIFT ASSESSMEN FOR MORE DETAIL.
[2021-09-02 04:56] LABS: Alanine Aminotransfer (ALT/SGP 50 U/L (12-78); Albumin, Blood 2.2 g/dL (3.4-5.0); Albumin/Globulin Ratio 0.7 (0.8-1.8); Alk Phos 141 U/L (50-136); Anion Gap 5 mmol/L (6-16); Aspartate Aminotrans (AST/SGOT 18 U/L (12-37); Bilirubin, Total 0.5 mg/dL (0.1-1.0); Blood Urea Nitrogen 31 mg/dL (8-24); Bun/Creatinine Ratio 133.6 (12.0-20.0); CO2, Blood 34 mmol/L (21-32); Calcium, Blood 8.6 mg/dL (8.5-10.1); Chloride, Blood 104 mmol/L (98-108); Creatinine, Blood 0.23 mg/dL (0.40-1.00); Globulin, Blood 3.3 g/dL (2.2-4.0); Glomerular Filtration Rate >60 (60-); Glucose, Blood 129 mg/dL (70-99); Potassium, Blood 3.9 mmol/L (3.5-5.5); Sodium, Blood 143 mmol/L (136-145); Total Protein, Blood 5.5 g/dL (6.4-8.2)
--- NOTE | 2021-09-02 06:25 | NUR ---
SHIFT SUMMARY PATIENT ALERT AND OPENING EYES ABLE TO TRACK. NO EXTREMETY MOVEMENT. REMAINS ON VENT VIA TRACH, WAS ON SPONTANEOUS PS BUT HAD SEVERAL APNIEC PERIODS AND WAS CHANGED TO AC VC 16/430/5/30. LUNGS CLEAR TO DIM. 02 SATS >93%. HR SR @80S. BP STABLE. TUBE FEED INF AT GOAL RATE. FERREIRA DRAINING CLEAR YELLOW URINE. REPOSITIONED Q2 HOURS. BEDBATH DONE.
--- NOTE | 2021-09-02 11:45 | NUR ---
UPDATE: VENT CHANGED TO SPONT. PT PLACED ON SPONT 15/5, FiO2 30%. INITIALLY PT HAD FREQUENT PERIODS OF APNEA, HOWEVER W/ STIM PT AWAKENS & WAS ABLE TO MAINTAIN TVs OF 200s.
--- NOTE | 2021-09-02 12:49 | NUR ---
UPDATE: CT RESULTS RADIOLOGY READ OF HEAD CT THIS MORNING REVEALED PROGRESSING TUMOR. ANANTH DISCUSSED FINDINGS W/ PT'S SPOUSE, AUTUMN. IMAGES SENT TO [facility] FOR NEUROSURGERY CONSULT. PALLIATIVE CARE ROUNDED ON PT THIS AM. PLAN FOR CARE TEAM MEETING TODAY INVOLVING ETHICS TEAM.
--- NOTE | 2021-09-02 18:51 | NUR ---
SHIFT SUMMARY: PT REMAINS ON SPONT 15/, 30% & CONTINUES TO DO WELL, TVs 300-400s, SPO2 98%. HEAD CT WAS COMPLETE THIS AM & IMAGES SENT TO [facility] FOR NEUROSURGERY CONSULT, A COPY WAS ALSO PROVIDED FOR THE . CARE TEAM MET WITH ETHICS TODAY, NO WORD YET ON IF A PLAN WAS MADE. NO ACUTE NEG CHANGES.
--- NOTE | 2021-09-02 20:18 | NUR ---
ASSUMED CARE AT 1900 PATIENT IS ALERT AND OPENING EYES SPONTANEOUSLY, ABLE TO TRACK. NO MOVEMENT IN EXTREMETIES. TREMORS IN UPPER EXTREMETIES AND CONTRATURE IN RIGHT HAND, TOWEL IN PLACE TO PROTECT SKIN. 02 SATS >93% ON VENT VIA TRACH SPONT PS 15/5/30%. RR 20. LUNGS SOUND COARSE T/O. HR SR @80s-90s. BP STABLE. FERREIRA DRAINING CLEAR YELLOW URINE TO GRAVITY. FOOT DROP BOOTS IN PLACE. PATIENT ABLE TO OPEN MOUTH FOR ORAL CRARE. PATIENT REPOSITIONED. TUBE FEED INF AT GOAL RATE VIA PEG TUBE. SEE SHIFT ASSESSMENT FOR MORE DETAIL.
--- NOTE | 2021-09-03 05:51 | NUR ---
SHIFT SUMMARY PATIENT REMAINS ALERT AND ABLE TO TRACK MOVEMENT WITH HER EYES. NO MOVEMENT IN ALL EXTREMETIES. 02 SATS 94% ON VENT VBIA TRACH, AC VC 16/430/5/30%, SWITCHED FROM SPONT PS BEFORE MIDNIGHT DUE TO APNIEC PERIODS. LUNGS CLEAR TO DIMINISHED. TRACH CARE DONE. HR SR 80s, BP STABLE. TUBE FEED INF AT GOAL RATE VIA PEG. REPOSITIONED Q2 HOURS.
--- NOTE | 2021-09-03 08:30 | NUR ---
ASSUMED CARE: REPORT RECEIVED FROM RADHA Garza & Daniel VANESSA. ASSUMED CARE OF THIS PT AT APPROX 0700. ON ASSESSMENT, THE PT IS RESTING QUIETLY. SHE AWAKENS TO VERBAL STIMULUS BUT IS OVERALL REMAINING DROWSY. SHE IS ABLE TO FOLLOW SOME SIMPLE DIRECTIONS, SUCH OPENING MOUTH FOR ORAL CARE, W/ PERSISTANT PROMPTING FROM STAFF. EYES ARE OPEN SPONTANEOUSLY & PT TRACKS STAFF/ FAMILY MEMBERS WITHIN THE ROOM. ALL EXTREMITIES REMAIN FLACCID W/ NO MOVEMENT NOTED. R HAND CONTRACTURED. LS ARE DIM IN BASES, 6.[address] W/ VENT SETTINGS: AC/VC 16/430/5/30%. O2 SATS > 95%. MONITOR SHOWS SR W/ HR 80s, BP STABLE. PEG TUBE IN PLACE W/ TUBE FEEDS OF JEVITY 1.2 INFUSING AT GOAL RATE OF 65 ML/HR, LOW RESIDUALS. TEMP FERREIRA PATENT/ DRAINING YELLOW URINE. SKIN CONDITION OVERALL POOR, FRAGILE. MULTIPLE AREAS OF SKIN TEARING & ECCHYMOSIS W/ DRESSINGS IN PLACE, CDI. WILL CONTINUE TO MONITOR & UPDATE NEEDED.
--- NOTE | 2021-09-03 15:46 | NUR ---
Spiritual Care visit. Pt. was ventelated and conscious but not clearly reponsive. Spouse was present. Pts. eyes would track with spouses movements, but otherwise she did not communicate (non-verbally) while I was present. Rapport was established with spouse. Facilitated a life review. Spouse was unsettled by previous diagnosis of pt. by the hospital. The spouse to articulated the health history of the pt. Listened empathetically. Spouse verbalized zaid in the pt. being healed. Explored some issues of zaid and belief. Established commonality with the age and size of families. Family is devout LDS per spouse. Prayed with pt. and spouse.
--- NOTE | 2021-09-03 17:45 | NUR ---
review with staff and ethesist plan potential plans of care.
--- NOTE | 2021-09-03 17:59 | NUR ---
SHIFT SUMMARY: NO ACUTE CHANGES SINCE PRIOR UPDATES. PT REMAINS DROWSY, BUT HAS OVERALL TOLERATED SPONTANEOUS MODE ON VENTILATOR FOR MOST OF THE AFTERNOON W/ HER AT BEDSIDE. LS DIM IN BASES, PT CURRENTLY ON VENT SETTINGS: SPONTANEOUS W/ PS 18, PEEP 5 & FIO2 30%. MONITOR SHOWS SR-ST W/ HR 80-100s, BP STABLE. PEG TUBE TO LEFT ABDOMEN W/ TUBE FEEDS OF JEVITY INFUSING AT GOAL RATE OF 65 ML/HR, NO BM THIS SHIFT. TEMP FERREIRA PATENT/ DRAINING CLEAR YELLOW URINE. PT AFEBRILE THIS THIS. SKIN CONDITION OVERALL POOR, FRAGILE W/ NUMEROUS AREAS OF ECCHYMOSIS & REDDENING. BARRIER CREAMS & POWDER APPLIED PRN. Q2H REPOSITIONING TO MAINTAIN SKIN INTEGRITY. WILL CONTINUE TO MONITOR & REPORT OFF TO ONCOMING RN.
--- NOTE | 2021-09-03 20:32 | NUR ---
ASSUMED CARE AT 1900 PATIENT IS ALERT AND ABLE TO TRACK MOVEMENT WITH HER EYES, OPEN MOUTH FOR ORAL CARE. NO MOVEMENT OF ALL EXTREMETIES. TREMORS AT TIMES IN UPPER EXTREMETIES. CONTRACTURE IN RIGHT HAND, TOWEL IN PLACE TO PROTECT SKIN. 02 SATS 94% ON VENT VIA TRACH AC VC 16/430/5/30%, RR16 SMALL AMOUNT OF YELLOW SPUTUM SUCTIONED FROM TRACH. LUNGS SOUND CLEAR. HR SR @90, BP STABLE. TUBE FEED INF AT GOAL RATE VIA PEG TUBE. FERREIRA DRAINING CLEAR YELLOW URINE. PATIENT REPOSITIONED AND ORAL CARE DONE. SEE SHIFT ASSESSMENT FOR MORE INFO.
--- NOTE | 2021-09-04 05:18 | NUR ---
SHIFT SUMMARY PATIENT ALERT AND ABLE TO TRACK MOVEMENT WITH HER EYES. NO MOVEMENT IN ALL EXTREMETIES. 02 SATS 98% ON VENT VIA TRACH AC VC 16/430/5/30%, LUNGS SOUND CLEAR TO DIMINISHED. SMALL AMOUNT OF KINCAID SPUTUM SUCTION FROM TRACH. TRACH CARE DONE. HR SR @80s, BP STABLE. TF INF AT GOAL RATE. FERREIRA DRAINING CLEAR YELLOW URINE. REPOSITIONED Q2 HOURS.
--- NOTE | 2021-09-04 12:28 | NUR ---
ASSUMED CARE OF PT AT 0700. PT RESTING COMFORTABLE WITH NO PURPOSEFUL MOVEMENTS OR RESPONCES. PT ON VENT ON AC SETTINGS NOTED IN RT CHARTING. PT RESTING AND ASSEMESSMENT NOTED IN CHART. WILL CONTINUE TO MONITOR.
--- NOTE | 2021-09-04 14:33 | NUR ---
Discussion with palliative care and case management facilitated regarding the complex disposition of the principal. Tragically, Kimberly is chronically and terminally ill with no reasonable hope of improvement. She is not expected to benefit in any meaningful way from ongoing aggressive therapy. She has been identified as having no rehabilitation potential, and therefore is not eligible for facility placement. The only ethically viable options at this point are for the patient to be discharged on ventilator support for home-based management, or to be transitioned to comfort measures only and extubated to allow for a dignified parting. To continue with an aggressive plan of service as an inpatient, knowning that Kimberly is in an irrecoverable and untreatable state, is clinically inappropriate, ultimately unsustainable, and morally problematic. The is understandably struggling to accept this notion, but has been gently and honestly informed by care management and palliative care that these are his only remaining choices. Thank you for this consult. Emeka Mcgarry, Tobin, BLAYNE
--- NOTE | 2021-09-04 15:57 | NUR ---
Case Conference: Met with Feed Mill Supervisor Joleen and pt's Radha to discuss placement options. After careful review and multiple discussions with members of pt's healthcare team along with Emeka Mcgarry from ethics, we presented Radha with the available options for the pt. At this time, there are no beds available in the state for a vent-dependent paraplegic with stage 4 metastatic cancer, as she is not only medically fragile, but also not a candidate for rehabilitation. 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 Gentle education reinforced on disease processes, including trajectory.
[2021-09-04 18:23] LABS: Base Excess Venous 14.6 mmol/L; Bicarbonate Venous 36.4 mmol/L (24.0-30.0); PCO2 Venous 45.5 mmHg (38-42); PO2 Venous 36.8 mmHg (38-42); pH Blood Venous 7.52 (7.34-7.37)
[2021-09-05 03:37] LABS: BASOPHILS ABSOLUTE AUTO 0.03 K/mm3 (0.00-0.23); BASOPHILS PERCENT AUTO 0 % (0-2); EOSINOPHILS ABSOLUTE AUTO 0.03 K/mm3 (0.00-0.68); EOSINOPHILS PERCENT AUTO 0 % (0-6); Hematocrit 34.4 % (33.0-51.0); Hemoglobin 10.3 g/dL (11.5-16.0); IMMATURE GRAN ABSOLUTE AUTO 0.19 K/mm3 (0.00-0.10); IMMATURE GRAN PERCENT AUTO 2 % (0-1); LYMPHOCYTES ABSOLUTE AUTO 1.91 K/mm3 (0.84-5.20); LYMPHOCYTES PERCENT AUTO 23 % (21-46); MONOCYTES ABSOLUTE AUTO 0.81 K/mm3 (0.16-1.47); MONOCYTES PERCENT AUTO 10 % (4-13); Mean Corpuscular HGB 29.4 pg (26.0-34.0); Mean Corpuscular HGB Conc 29.9 g/dL (31.5-36.5); Mean Corpuscular Volume 98 fL (80-100); NEUTROPHILS ABSOLUTE AUTO 5.32 K/mm3 (1.96-9.15); NEUTROPHILS PERCENT AUTO 64 % (41-73); NRBC ABSOLUTE 0.05 K/mm3 (0.00-0.02); NRBC Auto 0.6 /100 WBC (0.0-0.2); Platelet Count 338 K/mm3 (150-400); RDW Coefficient Variation 16.7 % (11.7-14.2); RDW Standard Deviation 60.5 fL (35.1-46.3); White Blood Cell Count 8.29 K/mm3 (4.00-11.30)
[2021-09-05 03:51] LABS: Anion Gap 6 mmol/L (6-16); Blood Urea Nitrogen 35 mg/dL (8-24); Bun/Creatinine Ratio 130.1 (12.0-20.0); CO2, Blood 32 mmol/L (21-32); Calcium, Blood 8.5 mg/dL (8.5-10.1); Chloride, Blood 103 mmol/L (98-108); Creatinine, Blood 0.27 mg/dL (0.40-1.00); Glomerular Filtration Rate >60 (60-); Glucose, Blood 101 mg/dL (70-99); Potassium, Blood 3.6 mmol/L (3.5-5.5); Sodium, Blood 141 mmol/L (136-145)
--- NOTE | 2021-09-05 06:16 | NUR ---
SHIFT SUMMARY: PATIENT REMAINS STABLE ON VENT. RT ATTEMPTED TO PUT HER ON PS THIS MORNING AND SHE WENT APNIC IMMEDIATELY. REMAINS ON MINIMAL VENT SETTINGS AT THIS TIME. NO FURTHER NEURO CHANGES. NO SEDATION ON FOR PATIENT AND SHE CONTINUES TO LOOK COMFORATBLE
--- NOTE | 2021-09-05 10:56 | NUR ---
Spiritual Care Contact. Requested nurse to contact statistical methods teacher if intubation is requested by spouse, or for any other significant change in pt.
--- NOTE | 2021-09-05 11:49 | NUR ---
ASSUMED CARE OF PT THIS AM. NO REAL CHANGES IN PT CONDITION AND PT RESTING COMFORTABLE. WILL CONTINUE TO MONITOR.
[2021-09-05 14:45] LABS: PCO2 Arterial 44.2 mmHg (35-45); PO2 Arterial 92.8 mmHg (80-100); pH Blood Arterial 7.44 (7.35-7.45)
--- NOTE | 2021-09-05 17:12 | NUR ---
Pt breathing spontanious via trach for a period of time today, and her bed was repositioned to face the window. at bedside, and has questions regarding differences between Home Health and Hospice. I was able to answer some questions; offered pamphlets on both services, but also reminded him that neither service would be experienced with the trach or vent, and he would be [place] by Harjinder. states he will have a discussion with his and pt's adult children over the weekend, and would make a decision on which direction to go by Abhishek, Sep 10.
--- NOTE | 2021-09-06 16:09 | NUR ---
Spiritual Care visit. Pt. was mostly non-responsive but was breathing with minimal assistance. Sp. present. Was updated by spouse on condition of pt. and any changes of prognosis. Sp. communicated that he expected Pt. to be transferred home in a week (or so). Family to discuss situation on Thursday. Pastoral care was given. Sp. demonstrated consistent care for pt. during visit. Provided some post discharge anticipatory guidance. Sp. verbalized gratitude for visit. Pastoral blessing over the couple was given.
[2021-09-06 16:25] LABS: Source, Urine Foley catheter
[2021-09-06 16:27] LABS: Appearance, Urine Clear (Clear); Bilirubin, Urine Neg (Neg); Blood, Urine 3+ (Neg); Color, Urine Yellow (P-Yellow); Glucose Qualitative, Urine Neg (Neg); Ketones, Urine Neg (Neg); Leukocyte Esterase, Urine 3+ (Neg); Nitrite, Urine Neg (Neg); Protein, Urine 2+ (Neg); Specific Gravity, Urine 1.015 (1.003-1.022); Urobilinogen, Urine NORM (Normal)
[2021-09-06 16:35] LABS: Amorphous Mod (0-Heavy); Bacteria Many /hpf; Mucus Mod (0-Heavy); Red Blood Cells, Urine 25-50 /hpf (0-2); Squamous Epithelial Cells Few /hpf (Few); White Blood Cells, Urine 25-50 /hpf (0-5); Yeast/Fungi Urine Few /hpf
[2021-09-07 03:49] LABS: BASOPHILS ABSOLUTE AUTO 0.04 K/mm3 (0.00-0.23); BASOPHILS PERCENT AUTO 1 % (0-2); EOSINOPHILS ABSOLUTE AUTO 0.06 K/mm3 (0.00-0.68); EOSINOPHILS PERCENT AUTO 1 % (0-6); Hematocrit 36.4 % (33.0-51.0); IMMATURE GRAN ABSOLUTE AUTO 0.28 K/mm3 (0.00-0.10); IMMATURE GRAN PERCENT AUTO 4 % (0-1); LYMPHOCYTES ABSOLUTE AUTO 1.65 K/mm3 (0.84-5.20); LYMPHOCYTES PERCENT AUTO 21 % (21-46); MONOCYTES ABSOLUTE AUTO 0.73 K/mm3 (0.16-1.47); MONOCYTES PERCENT AUTO 9 % (4-13); Mean Corpuscular HGB 29.9 pg (26.0-34.0); Mean Corpuscular HGB Conc 30.2 g/dL (31.5-36.5); Mean Corpuscular Volume 99 fL (80-100); Mean Platelet Volume 9.3 fL (9.1-12.4); NEUTROPHILS ABSOLUTE AUTO 5.15 K/mm3 (1.96-9.15); NEUTROPHILS PERCENT AUTO 65 % (41-73); NRBC ABSOLUTE 0.06 K/mm3 (0.00-0.02); NRBC Auto 0.8 /100 WBC (0.0-0.2); Platelet Count 352 K/mm3 (150-400); RDW Coefficient Variation 16.2 % (11.7-14.2); RDW Standard Deviation 59.1 fL (35.1-46.3); Red Blood Cell Count 3.68 M/mm3 (3.80-5.20); White Blood Cell Count 7.91 K/mm3 (4.00-11.30)
[2021-09-07 04:10] LABS: Anion Gap 5 mmol/L (6-16); Blood Urea Nitrogen 29 mg/dL (8-24); Bun/Creatinine Ratio 124.5 (12.0-20.0); CO2, Blood 29 mmol/L (21-32); Calcium, Blood 8.7 mg/dL (8.5-10.1); Chloride, Blood 107 mmol/L (98-108); Creatinine, Blood 0.23 mg/dL (0.40-1.00); Glomerular Filtration Rate >60 (60-); Glucose, Blood 121 mg/dL (70-99); Magnesium, Blood 2.4 mg/dL (1.6-2.4); Potassium, Blood 3.9 mmol/L (3.5-5.5); Sodium, Blood 141 mmol/L (136-145)
--- NOTE | 2021-09-07 06:46 | NUR ---
SHIFT SUMMARY: NO CHANGES OVERNIGHT. VSS. REPOSITIONED Q2. REMAINS ROOM AIR ON TRACH COLLAR
--- NOTE | 2021-09-07 18:19 | NUR ---
MOVED FROM ICU TO PCU 10. ON ICU BED AT THIS TIME FLOATED WITH PILLOWS, TUBE FEEDING INFUSING. NON VERBAL, NO PURPOSEFUL MOVEMENT OF EXTREMETIES, OPENS EYES SPONTANEOUSLY AND LOOKS AROUND ROOM. TRACH COLLAR IN PLACE 28%. WILL CONTINUE TO MONITOR AND TREAT UNTIL CHANGE OF SHIFT.
--- NOTE | 2021-09-07 20:20 | NUR ---
PATIENT HAS EYES OPEN WHEN I WALK INTO THE ROOM. WILL LOOK AT ME AT TIMES. EYES GAZE TO THE LEFT. DOES NOT FOLLOW DIRECTIONS TO MOVE ARMS OR WIGGLE TOES. SHE DID LOOK AT MY PENLIGHT WHEN I ASKED. EYES NOTED TO BE RED. ON TRACH COLLAR AT 30%. EXTRA CANNULA AT BEDSIDE. PEG TUBE INFUSING WITH TUBE FEEDING PER ORDERS. FERREIRA DRAINING CLEAR YELLOW URINE. MEPILEX TO COCCYX. BRUISING THROUGHOUT EXTREMITIES. DARK BRUISING TO R ABDOMEN. HEELS ELEVATED IN DROP PREVENTION BOOTS. TURNING Q2H.
--- NOTE | 2021-09-07 22:15 | NUR ---
WOUND: WOUND NOTED TO PATIENT'S COCCYX UNDER ALLEVYN DRESSING. REMOVED OLD ALLEVYN DRESSING. TOOK PHOTO FOR CHART. WOUND IS APPROX 5 CM X 5 CM. CLEANSED WOUND WITH SKINTEGRITY WOUND CLEANSER. COVERED WITH ALLEVYN DRESSING. PATIENT TOLERATED WELL. PHOTOS PLACED IN CHART.
--- NOTE | 2021-09-08 02:45 | NUR ---
REPOSITIONED PATIENT TO LEFT SIDE AT 0040. RESPIRATIONS INCREASED TO 40 BUT SPO2 MAINTAINING IN 90'S. HER EYES WERE CLOSED BUT BASED ON HER BREATHING SHE APPEARED TO BE UNCOMFORTABLE. REPOSITIONED HER TO SUPINE (HOB ELEVATED TO 45 DEGREES) AT 0055. ALSO BOOSTED HER IN BED. BP WAS UP TO 160/108 BUT THEN DECREASED TO 152/104 WHEN REPOSITIONING SUPINE. RR DOWN TO 34. THEN AT APPROX 0200 SPO2 DROPPED TO 88%. RESPIRATIONS BACK UP TO 40. RESPIRATORY THERAPIST CAME INTO ROOM AND SWITCHED TRACH COLLAR TO FIO2 40%. HE DEEP SUCTIONED THE TRACH X2 AND OBTAINED THICK WHITE SPUTUM. SPO2 INCREASED TO HIGH 90'S. RESPIRATORY THERAPIST CECI SWTICHED PATIENT BACK TO RA. SPO2 MAINTAINING IN LOW 90'S. BP DOWN TO 119/80.
--- NOTE | 2021-09-08 05:57 | NUR ---
WHEN WE REPOSITIONED PATIENT AT APPROX 0500. RESPIRATORY RATE INCREASED. BREATHING BECAME LOUDER. BP UP TO 157/110. SPO2 DOWN TO 88%. HYPEROXYGENATED PATIENT. SUCTION PERFORMED VIA STERILE TECHNIQUE. SPO2 UP TO 94% AND PATIENT APPEARED TO RELAX. O2 BACK TO FIO2 21%.
--- NOTE | 2021-09-08 07:32 | NUR ---
SHIFT SUMMARY: PATIENT OPENS EYES TO VERBAL AT TIMES. SHE DOES NOT FOLLOW DIRECTIONS. DOES NOT MOVE HER EXTREMITIES. TURNED Q2H. TWO TIMES WHEN WE TURNED HER HER SPO2 DROPPED TO UPPER 80'S AND SHE HAD TO BE SUCTIONED WITH MOD AMT THICK WHITE SPUTUM RETURNED. NO BOWEL MOVEMENT SINCE 08/31, MILK OF MAGNESIA GIVEN. HAS PRESSURE ULCERS TO COCCYX AND LEFT NECK. DRESSINGS CHANGED TO COCCYX AND LEFT NECK, NEW PICTURES TAKEN TO UPDATE CHART. REPORT GIVEN TO ONCOMING RN.
--- NOTE | 2021-09-08 15:19 | NUR ---
Assisted with pt care suppository given. some concern of worsening tumor burden and metasttic disease. Will continue to support through process.
--- NOTE | 2021-09-08 18:54 | NUR ---
SHIFT SUMMARY PT IS NON VERBAL BUT WILL OPEN EYES OCCASIONALLY TO VERBAL STIMULI. WILL ALSO OCCASIONALLY OPEN EYES WHEN REPOSITIONED. WHEN WAS IN ROOM HE WOULD ASK PT A QUESTION AND STATE TO BLINK THREE TIMES AND PATIENT WOULD OCCASIONALLY RESPOND WITH EYE BLINK RESPONSE.PT WILL ALSO TRACK WITH EYES PT IS SINUS RYTHM PER TELE REPORT. VITAL SIGNS HAVE BEEN STABLE, SPO2 MAINTAINED IN UPPER 90'S VIA TRACH COLLAR AT 26% FIO2. PEG TUBE IS COVERED WITH GAUZE AND TAPE DRESSING, DRY/CLEAN/INTACT AND IS INFUSING CONTINUOUS TUBE FEED AT GOAL RATE OF 65ML/HR WITH 30ML FLUSHES EVERY 4 HOURS PER ORDERS. PICC LINE LOCATED IN LEFT UPPER ARM IN CURRENTLY INFUSING ZOSYN PER ORDERS. FERREIRA CATHETER IS IN PLACE AND DRAINING CLEAR/YELLOW/LIGHT OUTPUT. BILATERAL LOWER EXTREMETIES ARE IN BOOTS TO PROTECT FROM LEG DROP. WAS AT BEDSIDE THIS AFTERNOON. NO CARDIAC EVENTS NOTED. BED IS IN LOW POSITION.
--- NOTE | 2021-09-09 05:58 | NUR ---
SHIFT SUMMARY PT NON VERBAL. DID NOT RESPOND TO COMMANDS. OCCASIONALLY OPENED EYES SPONTANEOUSLY, ESPECIALLY DURING REPOSITION. PT HAS TRACH COLLAR WITH BLOW BY, 21% FI02. RT IN ROOM MULTIPLE TIMES TO SUCTION. TELEMETRY SHOWS NSR, HR 80'S. VSS. PT HAS PEG TUBE THAT INFUSED AT GOAL RATE OF 65 MLS/HR T/O NIGHT. MEDS GIVEN THROUGH PEG TUBE. PT HAS FERREIRA CATHETER DRAINING YELLOW URINE WITH SEDIMENT TO GRAVITY. ONE SMALL SOFT BM THIS SHFT. LINEN CHANGED, MEPLEX ON COCCYX CHANGED. PT HAS PICC LINE THAT INFUSED ABX PER EMAR. ORAL CARE DONE Q4H. PT REPOSITIONINED, CURRENTLY FLOATING ON PILLOWS. FEET IN FOOT DROP PREVENTION BOOTS. HANDS HOLDING WASH CLOTHES TO PREVENT CONTRACTURE. CALL LIGHT IN REACH.
--- NOTE | 2021-09-09 16:04 | NUR ---
Patient is a [facility] patient who was transferred to [facility] on 08/18/2021 due to acute and chronic respiratory failure with hypoxia. Received notification/referral for hospice services from Palliative Care Nurse (Sue Aleoj) on 09/09/2021. Patient will discharge with orders for hospice and family elected [facility]. Gathered supporting documentation for referral (face sheet, labs, imaging, progress notes, palliative care note, and H&P) and sent to [facility] final canoe inspector (Bentley Kirby) for review of hospice appropriateness and ability to accept patient onto service post discharge. Will await further information from hospice final canoe inspector regarding the above. Ailin Gregory Referral Liaison
--- NOTE | 2021-09-09 17:43 | NUR ---
Palliative care team review of pt noted the past week more redness and flushing. Review of medication repot to puc charge nurs and bedside nurse of assessment. Nursing updated doctor of our assessment and medication review reccomend further review of diamox and her other medications for side effects.
--- NOTE | 2021-09-09 19:26 | NUR ---
SHIFT SUMMARY: NO ACUTE CHANGES TO PT CONDITION T/OUT SHIFT. PT WILL OCCASIONALLY OPEN HER EYES WHEN REPOSITIONED OR WITH ORAL CARE, DOES NOT INTERACT WITH STAFF OR ENVIRONMENT. TRACH COLLAR WITH BLOW BY OF 21% FIO2 CONTINUES, SUCTIONING PERFORMED PRN. SR ON MONITOR, RATE 90s-LOW 100. PEG TUBE CONTINUES AT INFUSION GOAL RATE OF 65 ML/HR. ORAL CARE COMPLETED Q4H. INDWELLING FERREIRA CONTINUES PATENT AND DRAINING TO GRAVITY. FOOT DROP PREVENTION BOOTS AND WASH CLOTHS FOR HANDS CONTINUE IN PLACE. SPOUSE TO BEDSIDE FOR VISIT TODAY, STATES HE IS LEANING TOWARD TAKING PT HOME ON HOSPICE TO CARE FOR HER, HAS UNTIL TOMORROW TO MAKE DECISION. PT RESTING QUIETLY IN ROOM, NO DISTRESS NOTED. REPORT GIVEN TO KATHY DURAN.
--- NOTE | 2021-09-10 06:20 | NUR ---
SHIFT SUMMARY PT OPENED HER EYES A FEW TIMES DURING SHIFT WHILE REPOSITIONING, BUT DID NOT RESPOND TO VERBAL STIMULI. PT NON VERBAL. SP02>90% ON TRACH W/ BLOW BY. PT BEGAN TO SAT IN 80'S, FI02 INCREASED FROM 21% TO 35% THIS SHIFT. TELEMETRY SHOS NSR, HR 90'S-100'S. FERREIRA CATHETER DRAINING YELLOW SEDIMENT URINE TO GRAVITY. 1 SMALL SOFT BM THIS SHIFT. PT HAS PEG TUBE INFUSING AT GOAL RATE OF 65 MLS/HR. PT HAD SLIGHT ELEVATED TEMP THIS SHIFT, TYLENOL GIVEN PER EMAR WITH TEMPERATURE REASSED IN NORMAL RANGE. Q2H REPOSITIONING. Q4H ORAL CARE PERFORMED, PT WOULD NOT UNCLENCH TEETH, DIFFICULT ORAL CARE. CALL LIGHT IN REACH.
--- NOTE | 2021-09-10 15:36 | NUR ---
At approximately 1500 yesterday afternoon (09/09/21), I made a visit to pt's room to see both she and her Radha. The patient was not awake at any part of our visit yesterday. Radha tells me he has decided to take pt home with [facility]. He had questions about the trach, specifically if it become "clogged", and I deferred the specific hospice protocol questions to Ailin Gregory, who is coordinating the hospice referral, and a hospice patient with a trach is not something I'm familiar with. I did speak to Ailin today, and she informed me the admitting hospice nurse would be meeting with pt's Radha on to discuss hospice services and answer any final questions he may have prior to admission.
--- NOTE | 2021-09-10 15:58 | NUR ---
Noted possible change in pt condition; pt has not been opening her eyes since yesterday morning according to bedside RN, and the nightshift RN report. She opened her eyes once today during mouthcare for a brief moment, but her eyes were fixed in an upward gaze, and she closed them again. Her breathing also appears heavier as well. Plan to talk to pt's Radha when he arrives to visit today.
--- NOTE | 2021-09-10 17:13 | NUR ---
Spiritual Care visit. Pt. is unresposnive to any stimuli throughout the entire visit. Inquired about the plan of care with Radha (the spouse). Radha communicated about an upcoming meeting on with Palliative Care and Home Hospice care. Radha is preparing his home to care for pt. Facilitated a life review, listened empathetically, and pastorally inquired how he was handling it. Spouse communicates both zaid, and sense of advocacy for pt. Provide a calming presence and pastoral grief counseling. Spouse displays evidence of reduced stress. Palliative Care joined the room. Pt. continues to be unresponsive. Spouse inquired and confirmed with PC nurse that he would not be allowed to visit starting tomorrow due to new visitation restrictions. Spouse displayed evidence of diappointment. Pastorally Prayed over pt. and spouse after palliative care leaves. Spouse verbalized gratitude for my visit.
--- NOTE | 2021-09-10 18:34 | NUR ---
SHIFT SUMMARY PT UNRESPONSIVE, OPENING EYES & LOOKING IN FIXED UPWARD DIRECTION DURING ORAL CARE X1 TODAY. PT THEN W/ FIXED FORWARD GAZE WHEN PT IN RM. PT REPORTING PT LOOKING AT HIM, THOUGH PT GAZE FIXED & UNABLE TO TRACK. PT VSS. SPO2 > 92% ON TRACH BLOWBY FIO2 21%, TRANSITIONED FROM AIR TO OXYGEN W/ FIO2 26% TODAY. Q2H REPOSITIONING. FERREIRA CATH PATENT & DRAINING. TF INFUSING VIA PEG TUBE. PT REPORTING HE HAS A MEETING SET FOR THURSDAY TO FURTHER DISCUSS TAKING PT HOME ON HOSPICE.
--- NOTE | 2021-09-11 06:14 | NUR ---
SHIFT SUMMARY PT HAD EYES OPEN MOST OF SHIFT. DOES NOT TRACK FINGERS. SP02>92% ON TRACH WITH BLOW BY 2L 02 WITH 26% FI02. TELEMETRY SOHWS NSR, HR 80'S-100'S. PT HAS PEG TUB INFUSING AT GOAL RATE OF 65MLS /HR. FERREIRA CATHETER DRAINING YELLOW SEDIMENT TO GRAVITY. ONE SOFT SMALL BM THIS SHIFT. FULL LINEN CHANGE. Q2H REPOSITIONING. Q4H ORAL CARE DONE. CALL LIGHT IN REACH.
--- NOTE | 2021-09-11 17:20 | NUR ---
Pt more alert this evening, bedside RN states she has been tracking her with her eyes tonight. No s/s of pain, or SOB. She is breathing heavier than her usual. is meeting with [facility] tomorrow to discuss the hospice philosophy and agressive comfort as a concept. No change in care plan made at this time.
--- NOTE | 2021-09-11 18:21 | NUR ---
SHIFT SUMMARY PT OPENING EYES THIS EVENING, TRACKING THIS RN's MOVEMENTS AROUND RM & MAKING EYE CONTACT. PT BLINKING, BUT UNABLE TO FOLLOW COMMAND FOR BLINK FOR Y/N RESPONSES. PT VSS. SPO2 > 92% ON TRACH W/ BLOW BY FIO2 26%. TELEMETRY SHOWING NSR, HR 80's. PEG TUBE INFUSING TF PER ORDERS. FERREIRA CATH PATENT & DRAINING. PT BUTTOCKS/COCCYX EXCORIATED, NEW WOUND PHOTO TAKEN & PLACED IN CHART. Q2H REPOSITIONING. EXTREMITIES ELEVATED W/ PILLOWS.
--- NOTE | 2021-09-12 05:59 | NUR ---
SHIFT SUMMARY PT HAD EYES APPEARED TO TRACK WITH EYES THIS SHIFT. DURING ONE SESSION OF ORAL CARE, PT ATTEMPTED TO PART TEETH, ABLE TO GET SPONGE ON TONGUE FOR THE FIRST TIME. SP02>92% ON TRACH WITH BLOW BY 2L 02 WITH 26% FI02. TELEMETRY SHOWS NSR, HR 80'S-100'S. PT HAS PEG TUB INFUSING AT GOAL RATE OF 65MLS /HR. FERREIRA CATHETER DRAINING YELLOW SEDIMENT TO GRAVITY. NO BM THIS SHIFT. Q2H REPOSITIONING. Q4H ORAL CARE DONE. CALL LIGHT IN REACH.
--- NOTE | 2021-09-12 15:05 | NUR ---
Care Conference today with [facility] and pt's Radha. Hospice declines to admit pt at this time, as pt's has unrealistic goals, and the team feels sure he isn't ready for comfort care. They're very concerned he will call 911 and send pt to the hospital for treatment. They recommend HH at this time. Ailin Gregory, HH and hospice liason is looking into appropriateness of HH for this pt. Placed call to Emeka Mcgarry, left message for him regarding next steps.
--- NOTE | 2021-09-12 18:13 | NUR ---
SHIFT SUMMARY PT UNABLE TO MOVE EXTREMITIES OR MAKE FACIAL EXPRESSIONS. PT ABLE TO MOVE EYES ONLY. PT UNABLE TO BLINK MEANINGFULLY FOR Y/N RESPONSES OR TRACK OBJECT ON COMMAND, BUT DOES LOOK ABOUT THE RM OCCASSIONALLY. UNCLEAR IF PT HAS PAIN OR DISCOMFORT. PT VSS. SPO2 > 92% ON TRACH W/ BLOW BY FIO2 26%. TELEMETRY SHOWING NSR, HR 80's. PEG TUBE INFUSING TF PER ORDERS. FERREIRA CATH PATENT & DRAINING. PT BUTTOCKS/ COCCYX EXCORIATED, WOUND PHOTO IN CHART. Q2H REPOSITIONING. EXTREMITIES ELEVATED W/ PILLOWS. PT TO PT RM THIS AM PRIOR TO MEETING, QUESTIONING IF REPEAT CXR DONE TODAY, WANTING TO RE-CONFIRM THERE IS NO PNA PRIOR TO DC HOME, FURTHER STATING "I WANT HER TO COME HOME WITH A CLEAN SLATE. LAST TIME WE JUST ENDED UP RIGHT BACK HERE." STATING HE WOULD INQUIRE ABOUT CXR AT PT MEETING. THIS RN NOT PRESENT FOR FAMILY MEETING W/ PT TODAY, BUT REPORT GIVEN TO THIS RN THAT PT WILL NOT DISCHARGE HOME ON HOSPICE. PT THEN REPORTING TO THIS RN AFTER THE MEETING THAT HE IS NOT READY TO START COMFORT CARE AT THIS TIME EITHER.
--- NOTE | 2021-09-13 07:48 | NUR ---
SHIFT SUMMARY PT OPENS EYES AND OCCASIONALLY GRUNTS, DOES NOT RESPOND TO STAFF. APPEARS TO TRACK WITH EYES BUT DOES NOT BLINK IN RESPONSE WHEN DIRECTED TO. SR 90'S. SATS 96-100% W/26% FIO2 BLOWBY. SCANT MUCUS WITH 2ND SUCTIONING BY RT. INNER CANNULA CHANGED. PT HAD SOME BUILD-UP IN FERREIRA, RELIEVED W/FLUSHING 30 MLS OF STERILE WATER AND CHANGING FERREIRA BAG. TF CONTINUES AT 65 MLS/HR. 30 ML Q4 HR FLUSHES PROGRAMMED. ABD IS ROUND AND FIRM, HYPERACTIVE BS. X1 FORMED BM EARLY IN SHIFT. REPOSITIONING AND ORAL CARE T/O SHIFT.
--- NOTE | 2021-09-13 09:37 | NUR ---
Call received from Ailin Read [facility]. Nursing staff needs to give pt's spouse extensive education on trach care, suctioning, and feeding tube management.
--- NOTE | 2021-09-13 13:11 | NUR ---
Case discussed with KATHY Freire. Plan to hold education for pt's at this time as ethics committee is still working on finalizing the discharge plan.
--- NOTE | 2021-09-13 16:46 | NUR ---
Team meeting with palliative care and Emeka Mcgarry to review pt and discharge plan. Pt high risk for failed DC plan. After review discussed geetting support from [facility] and physicians from the community to reach acceptance Pt risk for suffering if he cannot manage her needs. Review of pt porgression and symptom need. Emeka Gandhi and they com writer asses her changes in abdomen and tumors. She may not be able to express pain reviewed with staf possible S/S of discomfort with turns. If displayed needs medication. Bowel movements are smaller pt may be obstructing. Hold teaching of pt until with have a clear plan for DC. Brief review with doctor Taylor. Had brief supportive conversation with on phone. He was focused on diagnositics. Will follow up this weekend with plan of care. Goal is comfort care and to pass peacfully.
--- NOTE | 2021-09-13 17:12 | NUR ---
SUMMARY Neuro: Pt opens eyes spontaneously. Breathing becomes deeper and more rapid with application of painful stimulus. Pupils 4mm, equal and reactive to light. Cough and gag reflexes intact. Eyes move in direction of verbal stimulus. Musculoskeletal: No purposeful movement noted to BUE or BLE. Occasional tremors present to BUE. Requires maximum assistance for repositioning and all other ADLS. Respiratory: 6.0 non-fenestrated, cuffed, XLT trach in place with trach collar. SpO2 90% or greater with 26% FiO2. Small amount of thick green sputum suctioned from trach in sterile fashion. Lungs clear in upper lobes, diminshed in bases. Trach care performed, dressing and trach tie changed. Inner cannula not due to be changed today, last documented change 09/12/21. Cardiac: Previously sinus rhtyhm, however no longer on telemetry. BP stable. Capillary refill less than 3 seconds BUE and BLE. Nonpitting edema noted to bilateral hands, face, and neck. GI: Tube feeds and flushes per orders per PEG tube. 0 mL residual measured. Pt had two formed bowel movements today. Abd moderately distended. : Myers catheter in place, patent and draining clear yellow urine. Skin: Sacral wound cleaned and dressing changed. Wounds around trach were cleaned and dressings changed. New skin tear noted to right hand. Cleaned. Dressed with mepitel one, sterile gauze, and kerlex. Psychosocial: MARC due to mentation
--- NOTE | 2021-09-13 20:50 | NUR ---
FERREIRA CATHETER WIPES COMPLETED, TUBE FEEDING BAG AND TUBING CHANGED, IV FLUID MAINTENCE LINE CHANGE, PEG TUBE CARE COMPLETE, TRACH CARE COMPLETE.
--- NOTE | 2021-09-14 04:44 | NUR ---
NO CHANGES OVERNIGHT, NEURO PATIENT TEMPERATURE 99.0 WITH NO RESOLVE WITH TYLENOL, ICE PACKS APPLIED TO ARMPITS AND POSTERIOR NECK LINE TEMPERATURE DECREASED TO 98.5 WITH URINE PROBE. PATIENT NOTED TO HAVE SLIGHT PINK SEDIMENT DRAINAGE IN FERREIRA CATHETER, BED BATH GIVEN, CATHETHER CARE COMPLETE AND ALL LINEN BEDDING CHANGED, ORAL CARE Q4, SUCTIONING X 4 THICK KINCAID SPUTUM, PICC LINE DRESSING CHANGE COMPLETED, ALL TUBING CHANGED AND LABELED.
--- NOTE | 2021-09-14 18:11 | NUR ---
SHIFT NOTE PT OPENS EYES TO VERBAL STIMULI, AT TIMES SHE IS ABLE TO TRACK WITH EYES, SHE DOES MAKE SOME EYE CONTACT DURING ORAL CARE. NO PURPOSEFUL MOVEMENT TO COMMANDS, DOES NOT WITHDRAW FROM PAIN, PERRLA PUPILS 5MM BILAT. SLIGHT FACIAL DROOP NOTED AT TIMES TO RT SIDE OF MOUTH. TRACHIAL SUCTION X2 TODAY WITH SMALL AMT OF SPUTUM OBTAINED. CALLED AND HE WAS UPDATED HE ASKED THAT PT HAVE [employer] CHANNEL TURNED ON FOR HER IT IS HER FAVORITE WHICH WAS PERFORMED HE ASKED. AFEBRILE T/O THE DAY. VSS. Q2 HOUR REPOSITIONING, AND ROUTINE ORAL CCARE PERFORMED. TUBE FEEDING INFUSING AT GOAL RATE.
--- NOTE | 2021-09-15 05:14 | NUR ---
PATIENT HAD NO EVENTS OVERNIGHT, REQUIRING MORE FREQUENT SUCTIONING THINK/THIN WHITE SECRETIONS SATURATIONS > 92% 7L 26% FIO2, ORAL CARE Q4 COMPLETED ALL TUBING CHANGED, PEG SITE INTACT, TRACH SITE REDNESS WITH ROLLED EDGES MEPLIX IN PLACE, BUTTOCKS RED AND PRESSURE INJURY, PROVIDING Q2 TURNING, PATIENT HAD A TEMPERATURE AT THE BEGINING OF SHIFT 99.9 PROVIDED ICE IN ARMPITS AND NAPE OF NECK CAME DOWN TO 98.4 AND BEEN STABLE THROUGHOUT THE REST OF SHIFT.
--- NOTE | 2021-09-15 17:57 | NUR ---
SHIFT SUMMARY PT RESPONDING TO VERBAL STIMUI, THIS AM PT TRACKING WITH EYES, HOWEVER, PT NOT THIS AFTERNOON. NO S/SX OF PAIN OR DISTRESS T/O SHIFT. PT RECEIVING IV ANTIBIOTICS. Q2 TURNING. ORAL CARE x3. UPDATED SPOUSE. VSS. NO OTHER ACUTE CHAGNES NOTED DURING SHIFT. WILL CONTINUE TO MONITOR UNTIL REPORT GIVEN TO ONCOMING RN.
--- NOTE | 2021-09-16 06:58 | NUR ---
SHIFT SUMMARY THERE HAVE BEEN NO ACUTE CHANGES WITH PT. PT NEURO REMAINS THE SAME. PT WILL OPEN EYES WITH VERBAL STIMULI AND WILL MOVE JAW WITH ORAL CARE. NO FURTHER COMMANDS ARE FOLLOWED. VITAL SIGN. PT HAS HAD WHEEZY EPISODES AND NEEDING TRACH SUCTIONING. TUBE FEEDING INFUSING CONTINUOUSLY. FERREIRA DRAINING TO GRAVITY. CALL LIGHT IS WITHIN REACH.
--- NOTE | 2021-09-16 18:43 | NUR ---
SHIFT SUMMARY PT RESPONDING TO TACTILE STIMULI, OPENING EYS AND QUICKLY CLOSING EYES. Q2 TURN. NO S/SX PAIN OR DISTRESS NOTED; PT SPOUSE STATES THE PATIENT IS IN PAIN, MEDICATED x1 WITH TYLENOL. SUCTIONED SEVERAL TIMES T/O SHIFT, SMALL AMOUNT OF THICK YELLOW SPUTUM. PT ON TRACH COLLAR FOR HUMIDITY; SPO2 >90% FOR MAJORITY OF SHIFT, DESATURATED BUT QUICKLY RECOVERS. CONTINUEING TUBE FEEDING. FERREIRA PATIENT AND DRAINING. VSS. NO OTHER ACUTE CHANGES NOTED. WILL CONTINUE TO MONITOR.
--- NOTE | 2021-09-17 06:36 | NUR ---
SHIFT SUMMARY PT OPENED EYES OCCASIONALLY DURING SHIFT. SP02>92% ON TRACH W/ BLOW BY HUMIDITY. PT MEDICAL STATUS, NO TELE. PEG TUB INFUSING AT GOAL RATE OF 65MLS /HR. FERREIRA CATHETER DRAINING YELLOW SEDIMENT TO GRAVITY. ONE SOFT SMALL BM THIS SHIFT. FULL LINEN CHANGE. Q2H REPOSITIONING. Q4H ORAL CARE DONE. CALL LIGHT IN REACH.
--- NOTE | 2021-09-17 14:45 | NUR ---
Pt resting in bed with her eyes closed. Flat effect with no facial expressions. Pt does not respond to verbal stimuli. Respirations even and unlabored at this time. Spoke with Primary RN Sara and discussed case. Discussed the potential need of offering pain medication and reviewed potential non verbal indicators of pain. Concnerns of Pt's inability to grimace or use facial expressions. Discussed other indicators such as respiratory rate, heart rate, and B/P to assist with determining potential pain indicators. Palliative Care will remain available.
--- NOTE | 2021-09-17 17:21 | NUR ---
Palliative Care Note: Case conferenced with pt's bedside RN and another Palliative Care RN and made bedside visit to assess for nonverbal indicators of discomfort/distress. Pt's respiratory rate increased at 24/min with increased effort noted. Pt opens eyes but is unable to make eye contact or track although she does appear to be trying. Pt is not able to verbalize. She does not appear agitated but she does not appear comfortable either. Neuro impairment prevents her from demonstrating the nonverbal indicators that we would generally recognize as pain/distress indicators. She has a repetitive tremor or movement of the right hand noted. Strategy discussed for judicious, regular, administration of rx for presumed pain due to extreme edema and watermelon inspector bed bound status and multiple severe comorbidities.
--- NOTE | 2021-09-17 18:47 | NUR ---
SHIFT SUMMARY PT RESPONDING TO PAINFUL STMIULI. PT BP ELEVATED THIS AFTERNOON, PT SPOUSE REPORT THAT THE PT IS IN PAIN, MEDICATED x1 WITH TYLENOL. PT HAS TRACH COLLAR IN PLACE ON AIR, SUCTIONS MINIMAL THICK YELLOW SECRETIONS, INNER CANNULA CHANGES THIS AFTERNOON AND TRACH CARE COMPLETED THIS EVENING. SPO2 >90%, OCCASIONALLY DESATURATS BUT QUICKLY RECOVERS. TUBE FEEDING INFUSION PER ORDERS. PT REPOSITIONED Q2. ORAL CARE COMPLETED Q4 PER ORDERS. VSS. NO OTHER ACUTE CHAGNES NOTED. WILL CONTINUE TO MONITOR UNITL REPORT GIVEN TO ONCOMING RN.
--- NOTE | 2021-09-17 18:52 | NUR ---
PEG TUBE AND TRACH CARE EDUCATION PT SPOUSE AT BEDSIDE THIS EVENING, EDUCATED PT ON PEG TUBE FLUSHING, GRAVITY FEEDING AND CLEANING AND DRESSING CHANGE. EDUCATED PT ON TRACH SUCTIONS, TRACH CARE AND INNER CANULA CHANGE. SPOUSE WAS RECEPTIVE ASKING QUESTIONS, AND REPEATING BACK INSTRUCTIONS, APPEARS TO BE OVERWELMED WITH INSTRCUTION AT THE END. EDUCATED ON NEED TO FOR FREQUENT ORAL CARE AND TURNING PT Q2. SPOUSE IS INTERESTED IN CONTUEING EDUCATION WHILE VISITING DAILY. EDUCATION PACKED PROVIDED TO SPOUSE.
--- NOTE | 2021-09-18 05:42 | NUR ---
SHIFT SUMMARY PT OPENED EYES OCCASIONALLY DURING SHIFT, DID NOT TRACK. EDEMA NOTED IN EYES, PRN EYE DROPS GIVEN PER EMAR X1. SP02>92% ON TRACH W/ BLOW BY HUMIDITY. SUCTIONED PT PRN, THICK WHITE SECRETIONS REMOVED. PT MEDICAL STATUS, NO TELE. PEG TUB INFUSING AT GOAL RATE OF 65MLS /HR. FERREIRA CATHETER DRAINING YELLOW SEDIMENT TO GRAVITY. ONE SOFT SMALL BM THIS SHIFT. FULL LINEN CHANGE. PT RESPIRATIONS INCREASED THIS MORNING. TYLENOL GIVEN PER EMAR WITH RR DECREASING TO BASELINE. Q2H REPOSITIONING. Q4H ORAL CARE DONE. CALL LIGHT IN REACH.
--- NOTE | 2021-09-18 17:43 | NUR ---
Spiritual Care Visit. Pt. was resting and non responsive. Spouse was present and on phone. Waited to engage with spouse, but was asked by spouse to return at a different time.
--- NOTE | 2021-09-18 17:55 | NUR ---
PT SUMMARY: PT REMAINS NON VERBAL, IMMOBILE EYES TRACKS DOWN MOVEMENT, HAS TREMORS ON BOTH HANDS. PT REPOSITIONED Q2HRS, TF INFUSING AT A GOAL RATE 65MLS/HR, TRACH COLLAR VIA BLOWBY SATS ABOVE 90% WILL DESAT TO LOW 80'S NEEDS SUCTION OFTEN WITH THICK YELLOW MUCUS DRAINAGE. TYLENOL GIVEN TWICE FOR THE SHIFT FOR COMFORT. CAME IN TO VISIT EDUCATED ABOUT TUBE FEEDING AND TRACH SUCTIONING, WAS ABLE TO DEMONSTRATE PROPER USE ALSO VERBALIZED UNDERSTANDING. CATHETER WAS CHANGED TODAY WAS NOT DRAINING PATENT, SUSPECTED CLOGGED WITH SEDIMENTS, FERREIRA REPLACED WITH NEW ONE NOW DRIANING WITHOUT ISSUES. PT HAD A BOWEL MOVEMENT, COCCYX DRESSING REPLACED. NO OTHER ISSUES AT THIS TIME, WILL REPORT TO ONCOMING SHIFT
--- NOTE | 2021-09-19 06:36 | NUR ---
SHIFT SUMMARY PT OPENED EYES OCCASIONALLY DURING SHIFT AND OCCASIONALLY TRACKED. PRN EYE DROPS GIVEN PER EMAR X2. SP02>92% ON TRACH W/ BLOW BY HUMIDITY AT START OF SHIFT. MID SHIFT, PT BEGAN DROPPING DOWN TO HIGH 70'S AND THEN COMING BACK UP TO 90'S MULTIPLE TIMES. THIS DID NOT IMPROVE WITH SUCTIONING. RT IN ROOM, PUT PT ON 26% FI02. SUCTIONED PT PRN, THICK WHITE SECRETIONS REMOVED. PT MEDICAL STATUS, NO TELE. PEG TUB INFUSING AT GOAL RATE OF 65MLS /HR. FERREIRA CATHETER DRAINING YELLOW SEDIMENT TO GRAVITY. ONE SOFT SMEAR BM THIS SHIFT. Q2H REPOSITIONING. Q4H ORAL CARE DONE. CALL LIGHT IN REACH PLAYING SOFT MUSIC.
--- NOTE | 2021-09-19 15:09 | NUR ---
Spiritual Care visit. Met pts. spouse as he came into hospital. Came to pts. room. Spouse got shift updates from nurse. Pt. did demonstrate eye movement with spouse and nurse present. Pt. needed suction, and nurse coached spouse through the procedure. Spiritual Care visit was interrupted by staff requesting to meet with spouse.
--- NOTE | 2021-09-19 18:29 | NUR ---
SHIFT SUMMARY PT MEDICAL NO TELE STATUS. PT OPENS EYES SPONTANEOUSLY & TRACKS STAFF MOVEMENT IN RM. PT POSSIBLY ATTEMPTING TO BLINK EYES FOR Y/N RESPONSES, BUT BLINKS INCONSISTENT. PT VSS. SPO2 > 92% ON TRACH W/ BLOWBY FIO2 21%. PT SPOUSE TO PT RM TODAY, SPOUSE ASSISTING W/ PT SUCTIONING. RT TO RM FOR SPOUSE EDUCATION. DIETARY TO RM FOR HOME TUBE FEEDING DISCUSSION W/ . TF INFUSING VIA PEG TUBE PER ORDERS. FERREIRA CATH PATENT & DRAINING. Q2H REPOSITIONING. Q4H ORAL CARE. NO EVENTS.
--- NOTE | 2021-09-19 22:59 | NUR ---
PT UPDATE MONITOR NOTIFIED PT DESAT TO HIGH 70'S. ENTERED PT ROOM, PT CONTINUED TO DESAT. RT NOTIFIED. RN SUCTIONED PT, MODERATE AMOUN TOF HTICK WHITE SPUTUM. PT SATS DECREASED TO 0, NO SPONTANEOUS BREATHING NOTED FOR APPROX 20 SECONDS. EYES OPEN, NOT TRACKING. RT TO ROOM, PLACED PT ON 10L OXYGEN. PT STERNAL RUBBED. PT STARTED SPONTANEOUSLY BREATHING, SATS INCREASED TO 90'S. RT CHANGED PT TRACH INNER CANNULA. SHORTLY AFTER, PT DESATTED AGAIN TO MID 70'S BUT INCREASED BACK TO 90'S SECONDS LATER.
--- NOTE | 2021-09-20 05:39 | NUR ---
SHIFT SUMMARY: PATIENT IS BEDBOUND AND NONVERBAL. Q2HR REPOSITIONING, Q4 ORAL CARE, AND MEDS ADMINISTERED PER EMAR. PATIENT DESAT TO 0% EARLY THIS SHIFT. STERNAL RUB, SUCTIONING, AND SWITCHING FROM BLOWBY TO OXYGEN RESULTED IN SPONTANEOUS BREATHING. VS STABLE THE REST OF SHIFT - BP INCREASES AFTER REPOSITIONING AND PERICARE. WILL CONTINUE TO MONITOR AND REPORT TO DAY RN.
--- NOTE | 2021-09-20 17:04 | NUR ---
Late Entry from 09/19/2021 at 1500: Met with patient's (Radha Rojo) to further discuss hospice discharge planning. Discussed with patient's that we utilize a mail order pharmacy ([facility]) to provide medications related to the hospice diagnosis and for symptom management. All other medications that patient chose to stay on would be patient's and/or patient's family's responsibility to provide and pay for. Patient's verbalized understanding. Discussed that upon discharge patient would be given three prescriptions, one for morphine 20mg/mL #30mL (0.25mL - 1mL PO/SL Q1H PRN SOB/pain), one for lorazepam 0.5mg #20 (1 - 2 PO Q4H PRN anxiety), and one for atropine 1% ophthalmic drops #5mL (3gtts PO/SL Q2H PRN secretions). Explained to the patient's that as patient would not yet be admitted to hospice service at the time of discharge those prescriptions would be patient/patient's family's responsibility to fill and pay for. Patient's verbalized understanding. Discussed with patient's that we contract through [facility] to provide DME such as hospital beds, commodes, etc. to patient. Wrote order for DME (hospital bed, full rails, over bed table, pump & pad, suction bulb tip [employer], 14fr suction catheters, table top suction, and suction tubing at 10" & 72") and sent to [facility] for delivery on Thursday- 09/23/2021. Patient verbalized understanding. At this time humidified air has not been ordered, however, this will be ordered from [facility] for delivery on Thursday. Discussed with patient that once patient was admitted onto hospice services the goal would be for them to contact us ([facility]) over contacting 911 or presenting back to the hospital/ED. Patient's verbalized understanding. Discussed the tentative discharge plans for Thursday- 09/23/2021 at 1030 with preferred mode of transportation- medical transport via gurney. Explained to patient's that I would arrange transportation for patient. Patient's verbalized understanding. Offered a chance for patient's to ask questions regarding the above of which there were none. Will continue to monitor and follow as appropriate for discharge. Ailin Gregory Referral Liaison
--- NOTE | 2021-09-20 18:12 | NUR ---
SHIFT SUMMARY PT MEDICAL NO TELE STATUS, AWAITING DISCHARGE HOME ON HOSPICE (PLAN FOR THURSDAY, 09/23). PT CONTINUES TO OPEN EYES & WATCH STAFF IN RM. PT NONVERBAL, UNABLE TO COMMUNICATE OR MAKE FACIAL EXPRESSIONS. PT VSS. SPO2 > 92% ON TRACH 8L BLOWBY. PT W/ MODERATE AMOUNT OF THICK KINCAID SECRETIONS WHEN SUCTIONING TRACH. PT MEDICATED FOR POSSIBLE PAIN W/ PRN TYLENOL X1 & PRN FENTANTL X1 D/T ELEVATED BP (PT NOT ABLE TO COMMUNICATE OR EXPRESS PAIN). HOSPICE NURSE & NEWSPAPER CARRIER TO PT RM TO DISCUSS HOME CARE W/ PT. TF CONTINUES TO INFUSE VIA PEG TUBE PER ORDERS. FERREIRA CATH PATENT & DRAINING.
--- NOTE | 2021-09-21 05:02 | NUR ---
SHIFT SUMMARY: PATIENT PAINFUL TWICE THIS SHIFT. MEDICATED PER EMAR WITH TYLENOL AND LATER WITH FENTANYL PER EMAR. THIS RN ENTERED ROOM FOR VS AND ORAL CARE AND NOTED PATIENT MORE FLUSHED IN FACE AND CRYING SHORTLY AFTER 0300. BP WAS VERY HIGH AND NO FEVER. MEDICATED AND FLUSHING SUBSIDED AFTER MEDICATION. PICC LINES FLUSHED AND CAPS CHANGED. PATIENT Q2 TURNS AND ORAL CARE Q4. SUCTIONED MULTIPLE TIMES T/O SHIFT WITH TENACIOUS, WHITE SPUTUM. TUBE FEEDING RUNNING CONTINOUSLY, LINES CHANGED AT 0200. NO ADVERSE EVENTS THIS SHIFT. WILL CONTINUE TO MONITOR AND REPORT TO ONCOMING RN.
--- NOTE | 2021-09-21 13:51 | NUR ---
Review of pt symptoms with nursing. Less labored nursing report episode of repirations and sats dropping and changes in temperature.
--- NOTE | 2021-09-21 18:12 | NUR ---
SHIFT SUMMARY PT ALERT AT TIMES, OPENING EYES & WATCHING STAFF IN RM. PT NONVERBAL, UNABLE TO COMMUNICATE OR MAKE FACIAL EXPRESSIONS. PT MEDICAL NO TELE STATUS. VSS. SPO2 > 92% ON TRACH 6L O2. PT BP ELEVATED, MEDICATED FOR POSSIBLE PAIN W/ PRN TYLENOL X1 & PRN IV FENTANYL X1 THIS SHIFT. TF INFUSING VIA PEG TUBE PER ORDERS. FERREIRA CATH PATENT & DRAINING. PT W/ FORMED BM THIS SHIFT. COCCYX PRESSURE ULCER DRESSING CHANGED & CHART PHOTO UPDATE TAKEN & PLACED IN CHART.
--- NOTE | 2021-09-22 05:20 | NUR ---
SHIFT SUMMARY: PATIENT TREATED FOR PAIN WITH FENTANYL EARLY IN SHIFT. VS STABLE T/O SHIFT WITH NO OTHER S/S OF PAIN. ORAL CARE PER PROTOCOL AND SUCTIONING PRN. THE HUMIDIFYING TUBING BEGAN TO MAKE A "BACKFIRING" NOISE AROUND 0400 - CALLED CECI IN [place] WHO WALKED US THROUGH HOW TO DRAINING THE "ELIO" APPROPRIATELY. THIS RESOLVED THE NOISE. PATIENT TRACKED NURSES DURING REPORT AND OPENED EYES TO SOUND T/O SHIFT. PATIENT RESTING IN BED, NEW ORAL KIT IN PLACE, AND FRESH SUCTIONING EQUIPMENT SET UP. WILL CONTINUE TO MONITOR AND REPORT TO ONCOMING RN.
--- NOTE | 2021-09-22 12:19 | NUR ---
Brief visit to bedside and case conference with pt's RN. Pt is flushed and edematous about neck and face as previously. She did not open her eyes to voice or touch. She appears more comfortable today than yesterday. Teaching cont to on care. Plan per nursing is to have him demonstrate care today with plan for d/c home with hospice tomorrow.
--- NOTE | 2021-09-22 17:31 | NUR ---
SHIFT SUMMARY: NO ACUTE CHANGES T/OUT SHIFT TODAY. PT AROUSES TO STAFF IN ROOM AND WILL TRACK MOVEMENT OF STAFF IN ROOM. PT MAINTAINING O2 SATS >92% ON TRACH W/6L BLOWBY, SUCTIONING PERFORMED OFTEN T/OUT THE DAY W/MODERATE AMOUNT OF THICK YELLOW/KINCAID SECRETIONS. PT MEDICATED W/TYLENOL ONCE THIS AM D/TO ELEVATED BP AND ONCE W/FENTANYL PER REQUEST THIS AFTERNOON. PEG TUBE INFUSION CONTINUES AT GOAL RATE. HEAD GIRLS GOLF COACH TO BEDSIDE AFTER SPOUSE ARRIVAL TO F/UP RE: TEACHING AND TO ANSWER QUESTIONS. WHILE VISITING, PT SPOUSE PARTICIPATES IN CARE AND ASKS APPROPRIATE QUESTIONS. ROUTINE ORAL CARE AND REPOSITIONING MAINTAINED. OF NOW, PLAN FOR DC HOME ON HOSPICE 09/23 CONTINUES. WILL CONTINUE TO MONITOR AND TREAT ACCORDINGLY UNTIL CHANGE OF SHIFT.
--- NOTE | 2021-09-23 05:57 | NUR ---
SUMMARY NO NEW CHANGES NOTED. PT ON CONTINOUS FEEDING ORDERED. PT REQUIRED TRACH SUCTIONING AT TIMES. PT REPOSITIONED ORDERED. PT MEDICATED FOR DISCOMFORT PER EMAR. PT RESTING AND IN NO DISTRESS.
[2021-09-23] MEDS ORDERED: DEXA2 PT (08:40)
[2021-09-23] MEDS ORDERED: MORP20L PT (08:59)
[2021-09-23] MEDS ORDERED: REDNESS RELIEVE15 M1 BOTHEYES (08:59)
--- NOTE | 2021-09-23 11:03 | NUR ---
Patient is to discharge at 1030 with orders for hospice. Contacted [facility] ([place]) to arrange gurney transport to patient's residence. Pick-up at 1030 will be provided by [facility]. Faxed copy of face sheet and PCS form to [facility] Business office per protocol. Placed copies of the above in nurse video game producer for manager transport. Notified nurse career development manager (Jass Virgen), leases and land supervisor (Camelia Cooper), and bedside RN (Noel Gusman) of the above. All are agreeable to the above. Requested discharge orders from hospitalist (Dr. Rush). Provided hard copy prescriptions for morphine and lorazepam to patient's (Radha Rojo) on Thursday- 09/20/2021. Faxed copies of discharge order and med list to [facility] aircraft sales representative. No further interventions required. Ailin Gregory Referral Liaison
--- NOTE | 2021-09-23 11:22 | NUR ---
DISCHARGE: PT DISCHARGED HOME IN NO ACUTE DISTRESS. THIS PAST WEEK, PT'S HAS BEEN COACHED AT BEDSIDE BY MULTIPLE DEPARTMENTS AND STAFF MEMBERS ON HOME CARE. TODAY, PT'S REACHES OUT TO HOSPICE TEAM TO LET THEM KNOW OF SUPPLIES HE NEEDS AND THOSE SUPPLIES WERE SENT HOME WITH PT. PICC LINE REMOVED WNL, FERREIRA CATHETER REMAINS IN PLACE. EMS TRANSPORT ARRIVES, PT TRANSFERED TO [facility], AND ESCORTED FROM DEPARTMENT.
== END 2021-09-23 11:16 | disposition hospice, home (50) | DRG 870 ==
LOC: ER 03:17 → ICUW 04:14 → PCU 09-07 17:40
PROVIDERS: Family Medicine; Internal Medicine Critical Care Medicine; Pharmacist; Student in an Organized Health Care Education/Training Program; ADMIT Internal Medicine
PROC: 03HY32Z Insertion of Monitoring Device into Upper Artery, Percutaneous Approach (ICD-10-PCS; principal; 2021-08-18)
PROC: 5A1955Z Respiratory Ventilation, Greater than 96 Consecutive Hours (ICD-10-PCS; 2021-08-18)
PROC: 4A133B1 Monitoring of Arterial Pressure, Peripheral, Percutaneous Approach (ICD-10-PCS; 2021-08-18)
PROC: 4A133J1 Monitoring of Arterial Pulse, Peripheral, Percutaneous Approach (ICD-10-PCS; 2021-08-18)
PROC: 0BJ18ZZ Inspection of Trachea, Via Natural or Artificial Opening Endoscopic (ICD-10-PCS; 2021-08-19)
DX: A41.9 Sepsis, unspecified organism (principal); J96.21 Acute and chronic respiratory failure with hypoxia; R65.21 Severe sepsis with septic shock; J95.03 Malfunction of tracheostomy stoma; N39.0 Urinary tract infection, site not specified; E87.1 Hypo-osmolality and hyponatremia; C79.31 Secondary malignant neoplasm of brain; Z51.5 Encounter for palliative care; E03.9 Hypothyroidism, unspecified; E87.6 Hypokalemia; F32.9 Major depressive disorder, single episode, unspecified; Z98.51 Tubal ligation status; Z98.890 Other specified postprocedural states; Z88.2 Allergy status to sulfonamides; Z79.899 Other long term (current) drug therapy; Z93.0 Tracheostomy status; F32.A Depression, unspecified; Z88.1 Allergy status to other antibiotic agents; Z20.822 Contact with and (suspected) exposure to COVID-19; E87.5 Hyperkalemia
CPT/HCPCS: 0241U; 31502; 31720; 36415; 36569; 36600; 36620; 51702; 70450; 71045; 71260; 80048; 80053; 80069; 80202; 81001; 82248; 82330; 82803; 82947; 83605; 83735; 84100; 84484; 85025; 87040; 87070; 87077; 87086; 87103; 87186; 87205; 90686; 93005; 93010; 94003; 94640; 94762; 96365-59; 99285-25; A9270; C1751; C1769; C1894; G0008; J0360; J0692; J0696; J1650; J1940; J2185; J2543; J3010; J3370; J3475; J7030; J7050; J7060; J7120; Q9967